=== PATIENT | female | born 1990 | race Caucasian/White ===

== ENCOUNTER 2016-04-12 19:33 | Emergency (ER) | payer MEDICAID ==
[2016-04-12 19:42] VITALS: BP 128/58
--- NOTE | 2016-04-12 20:16 | ER Document Report ---
ED Medical Screen (RME) - General Stated Complaint: VAGINAL BLEEDING Time seen by provider: 20:14 Mode of Arrival: Ambulatory Information source: Patient Notes: 25 yo female with dark vaginal bleeding for intermittently for 2 months. recent pap normal. Low abd pain all the way across tonight. Last dep shot january 2016. TRAVEL OUTSIDE OF THE [place] IN LAST 30 DAYS: No - Related Data Allergies/Adverse Reactions: Penicillins Allergy (Verified 12/17/15 02:13) tramadol Allergy (Verified 12/17/15 02:13) Past Medical History Pulmonary Medical History: Denies: Hx Tuberculosis Neurological Medical History: Denies: Hx Seizures GI Medical History: Denies: Hx Gastroesophageal Reflux Disease Musculoskeltal Medical History: Reports Hx Arthritis - Chronic knee pain, Reports Hx Musculoskeletal Deformity, Reports Hx Musculoskeletal Trauma Psychiatric Medical History: Reports: Hx Attention Deficit Hyperactivity Disorder Past Surgical History: Reports: Hx Cholecystectomy - Had ERCP the next day for stones in the duct. Apparently may have had more. No report of ulcer. Denies : Hx Section, Hx Hysterectomy - Immunizations Immunizations up to date: Yes Hx Diphtheria, Pertussis, Tetanus Vaccination: Yes - 2013 Physical Exam - Vital signs Vitals: Temp Pulse Resp BP Pulse Ox 98.0 F 78 16 128/58 H 94 04/12/16 19:39 04/12/16 19:39 04/12/16 19:39 04/12/16 19:39 04/12/16 19:39 Course - Vital Signs Vital signs: Temp Pulse Resp BP Pulse Ox 98.0 F 78 16 128/58 H 94 04/12/16 19:39 04/12/16 19:39 04/12/16 19:39 04/12/16 19:39 04/12/16 19:39
[2016-04-12 20:50] LABS: ABSOLUTE BASOPHILS # (AUTO) 0.1 10^3/uL (0.0-0.2); ABSOLUTE EOSINOPHILS # (AUTO) 0.1 10^3/uL (0.0-0.6); ABSOLUTE MONOCYTES (AUTO) 0.5 10^3/uL (0.1-1.4); ABSOLUTE NEUT (AUTO) 5.2 10^3/uL (1.7-8.2); BASOPHILS % (AUTO) 0.9 % (0-2); EOSINOPHILS % (AUTO) 1.7 % (0-6); HEMATOCRIT 42.3 % (36.0-47.0); HEMOGLOBIN 14.6 g/dL (12.0-15.5); HGB HCT DIFFERENCE 1.5; LYMPHOCYTES % (AUTO) 25.6 % (13-45); MEAN CORPUSCULAR HEMOGLOBIN 30.7 pg (27.0-33.4); MEAN CORPUSCULAR HGB CONC 34.4 g/dL (32.0-36.0); MEAN CORPUSCULAR VOLUME 89 fl (80-97); MONOCYTES % (AUTO) 6.4 % (3-13); RED BLOOD COUNT 4.75 10^6/uL (3.72-5.28); SEGMENTED NEUTROPHILS % (AUTO) 65.4 % (42-78)
[2016-04-12 21:08] LABS: ALANINE AMINOTRANSFERASE 24 U/L (9-52); ALBUMIN 4.3 g/dL (3.5-5.0); ALKALINE PHOSPHATASE 81 U/L (38-126); ANION GAP 11 (5-19); ASPARTATE AMINO TRANSFERASE 19 U/L (14-36); BILIRUBIN,TOTAL 0.6 mg/dL (0.2-1.3); BLOOD UREA NITROGEN 21 mg/dL (7-20); CALCIUM 9.4 mg/dL (8.4-10.2); CARBON DIOXIDE 27 mmol/L (22-30); CHLORIDE 103 mmol/L (98-107); CREATININE RESULT 1.24 mg/dL (0.52-1.25); GLUCOSE 78 mg/dL (75-110); POTASSIUM 4.3 mmol/L (3.6-5.0); TOTAL PROTEIN 7.2 g/dL (6.3-8.2)
[2016-04-12 21:17] LABS: APPEARANCE,URINE CLEAR; BILIRUBIN,URINE NEGATIVE (NEGATIVE); GLUCOSE, URINE NEGATIVE (NEGATIVE); KETONES,URINE NEGATIVE (NEGATIVE); LEUKOCYTE ESTERASE,URINE NEGATIVE (NEGATIVE); NITRITE,URINE NEGATIVE (NEGATIVE); PROTEIN,URINE NEGATIVE (NEGATIVE); URINE SPECIFIC GRAVITY 1.029
--- NOTE | 2016-04-12 22:53 | ER Document Report ---
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 States that the symptoms started after she discontinued her Depo-Provera shot. No history of similar symptoms in the past. She has not seen her primary care physician regarding today's concerns. Nothing improves or worsens or symptoms. She does describe her abdominal pain is a mild , dull, intermittent abdominal cramping. She states that she is going through 1 -2 pads per day in terms of her bleeding. TRAVEL OUTSIDE OF THE [place] IN LAST 30 DAYS: No - Related Data Allergies/Adverse Reactions: Penicillins Allergy (Verified 04/12/16 20:15) tramadol Allergy (Verified 04/12/16 20:15) Past Medical History - General Information source: Patient - Social History Smoking Status: Never Smoker Frequency of alcohol use: None Drug Abuse: None Lives with: Spouse/Significant other Family History: Malignancy, Other - Sister was diagnosed and treated for spinal meningitis about 3 months ago.. denies: Arthritis, CAD, CVA, DM, Hyperlipidemia , Hypertension, Thyroid Disfunction Patient has suicidal ideation: No Patient has homicidal ideation: No Pulmonary Medical History: Denies: Hx Tuberculosis Neurological Medical History: Denies: Hx Seizures GI Medical History: Denies: Hx Gastroesophageal Reflux Disease Musculoskeltal Medical History: Reports Hx Arthritis - Chronic knee pain, Reports Hx Musculoskeletal Deformity, Reports Hx Musculoskeletal Trauma Psychiatric Medical History: Reports: Hx Attention Deficit Hyperactivity Disorder Past Surgical History: Reports: Hx Cholecystectomy - Had ERCP the next day for stones in the duct. Apparently may have had more. No report of ulcer. Denies : Hx Section, Hx Hysterectomy - Immunizations Immunizations up to date: Yes Hx Diphtheria, Pertussis, Tetanus Vaccination: Yes - 2013 Review of Systems - Review of Systems Notes: Constitutional: Negative for fever. HENT: Negative for sore throat. Eyes: Negative for visual changes. Cardiovascular: Negative for chest pain. Respiratory: Negative for shortness of breath. Gastrointestinal: Positive for abdominal cramping, negative for vomiting or diarrhea. Genitourinary: Negative for dysuria. Positive for vaginal bleeding Musculoskeletal: Negative for back pain. Skin: Negative for rash. Neurological: Negative for headaches, weakness or numbness. 10 point ROS negative except as marked above and in HPI. Physical Exam - Vital signs Vitals: Temp Pulse Resp BP Pulse Ox 98.0 F 78 16 128/58 H 94 04/12/16 19:39 04/12/16 19:39 04/12/16 19:39 04/12/16 19:39 04/12/16 19:39 Interpretation: Normal Notes: PHYSICAL EXAMINATION: GENERAL: Well-appearing, well-nourished and in no acute distress. HEAD: Atraumatic, normocephalic. EYES: Pupils equal round and reactive to light, extraocular movements intact, sclera anicteric, conjunctiva are normal. ENT: nares patent, oropharynx clear without exudates. Moist mucous membranes. NECK: Normal range of motion, supple without lymphadenopathy LUNGS: Breath sounds clear to auscultation bilaterally and equal. No wheezes rales or rhonchi. HEART: Regular rate and rhythm without murmurs ABDOMEN: Soft, nontender, normoactive bowel sounds. No guarding, no rebound. No masses appreciated. EXTREMITIES: Normal range of motion, no pitting or edema. No cyanosis. NEUROLOGICAL: No focal neurological deficits. Moves all extremities spontaneously and on command. PSYCH: Normal mood, normal affect. SKIN: Warm, Dry, normal turgor, no rashes or lesions noted. Course - Re-evaluation Re-evalutation: 04/13/16 04:21 Presentation is most consistent with dysfunctional uterine bleeding and otherwise well-appearing patient. Her hemoglobin was within normal limits. She is not . No tachycardia or hypotension. Examination is otherwise unremarkable. She denies bleeding through more than 2 pads an hour at any point in time. No indication for ultrasound at this time based on benign exam, vitals and laboratories. No active bleeding at this time. Patient will be started on oral control pills to help discontinue the bleeding. She has been encouraged to follow-up with [facility]UR[facility]. Return precautions have been discussed. - Vital Signs Vital signs: Temp Pulse Resp BP Pulse Ox 98.0 F 78 16 128/58 H 94 04/12/16 19:39 04/12/16 19:39 04/12/16 19:39 04/12/16 19:39 04/12/16 19:39 - Laboratory Result Diagrams: 04/12/16 19:00 04/12/16 19:00 Laboratory results interpreted by me: 04/12/16 04/12/16 19:00 20:45 BUN 21 H Est GFR (Non-Af Amer) 54 L Urine Urobilinogen 2.0 H Discharge - Discharge Clinical Impression: Dysfunctional uterine bleeding Condition: Good Disposition: HOME, SELF-CARE Additional Instructions: You were seen today for dysfunctional uterine bleeding. This is when you have vaginal bleeding and abdominal cramping off of your normal menstrual cycle. You have been started on control pills to help regulate your cycle and control your symptoms. You need to follow-up with [facility]OG[facility] NURSE or your primary care physician the next 1-3 days. Return immediately if you worsening pain, you began bleeding through more than 2 pads per hour for more than 3 hours, you pass out, have persistent vomiting, develop a fever greater than 100.4F, or any other symptoms that are concerning to you. Prescriptions: Norgestimate-Ethinyl Estradiol [Sprintec 28 Day Tablet] 1 each PO DAILY #1 packet Forms: Return to Work Referrals: HARMONY ASH S[facility]ER [Primary Care Provider] - Follow up in 3-5 days
[2016-04-12] MEDS ORDERED: KETOROLAC TROMETHAMINE 60 MG/2 ML SDV ONE (23:30)
[2016-04-13] MEDS ORDERED: KETOROLAC TROMETHAMINE 60 MG/2 ML SDV IM ONE (01:51)
== END 2016-04-12 23:35 | disposition home or self-care (01) ==
LOC: ER 19:33
DX: N93.8 Other specified abnormal uterine and vaginal bleeding (principal); R10.30 Lower abdominal pain, unspecified; Z88.0 Allergy status to penicillin; Z88.5 Allergy status to narcotic agent; Z90.49 Acquired absence of other specified parts of digestive tract
CPT/HCPCS: 99284; 96372; 36415; 87086; 84703; 85025; 80053; 81001; J1885

== ENCOUNTER 2016-05-22 21:33 | Emergency (ER) | payer MEDICAID ==
[2016-05-22] MEDS ORDERED: ONDANSETRON 4 MG TAB.RAPDIS PO ONE (22:39)
[2016-05-22] MEDS ORDERED: ACETAMINOPHEN 325 MG TABLET PO ONE (22:39)
--- NOTE | 2016-05-22 22:39 | ER Document Report ---
ED Medical Screen (RME) - General Stated Complaint: HEADACHE,VOMITING Time seen by provider: 22:37 Mode of Arrival: Ambulatory Information source: Patient Notes: 25-year-old female presents to ED for headache nausea and vomiting and lightheadedness since about 5 PM. States she was on the depo then stopped taking the depo in March has not had a period since. Does not remember her last menstrual period. I have greeted and performed a rapid initial assessment of this patient. A comprehensive ED assessment and evaluation of the patient, analysis of test results and completion of medical decision making process will be conducted by an additional ED providers. TRAVEL OUTSIDE OF THE [place] IN LAST 30 DAYS: No - Related Data Allergies/Adverse Reactions: Penicillins Allergy (Verified 04/12/16 20:15) tramadol Allergy (Verified 04/12/16 20:15) Past Medical History Pulmonary Medical History: Denies: Hx Tuberculosis Neurological Medical History: Denies: Hx Seizures GI Medical History: Denies: Hx Gastroesophageal Reflux Disease Musculoskeltal Medical History: Reports Hx Arthritis - Chronic knee pain, Reports Hx Musculoskeletal Deformity, Reports Hx Musculoskeletal Trauma Psychiatric Medical History: Reports: Hx Attention Deficit Hyperactivity Disorder Past Surgical History: Reports: Hx Cholecystectomy - Had ERCP the next day for stones in the duct. Apparently may have had more. No report of ulcer. Denies : Hx Section, Hx Hysterectomy - Immunizations Immunizations up to date: Yes Hx Diphtheria, Pertussis, Tetanus Vaccination: Yes - 2013 Physical Exam - Vital signs Vitals: Temp Pulse Resp BP Pulse Ox 98.0 F 72 12 119/56 L 99 05/22/16 22:36 05/22/16 22:36 05/22/16 22:36 05/22/16 22:36 05/22/16 22:36 Course - Vital Signs Vital signs: Temp Pulse Resp BP Pulse Ox 98.0 F 72 12 119/56 L 99 05/22/16 22:36 05/22/16 22:36 05/22/16 22:36 05/22/16 22:36 05/22/16 22:36
[2016-05-23 02:52] LABS: ABSOLUTE BASOPHILS # (AUTO) 0.1 10^3/uL (0.0-0.2); ABSOLUTE EOSINOPHILS # (AUTO) 0.1 10^3/uL (0.0-0.6); ABSOLUTE LYMPHOCYTES (AUTO) 2.5 10^3/uL (0.5-4.7); ABSOLUTE MONOCYTES (AUTO) 0.6 10^3/uL (0.1-1.4); ABSOLUTE NEUT (AUTO) 5.8 10^3/uL (1.7-8.2); BASOPHILS % (AUTO) 0.6 % (0-2); EOSINOPHILS % (AUTO) 1.4 % (0-6); HEMATOCRIT 39.2 % (36.0-47.0); HEMOGLOBIN 13.8 g/dL (12.0-15.5); HGB HCT DIFFERENCE 2.2; LYMPHOCYTES % (AUTO) 27.6 % (13-45); MEAN CORPUSCULAR HEMOGLOBIN 31.8 pg (27.0-33.4); MEAN CORPUSCULAR HGB CONC 35.2 g/dL (32.0-36.0); MEAN CORPUSCULAR VOLUME 90 fl (80-97); MONOCYTES % (AUTO) 6.2 % (3-13); RED BLOOD COUNT 4.35 10^6/uL (3.72-5.28); RED CELL DISTRIBUTION WIDTH 12.7 % (11.5-14.0); SEGMENTED NEUTROPHILS % (AUTO) 64.2 % (42-78); WHITE BLOOD COUNT 9.1 10^3/uL (4.0-10.5)
[2016-05-23] MEDS ORDERED: DIPHENHYDRAMINE HCL 50 MG/ML VIAL IV ONE (02:54)
[2016-05-23] MEDS ORDERED: NORMAL SALINE 1000 ML 1,000 ML IV PRN (02:54)
[2016-05-23] MEDS ORDERED: METOCLOPRAMIDE HCL INJ/PF 10 MG/2 ML SDV IV ONE (02:54)
[2016-05-23 03:01] LABS: ALANINE AMINOTRANSFERASE 18 U/L (9-52); ALBUMIN 3.6 g/dL (3.5-5.0); ALKALINE PHOSPHATASE 81 U/L (38-126); ANION GAP 10 (5-19); ASPARTATE AMINO TRANSFERASE 18 U/L (14-36); BILIRUBIN,TOTAL 0.4 mg/dL (0.2-1.3); BLOOD UREA NITROGEN 21 mg/dL (7-20); CALCIUM 9.4 mg/dL (8.4-10.2); CARBON DIOXIDE 26 mmol/L (22-30); CHLORIDE 104 mmol/L (98-107); CREATININE RESULT 0.74 mg/dL (0.52-1.25); GLUCOSE 115 mg/dL (75-110); POTASSIUM 3.9 mmol/L (3.6-5.0); SODIUM 139.5 mmol/L (137-145); TOTAL PROTEIN 6.8 g/dL (6.3-8.2)
--- NOTE | 2016-05-23 03:32 | ER Document Report ---
ED Headache - General Chief Complaint: Headache Stated Complaint: HEADACHE,VOMITING Time seen by provider: 03:26 Mode of Arrival: Ambulatory Information source: Patient TRAVEL OUTSIDE OF THE [place] IN LAST 30 DAYS: No - HPI Patient complains to provider of: Headache, "Migraine" Patient reports: Hx chronic headaches Onset: This afternoon Onset was: Gradual Timing: Better Quality of pain: Achy, Pressure Severity: Moderate Pain Level: 3 Associated symptoms: Double/blurred vision, Lightheaded, Nausea/vomiting Similar symptoms previously: Yes Recently seen / treated by doctor: No Notes: Patient is a 25-year-old female who presents to emergency room complaining of headache with lightheadedness, nausea, vomiting 3 episodes, blurred vision, she denies a head injury, no fevers, no next deafness, pain is in the frontal region, inconsistent with headaches that she has had multiple times in the past , she has not taken anything at home for her symptoms - Related Data Allergies/Adverse Reactions: Penicillins Allergy (Verified 05/22/16 22:40) tramadol Allergy (Verified 05/22/16 22:40) Past Medical History - General Information source: Patient - Social History Smoking Status: Current Every Day Smoker Chew tobacco use (# tins/day): No Frequency of alcohol use: None Drug Abuse: None Family History: Malignancy, Other - Sister was diagnosed and treated for spinal meningitis about 3 months ago.. denies: Arthritis, CAD, CVA, DM, Hyperlipidemia , Hypertension, Thyroid Disfunction Patient has suicidal ideation: No Patient has homicidal ideation: No Pulmonary Medical History: Denies: Hx Tuberculosis Neurological Medical History: Denies: Hx Seizures Renal/ Medical History: Denies: Hx Peritoneal Dialysis GI Medical History: Denies: Hx Gastroesophageal Reflux Disease Musculoskeltal Medical History: Reports Hx Arthritis - Chronic knee pain, Reports Hx Musculoskeletal Deformity, Reports Hx Musculoskeletal Trauma Psychiatric Medical History: Reports: Hx Attention Deficit Hyperactivity Disorder Past Surgical History: Reports: Hx Cholecystectomy - Had ERCP the next day for stones in the duct. Apparently may have had more. No report of ulcer. Denies : Hx Section, Hx Hysterectomy - Immunizations Immunizations up to date: Yes Hx Diphtheria, Pertussis, Tetanus Vaccination: Yes - 2013 Review of Systems - Review of Systems Constitutional: No symptoms reported EENT: No symptoms reported Cardiovascular: No symptoms reported Respiratory: No symptoms reported Gastrointestinal: See HPI Genitourinary: No symptoms reported Female Genitourinary: No symptoms reported Musculoskeletal: No symptoms reported Skin: No symptoms reported Hematologic/Lymphatic: No symptoms reported Neurological/Psychological: See HPI -: Yes All other systems reviewed and negative Physical Exam - Vital signs Vitals: Temp Pulse Resp BP Pulse Ox 98.0 F 72 12 119/56 L 99 05/22/16 22:36 05/22/16 22:36 05/22/16 22:36 05/22/16 22:36 05/22/16 22:36 Interpretation: Normal - General General appearance: Appears well, Alert - HEENT Head: Normocephalic, Atraumatic Eyes: Normal Conjunctiva: Normal Extraocular movements intact: Yes Eyelashes: Normal Pupils: PERRL Sinus: Frontal - Mild frontal sinus tenderness Nasal: Normal Mouth/Lips: Normal Mucous membranes: Normal Pharynx: Normal Neck: Normal - Respiratory Respiratory status: No respiratory distress Chest status: Nontender Breath sounds: Normal Chest palpation: Normal - Cardiovascular Rhythm: Regular Heart sounds: Normal auscultation Murmur: No - Abdominal Inspection: Normal Distension: No distension Bowel sounds: Normal Tenderness: Nontender Organomegaly: No organomegaly - Back Back: Normal, Nontender - Extremities General upper extremity: Normal inspection, Nontender, Normal color, Normal ROM , Normal temperature General lower extremity: Normal inspection, Nontender, Normal color, Normal ROM , Normal temperature, Normal weight bearing. No: Lisa's sign - Neurological Neuro grossly intact: Yes Cognition: Normal Orientation: AAOx4 Matteson Coma Scale Eye Opening: Spontaneous [place] Coma Scale Verbal: Oriented Samira Coma Scale Motor: Obeys Commands Samira Coma Scale Total: 15 Speech: Normal Motor strength normal: LUE, RUE, LLE, RLE Sensory: Normal - Psychological Associated symptoms: Normal affect, Normal mood - Skin Skin Temperature: Warm Skin Moisture: Dry Skin Color: Normal Course - Re-evaluation Re-evalutation: 05/23/16 03:26 Patient resting comfortably, reports feeling much better and wants to go home - Vital Signs Vital signs: Temp Pulse Resp BP Pulse Ox 98.1 F 74 18 120/74 100 05/23/16 03:44 05/23/16 03:44 05/23/16 03:44 05/23/16 03:44 05/23/16 03:44 - Laboratory Result Diagrams: 05/23/16 02:41 05/23/16 02:41 Laboratory results interpreted by me: 05/23/16 02:41 BUN 21 H Glucose 115 H Discharge - Discharge Clinical Impression: Headache Qualifiers: Headache type: unspecified Headache chronicity pattern: acute headache Intractability: not intractable Qualified Code(s): R51 - Headache Condition: Stable Disposition: HOME, SELF-CARE Instructions: Headache ([facility]) Additional Instructions: Follow up with your primary care provider in one to 2 days. Return to the emergency room immediately if symptoms worsen or any additional concerns. Forms: Return to Work
[2016-05-23 03:46] VITALS: BP 120/74
== END 2016-05-23 03:35 | disposition home or self-care (01) ==
LOC: ER 21:33
DX: R51 Headache (principal); R42 Dizziness and giddiness; R11.2 Nausea with vomiting, unspecified; H53.8 Other visual disturbances; F17.200 Nicotine dependence, unspecified, uncomplicated; Z88.0 Allergy status to penicillin; Z88.5 Allergy status to narcotic agent
CPT/HCPCS: 99284; 96374; 96375; 36415; 84702; 85025; 80053; J3490; J1200; S0119; J2765

== ENCOUNTER 2016-08-09 16:24 | Emergency (ER) | payer MEDICAID ==
--- NOTE | 2016-08-09 17:01 | ER Document Report ---
ED Medical Screen (RME) - General Chief Complaint: Vaginal Bleeding Stated Complaint: VOMITING,URINARY PAIN Notes: 25 yo female c/o dysuria x 3 days, + n/v. no fever, + low back pain, + lower abdominal pain. no vaginal discharge, pain or odor. + vaginal bleeding x 3 days, passed large clot last night. pt has not had period x 2 months. no chronic illness TRAVEL OUTSIDE OF THE [place] IN LAST 30 DAYS: No - Related Data Allergies/Adverse Reactions: Penicillins Allergy (Verified 08/09/16 16:31) tramadol Allergy (Verified 08/09/16 16:31) Past Medical History Pulmonary Medical History: Denies: Hx Tuberculosis Neurological Medical History: Denies: Hx Seizures Renal/ Medical History: Denies: Hx Peritoneal Dialysis GI Medical History: Denies: Hx Gastroesophageal Reflux Disease Musculoskeltal Medical History: Reports Hx Arthritis - Chronic knee pain, Reports Hx Musculoskeletal Deformity, Reports Hx Musculoskeletal Trauma Psychiatric Medical History: Reports: Hx Attention Deficit Hyperactivity Disorder Past Surgical History: Reports: Hx Cholecystectomy - Had ERCP the next day for stones in the duct. Apparently may have had more. No report of ulcer. Denies : Hx Section, Hx Hysterectomy - Immunizations Immunizations up to date: Yes Hx Diphtheria, Pertussis, Tetanus Vaccination: Yes - 2013 Physical Exam - Vital signs Vitals: Temp Pulse Resp BP Pulse Ox 98.5 F 96 16 125/64 97 08/09/16 16:28 08/09/16 16:28 08/09/16 16:28 08/09/16 16:28 08/09/16 16:28 Course - Vital Signs Vital signs: Temp Pulse Resp BP Pulse Ox 98.5 F 96 16 125/64 97 08/09/16 16:28 08/09/16 16:28 08/09/16 16:28 08/09/16 16:28 08/09/16 16:28
[2016-08-09 17:54] LABS: ABSOLUTE BASOPHILS # (AUTO) 0.1 10^3/uL (0.0-0.2); ABSOLUTE EOSINOPHILS # (AUTO) 0.1 10^3/uL (0.0-0.6); ABSOLUTE LYMPHOCYTES (AUTO) 1.6 10^3/uL (0.5-4.7); ABSOLUTE MONOCYTES (AUTO) 0.5 10^3/uL (0.1-1.4); ABSOLUTE NEUT (AUTO) 6.9 10^3/uL (1.7-8.2); BASOPHILS % (AUTO) 0.6 % (0-2); EOSINOPHILS % (AUTO) 1.2 % (0-6); HEMATOCRIT 42.6 % (36.0-47.0); HEMOGLOBIN 14.7 g/dL (12.0-15.5); HGB HCT DIFFERENCE 1.5; LYMPHOCYTES % (AUTO) 17.8 % (13-45); MEAN CORPUSCULAR HEMOGLOBIN 31.3 pg (27.0-33.4); MEAN CORPUSCULAR HGB CONC 34.5 g/dL (32.0-36.0); MEAN CORPUSCULAR VOLUME 91 fl (80-97); MONOCYTES % (AUTO) 5.7 % (3-13); RED CELL DISTRIBUTION WIDTH 13.1 % (11.5-14.0); SEGMENTED NEUTROPHILS % (AUTO) 74.7 % (42-78); WHITE BLOOD COUNT 9.3 10^3/uL (4.0-10.5)
[2016-08-09 17:55] LABS: APPEARANCE,URINE CLOUDY; BILIRUBIN,URINE NEGATIVE (NEGATIVE); GLUCOSE, URINE NEGATIVE (NEGATIVE); KETONES,URINE NEGATIVE (NEGATIVE); LEUKOCYTE ESTERASE,URINE MODERATE (NEGATIVE); NITRITE,URINE NEGATIVE (NEGATIVE); PROTEIN,URINE 30 mg/dL (NEGATIVE); URINE SPECIFIC GRAVITY 1.027
--- NOTE | 2016-08-09 17:59 | ER Document Report ---
ED GI/ - General Chief Complaint: Vaginal Bleeding Stated Complaint: VOMITING,URINARY PAIN Notes: 25 yo female c/o dysuria, n/v, vaginal bleeding x 3 days. passed large clot last night. no vaginal pain, odor or discharge TRAVEL OUTSIDE OF THE [place] IN LAST 30 DAYS: No - HPI Patient complains to provider of: Abdominal pain, Dysuria, Vaginal bleeding Timing/Duration: Gradual, Persistent Location: Suprapubic Vaginal bleeding (Compared to normal period): Similar Menstrual period history: Irregular - no periord x 2 months. off Depo x 6 months Sexual history: Active Associated symptoms: Nausea. denies: Vomiting Exacerbated by: Denies Relieved by: Denies Similar symptoms previously: No - Related Data Allergies/Adverse Reactions: Penicillins Allergy (Verified 08/09/16 16:31) tramadol Allergy (Verified 08/09/16 16:31) Past Medical History - General Information source: Patient - Social History Smoking Status: Current Every Day Smoker Frequency of alcohol use: None Drug Abuse: None Lives with: Family Family History: Malignancy, Other - Sister was diagnosed and treated for spinal meningitis about 3 months ago.. denies: Arthritis, CAD, CVA, DM, Hyperlipidemia , Hypertension, Thyroid Disfunction Patient has suicidal ideation: No Patient has homicidal ideation: No - Medical History Medical History: Negative Pulmonary Medical History: Denies: Hx Tuberculosis Neurological Medical History: Denies: Hx Seizures Renal/ Medical History: Denies: Hx Peritoneal Dialysis GI Medical History: Denies: Hx Gastroesophageal Reflux Disease Musculoskeltal Medical History: Reports Hx Arthritis - Chronic knee pain, Reports Hx Musculoskeletal Deformity, Reports Hx Musculoskeletal Trauma Psychiatric Medical History: Reports: Hx Attention Deficit Hyperactivity Disorder Past Surgical History: Reports: Hx Cholecystectomy - Had ERCP the next day for stones in the duct. Apparently may have had more. No report of ulcer. Denies : Hx Section, Hx Hysterectomy - Immunizations Immunizations up to date: Yes Hx Diphtheria, Pertussis, Tetanus Vaccination: Yes - 2013 Review of Systems - Review of Systems Constitutional: No symptoms reported EENT: No symptoms reported Cardiovascular: No symptoms reported Respiratory: No symptoms reported Gastrointestinal: No symptoms reported Genitourinary: See HPI Female Genitourinary: No symptoms reported Musculoskeletal: No symptoms reported Skin: No symptoms reported Hematologic/Lymphatic: No symptoms reported Neurological/Psychological: No symptoms reported Physical Exam - Vital signs Vitals: Temp Pulse Resp BP Pulse Ox 98.5 F 96 16 125/64 97 08/09/16 16:28 08/09/16 16:28 08/09/16 16:28 08/09/16 16:28 08/09/16 16:28 Interpretation: Normal - General General appearance: Appears well, Alert - HEENT Head: Normocephalic, Atraumatic Eyes: Normal Pupils: PERRL - Respiratory Respiratory status: No respiratory distress Chest status: Nontender Breath sounds: Normal Chest palpation: Normal - Cardiovascular Rhythm: Regular Heart sounds: Normal auscultation Murmur: No - Abdominal Inspection: Normal Distension: No distension Bowel sounds: Normal Tenderness: Tender. No: McBurney's point, Najera's sign Organomegaly: No organomegaly - Back Back: Normal, Nontender - Extremities General upper extremity: Normal inspection, Nontender, Normal color, Normal ROM , Normal temperature General lower extremity: Normal inspection, Nontender, Normal color, Normal ROM , Normal temperature, Normal weight bearing. No: Lisa's sign - Neurological Neuro grossly intact: Yes Cognition: Normal Orientation: AAOx4 Samira Coma Scale Eye Opening: Spontaneous Samira Coma Scale Verbal: Oriented Samira Coma Scale Motor: Obeys Commands [place] Coma Scale Total: 15 Speech: Normal Motor strength normal: LUE, RUE, LLE, RLE Sensory: Normal - Psychological Associated symptoms: Normal affect, Normal mood - Skin Skin Temperature: Warm Skin Moisture: Dry Skin Color: Normal Course - Re-evaluation Re-evalutation: 08/09/16 19:53 HCG low @ 8.97. UA + moderate leukocytes. reviewed results with patient - Vital Signs Vital signs: Temp Pulse Resp BP Pulse Ox 98.5 F 96 16 125/64 97 08/09/16 16:28 08/09/16 16:28 08/09/16 16:28 08/09/16 16:28 08/09/16 16:28 - Laboratory Result Diagrams: 08/09/16 17:20 08/09/16 17:20 Laboratory results interpreted by me: 08/09/16 08/09/16 08/09/16 17:20 17:20 17:20 Serum HCG, Qual POSITIVE H Beta HCG, Quant 8.91 H Urine Protein 30 H Urine Urobilinogen 2.0 H Ur Leukocyte Esterase MODERATE H Discharge - Discharge Clinical Impression: Bleeding in early UTI (urinary tract infection) Qualifiers: Urinary tract infection type: acute cystitis Hematuria presence: without hematuria Qualified Code(s): N30.00 - Acute cystitis without hematuria Qualifiers: Weeks of gestation: less than 8 weeks Qualified Code(s): Z3A.01 - Less than 8 weeks gestation of Condition: Stable Disposition: HOME, SELF-CARE Instructions: Nitrofurantoin ([facility]), Urinary Tract Infection ([facility]), Threatened Miscarriage ([facility]) Additional Instructions: Your test was postitive, but your hormone count is very low This may be indicating an early or a threatened miscarriage Please repeat pregancy hormone count in 48h, outpatient lab slip given to you You also have a urinary tract infection Please take antibiotics as prescribed A urine culture is pending. If any further treatment is needed, we will contact you Prescriptions: Nitrofurantoin Macrocrystal [Macrodantin] 100 mg PO QID #28 capsule Forms: Follow-Up Laboratory Testing Referrals: HARMONY ASH FNP [Primary Care Provider] - Follow up as needed
[2016-08-09 18:17] LABS: ALANINE AMINOTRANSFERASE 28 U/L (9-52); ALBUMIN 4.2 g/dL (3.5-5.0); ALKALINE PHOSPHATASE 74 U/L (38-126); ANION GAP 10 (5-19); ASPARTATE AMINO TRANSFERASE 20 U/L (14-36); BILIRUBIN,DIRECT 0.3 mg/dL (0.0-0.4); BILIRUBIN,TOTAL 0.6 mg/dL (0.2-1.3); BLOOD UREA NITROGEN 13 mg/dL (7-20); CALCIUM 9.7 mg/dL (8.4-10.2); CARBON DIOXIDE 29 mmol/L (22-30); CHLORIDE 104 mmol/L (98-107); CREATININE RESULT 0.88 mg/dL (0.52-1.25); GLUCOSE 82 mg/dL (75-110); POTASSIUM 4.8 mmol/L (3.6-5.0); SODIUM 143.4 mmol/L (137-145)
[2016-08-09 20:53] VITALS: BP 132/84
[2016-08-09 21:03] LABS: CHLAM PCR NOT DETECTED (NOT DETECT)
== END 2016-08-09 20:35 | disposition home or self-care (01) ==
LOC: ER 16:24
DX: O20.9 Hemorrhage in early pregnancy, unspecified (principal); O23.11 Infections of bladder in pregnancy, first trimester; O26.891 Other specified pregnancy related conditions, first trimester; R11.0 Nausea; O99.331 Smoking (tobacco) complicating pregnancy, first trimester; Z3A.01 Less than 8 weeks gestation of pregnancy; Z88.0 Allergy status to penicillin; Z88.5 Allergy status to narcotic agent; Z90.49 Acquired absence of other specified parts of digestive tract
CPT/HCPCS: 36415; 76817; 80053; 81001; 84702; 84703; 85025; 87210; 87491; 87591; 93976; 99284

== ENCOUNTER → 2016-08-11 | Outpatient (CLI) | payer MEDICAID | LOC: LAB 21:15 | PROVIDERS: ATTEND Student in an Organized Health Care Education/Training Program | DX: O20.9 Hemorrhage in early pregnancy, unspecified (principal) | CPT/HCPCS: 36415; 84702 ==

== ENCOUNTER 2016-09-07 14:16 | Emergency (ER) | payer MEDICAID ==
[2016-09-07 14:31] VITALS: BP 120/52
[2016-09-07] MEDS ORDERED: METOCLOPRAMIDE HCL ORAL SOLN 10 MG/10 ML UDCUP PO ONE (14:45)
--- NOTE | 2016-09-07 14:45 | ER Document Report ---
ED GI/ - General Chief Complaint: Vomiting Stated Complaint: PAINFUL URINATION Time Seen by Provider: 09/07/16 14:39 Mode of Arrival: Ambulatory Information source: Patient TRAVEL OUTSIDE OF THE [place] IN LAST 30 DAYS: No - HPI Patient complains to provider of: Abdominal pain, Dysuria, , Vomiting Onset: Other - 4 days Quality of pain: Achy, Burning Severity at maximum: Mild Severity in ED: Mild Location: Other - diffuse Vaginal bleeding (Compared to normal period): None Menstrual period history: Associated symptoms: Dysuria, Nausea, Urinary frequency, Vomiting Exacerbated by: Denies Relieved by: Denies Similar symptoms previously: Yes Recently seen / treated by doctor: Yes Notes: 09/07/16 14:42 Patient is a 25-year-old female who is a with no prior related complications, who presents to the emergency room today complaining of 4 days history of nausea and vomiting with dysuria, she reports that she spoke with her primary care provider yesterday evening on the phone who told her it was okay to take ibuprofen for her symptoms, patient states she is approximately 10 weeks , [facility], she denies any vaginal bleeding or cramping, she does report diffuse abdominal pain with dysuria, urinary frequency, she took Pyridium or Azo yesterday which has helped with her symptoms slightly - Related Data Allergies/Adverse Reactions: Penicillins Allergy (Verified 09/07/16 14:28) tramadol Allergy (Verified 09/07/16 14:28) Past Medical History - General Information source: Patient - Social History Smoking Status: Unknown if Ever Smoked Family History: Malignancy, Other - Sister was diagnosed and treated for spinal meningitis about 3 months ago.. denies: Arthritis, CAD, CVA, DM, Hyperlipidemia , Hypertension, Thyroid Disfunction Patient has suicidal ideation: No Patient has homicidal ideation: No Pulmonary Medical History: Denies: Hx Tuberculosis Neurological Medical History: Denies: Hx Seizures Renal/ Medical History: Denies: Hx Peritoneal Dialysis GI Medical History: Denies: Hx Gastroesophageal Reflux Disease Musculoskeltal Medical History: Reports Hx Arthritis - Chronic knee pain, Reports Hx Musculoskeletal Deformity, Reports Hx Musculoskeletal Trauma Psychiatric Medical History: Reports: Hx Attention Deficit Hyperactivity Disorder Past Surgical History: Reports: Hx Cholecystectomy - Had ERCP the next day for stones in the duct. Apparently may have had more. No report of ulcer. Denies : Hx Section, Hx Hysterectomy - Immunizations Immunizations up to date: Yes Hx Diphtheria, Pertussis, Tetanus Vaccination: Yes - 2013 Review of Systems - Review of Systems Constitutional: No symptoms reported EENT: No symptoms reported Cardiovascular: No symptoms reported Respiratory: No symptoms reported Gastrointestinal: See HPI Genitourinary: See HPI Female Genitourinary: See HPI Musculoskeletal: No symptoms reported Skin: No symptoms reported Hematologic/Lymphatic: No symptoms reported Neurological/Psychological: No symptoms reported -: Yes All other systems reviewed and negative Physical Exam - Vital signs Vitals: Temp Pulse Resp BP Pulse Ox 97.9 F 51 L 16 120/52 L 98 09/07/16 14:28 09/07/16 14:28 09/07/16 14:28 09/07/16 14:28 09/07/16 14:28 Interpretation: Bradycardic - General General appearance: Appears well, Alert - HEENT Head: Normocephalic, Atraumatic Eyes: Normal Pupils: PERRL - Respiratory Respiratory status: No respiratory distress Chest status: Nontender Breath sounds: Normal Chest palpation: Normal - Cardiovascular Rhythm: Regular Heart sounds: Normal auscultation Murmur: No - Abdominal Inspection: Normal Distension: No distension Bowel sounds: Normal Tenderness: Tender - Mild diffuse tenderness, increased in suprapubic region Organomegaly: No organomegaly - Back Back: Normal, Nontender - Extremities General upper extremity: Normal inspection, Nontender, Normal color, Normal ROM , Normal temperature General lower extremity: Normal inspection, Nontender, Normal color, Normal ROM , Normal temperature, Normal weight bearing. No: Lisa's sign - Neurological Neuro grossly intact: Yes Cognition: Normal Orientation: AAOx4 [place] Coma Scale Eye Opening: Spontaneous [place] Coma Scale Verbal: Oriented [place] Coma Scale Motor: Obeys Commands Samira Coma Scale Total: 15 Speech: Normal Motor strength normal: LUE, RUE, LLE, RLE Sensory: Normal - Psychological Associated symptoms: Normal affect, Normal mood - Skin Skin Temperature: Warm Skin Moisture: Dry Skin Color: Normal Course - Re-evaluation Re-evalutation: 09/07/16 18:48 Lab findings were discussed with patient at bedside, which are unremarkable except for urinary tract infection, she was discharged with instructions for follow-up and advised to return if symptoms worsen, patient acknowledges understanding and agreement with this plan - Vital Signs Vital signs: Temp Pulse Resp BP Pulse Ox 97.9 F 51 L 16 120/52 L 98 09/07/16 14:28 09/07/16 14:28 09/07/16 14:28 09/07/16 14:28 09/07/16 14:28 - Laboratory Result Diagrams: 09/07/16 15:35 09/07/16 15:35 Laboratory results interpreted by me: 09/07/16 09/07/16 09/07/16 15:35 15:35 15:35 WBC 11.2 H Seg Neutrophils % 79.6 H Absolute Neutrophils 9.0 H Beta HCG, Quant 64244.00 H Urine Protein 100 H Urine Glucose (UA) 50 H Urine Blood MODERATE H Urine Nitrite POSITIVE H Urine Urobilinogen 4.0 H Ur Leukocyte Esterase TRACE H Discharge - Discharge Clinical Impression: Urinary tract infection affecting Condition: Stable Disposition: HOME, SELF-CARE Instructions: Urinary Tract Infection ([facility]), Nitrofurantoin ([facility]) Additional Instructions: Follow up with your primary care provider and [facility] in one to 2 days. Return to the emergency room immediately if symptoms worsen or any additional concerns. Prescriptions: Metoclopramide HCl [Reglan 10 mg Tablet] 1 - 2 tab PO ASDIR PRN #25 tablet PRN Reason: Nitrofurantoin/Nitrofuran Mac [Macrobid 100 mg Capsule] 100 mg PO BID #20 capsule Referrals: MAXX NOLAND MD [Primary Care Provider] - Follow up as needed
[2016-09-07 15:47] LABS: ABSOLUTE EOSINOPHILS # (AUTO) 0.1 10^3/uL (0.0-0.6); ABSOLUTE LYMPHOCYTES (AUTO) 1.6 10^3/uL (0.5-4.7); ABSOLUTE MONOCYTES (AUTO) 0.6 10^3/uL (0.1-1.4); BASOPHILS % (AUTO) 0.4 % (0-2); EOSINOPHILS % (AUTO) 0.7 % (0-6); HEMATOCRIT 42.7 % (36.0-47.0); HEMOGLOBIN 14.6 g/dL (12.0-15.5); HGB HCT DIFFERENCE 1.1; LYMPHOCYTES % (AUTO) 14.3 % (13-45); MEAN CORPUSCULAR HEMOGLOBIN 30.5 pg (27.0-33.4); MEAN CORPUSCULAR HGB CONC 34.1 g/dL (32.0-36.0); MEAN CORPUSCULAR VOLUME 89 fl (80-97); RED BLOOD COUNT 4.77 10^6/uL (3.72-5.28); RED CELL DISTRIBUTION WIDTH 12.6 % (11.5-14.0); SEGMENTED NEUTROPHILS % (AUTO) 79.6 % (42-78); WHITE BLOOD COUNT 11.2 10^3/uL (4.0-10.5)
[2016-09-07 15:59] LABS: ALANINE AMINOTRANSFERASE 23 U/L (9-52); ALBUMIN 4.2 g/dL (3.5-5.0); ALKALINE PHOSPHATASE 70 U/L (38-126); ANION GAP 11 (5-19); ASPARTATE AMINO TRANSFERASE 18 U/L (14-36); BILIRUBIN,TOTAL 0.6 mg/dL (0.2-1.3); BLOOD UREA NITROGEN 9 mg/dL (7-20); CALCIUM 9.5 mg/dL (8.4-10.2); CARBON DIOXIDE 24 mmol/L (22-30); CHLORIDE 103 mmol/L (98-107); CREATININE RESULT 0.65 mg/dL (0.52-1.25); GLUCOSE 81 mg/dL (75-110); LIPASE 37.6 U/L (23-300); POTASSIUM 4.2 mmol/L (3.6-5.0); SODIUM 138.4 mmol/L (137-145); TOTAL PROTEIN 7.1 g/dL (6.3-8.2)
[2016-09-07 16:02] LABS: APPEARANCE,URINE SLIGHTLY-CLOUDY; BILIRUBIN,URINE NEGATIVE (NEGATIVE); GLUCOSE, URINE 50 mg/dL (NEGATIVE); KETONES,URINE NEGATIVE (NEGATIVE); LEUKOCYTE ESTERASE,URINE TRACE (NEGATIVE); NITRITE,URINE POSITIVE (NEGATIVE); PROTEIN,URINE 100 mg/dL (NEGATIVE); URINE SPECIFIC GRAVITY 1.015
[2016-09-07] MEDS ORDERED: NITROFURANTOIN MONOHYD/M-CRYST 100 MG CAPSULE PO ONE (16:42)
== END 2016-09-07 17:11 | disposition home or self-care (01) ==
LOC: ER 14:16
DX: O23.40 Unspecified infection of urinary tract in pregnancy, unspecified trimester (principal); O21.9 Vomiting of pregnancy, unspecified; O26.899 Other specified pregnancy related conditions, unspecified trimester; R30.0 Dysuria; R35.0 Frequency of micturition; R10.84 Generalized abdominal pain; Z3A.00 Weeks of gestation of pregnancy not specified; Z88.0 Allergy status to penicillin; Z88.5 Allergy status to narcotic agent
CPT/HCPCS: 99284; 36415; 87086; 84702; 83690; 85025; 87088; 80053; 81001; 87186; J3490 ×2; J8499

== ENCOUNTER 2016-09-26 23:36 | Emergency (ER) | payer MEDICAID ==
[2016-09-27 01:09] LABS: ABSOLUTE EOSINOPHILS # (AUTO) 0.1 10^3/uL (0.0-0.6); ABSOLUTE LYMPHOCYTES (AUTO) 2.1 10^3/uL (0.5-4.7); ABSOLUTE MONOCYTES (AUTO) 0.4 10^3/uL (0.1-1.4); ABSOLUTE NEUT (AUTO) 5.4 10^3/uL (1.7-8.2); BASOPHILS % (AUTO) 0.5 % (0-2); EOSINOPHILS % (AUTO) 1.8 % (0-6); HEMATOCRIT 39.2 % (36.0-47.0); HEMOGLOBIN 13.1 g/dL (12.0-15.5); HGB HCT DIFFERENCE 0.1; LYMPHOCYTES % (AUTO) 26.2 % (13-45); MEAN CORPUSCULAR HEMOGLOBIN 30.5 pg (27.0-33.4); MEAN CORPUSCULAR HGB CONC 33.5 g/dL (32.0-36.0); MEAN CORPUSCULAR VOLUME 91 fl (80-97); MONOCYTES % (AUTO) 5.1 % (3-13); RED CELL DISTRIBUTION WIDTH 12.7 % (11.5-14.0); SEGMENTED NEUTROPHILS % (AUTO) 66.4 % (42-78); WHITE BLOOD COUNT 8.1 10^3/uL (4.0-10.5)
--- NOTE | 2016-09-27 02:16 | ER Document Report ---
ED General - General Chief Complaint: Vaginal Bleeding Stated Complaint: VAGINAL BLEEDING Time Seen by Provider: 09/27/16 00:29 Mode of Arrival: Ambulatory Information source: Patient Notes: 25-year-old female presents with complaints of vaginal bleeding discharge with clots for the past 2 weeks. Patient notes she was seen here originally told that she may be miscarrying, notes her hCG quant has been intermittently going up and down. Patient was unsure if she did miscarry completely or not Denies any fevers or chills admits to thick discharge TRAVEL OUTSIDE OF THE [place] IN LAST 30 DAYS: No - HPI Onset: Other - 2 week duration Onset/Duration: Persistent Quality of pain: Cramping Severity: Mild Pain Level: 1 Associated symptoms: Other Exacerbated by: Denies Relieved by: Denies Similar symptoms previously: Yes Recently seen / treated by doctor: Yes - Related Data Allergies/Adverse Reactions: Penicillins Allergy (Verified 09/26/16 23:41) tramadol Allergy (Verified 09/26/16 23:41) Past Medical History - Social History Smoking Status: Never Smoker Cigarette use (# per day): No Chew tobacco use (# tins/day): No Smoking Education Provided: No Family History: Malignancy, Other - Sister was diagnosed and treated for spinal meningitis about 3 months ago.. denies: Arthritis, CAD, CVA, DM, Hyperlipidemia , Hypertension, Thyroid Disfunction Pulmonary Medical History: Denies: Hx Tuberculosis Neurological Medical History: Denies: Hx Seizures Renal/ Medical History: Denies: Hx Peritoneal Dialysis GI Medical History: Denies: Hx Gastroesophageal Reflux Disease Musculoskeltal Medical History: Reports Hx Arthritis - Chronic knee pain, Reports Hx Musculoskeletal Deformity, Reports Hx Musculoskeletal Trauma Psychiatric Medical History: Reports: Hx Attention Deficit Hyperactivity Disorder Past Surgical History: Reports: Hx Cholecystectomy - Had ERCP the next day for stones in the duct. Apparently may have had more. No report of ulcer. Denies : Hx Section, Hx Hysterectomy - Immunizations Immunizations up to date: Yes Hx Diphtheria, Pertussis, Tetanus Vaccination: Yes - 2013 Review of Systems - Review of Systems Notes: REVIEW OF SYSTEMS: CONSTITUTIONAL : Denies fever, chills, or sweats. Denies recent illness. EENT: Denies eye, ear, throat, or mouth pain or symptoms. Denies nasal or sinus congestion or discharge. Denies throat, tongue, or mouth swelling or difficulty swallowing. CARDIOVASCULAR: Denies chest pain. Denies palpitations or racing or irregular heart beat. Denies ankle edema. RESPIRATORY: Denies cough, cold, or chest congestion. Denies shortness of breath, difficulty breathing, or wheezing. GASTROINTESTINAL: Denies abdominal pain or distention. Denies nausea, vomiting , or diarrhea. Denies blood in vomitus, stools, or per rectum. Denies black, tarry stools. Denies constipation. GENITOURINARY: Denies difficulty urinating, painful urination, burning, frequency, blood in urine, or discharge. FEMALE GENITOURINARY: Admits pelvic pain discharge MUSCULOSKELETAL: Denies back or neck pain or stiffness. Denies joint pain or swelling. SKIN: Denies rash, lesions or sores. HEMATOLOGIC : Denies easy bruising or bleeding. LYMPHATIC: Denies swollen, enlarged glands. NEUROLOGICAL: Denies confusion or altered mental status. Denies passing out or loss of consciousness. Denies dizziness or lightheadedness. Denies headache. Denies weakness or paralysis or loss of use of either side. Denies problems with gait or speech. Denies sensory loss, numbness, or tingling. Denies seizures. PSYCHIATRIC: Denies anxiety or stress. Denies depression, suicidal ideation, or homicidal ideation. ALL OTHER SYSTEMS REVIEWED AND NEGATIVE. PHYSICAL EXAMINATION: GENERAL: Well-appearing, well-nourished and in no acute distress. HEAD: Atraumatic, normocephalic. EYES: Pupils equal round and reactive to light, extraocular movements intact, conjunctiva are normal. ENT: Nares patent, oropharynx clear without exudates. Moist mucous membranes. NECK: Normal range of motion, supple without lymphadenopathy LUNGS: Breath sounds clear to auscultation bilaterally and equal. No wheezes rales or rhonchi. HEART: Regular rate and rhythm without murmurs ABDOMEN: Soft, nontender, nondistended abdomen. No guarding, no rebound. No masses appreciated. Female : deferred Musculoskeletal: Normal range of motion, no pitting or edema. No cyanosis. NEUROLOGICAL: Cranial nerves grossly intact. Normal speech, normal gait. Normal sensory, motor exams PSYCH: Normal mood, normal affect. SKIN: Warm, Dry, normal turgor, no rashes or lesions noted. Dictation was performed using [employer] recognition software Course - Re-evaluation Re-evalutation: 09/27/16 02:15 HCG was 190, this is significantly lower than the 40,000 from a few weeks ago. Given that patient has passed clots I believe the patient has miscarried poor has been given to her After performing a Medical Screening Examination, I estimate there is LOW risk for ACUTE APPENDICITIS, BOWEL OBSTRUCTION, ACUTE CHOLECYSTITIS, PERFORATED DIVERTICULITIS, INCARCERATED HERNIA, PANCREATITIS, PELVIC INFLAMMATORY DISEASE, PERFORATED ULCER, ECTOPIC , or TUBO-OVARIAN ABSCESS, thus I consider the discharge disposition reasonable. Also, there is no evidence or peritonitis , sepsis, or toxicity. I have reevaluated this patient multiple times and no significant life threatening changes are noted. The patient and I have discussed the diagnosis and risks, and we agree with discharging home with close follow-up with the understanding that symptoms and presentations can change. We also discussed returning to the Emergency Department immediately if new or worsening symptoms occur. We have discussed the symptoms which are most concerning (e.g., bloody stool, fever, changing or worsening pain, vomiting) that necessitate immediate return. - Laboratory Result Diagrams: 09/27/16 00:55 Laboratory results interpreted by me: 09/27/16 00:55 Beta HCG, Quant 191.46 H Discharge - Discharge Clinical Impression: Miscarriage Condition: Stable Disposition: HOME, SELF-CARE Instructions: Miscarriage ([facility]) Referrals: HARMONY ASH FNP [Primary Care Provider] - Follow up as needed
[2016-09-27 02:39] VITALS: BP 104/49
== END 2016-09-27 02:30 | disposition home or self-care (01) ==
LOC: ER 23:36
DX: O03.9 Complete or unspecified spontaneous abortion without complication (principal); N93.9 Abnormal uterine and vaginal bleeding, unspecified
CPT/HCPCS: 36415; 84702; 85025; 99284

== ENCOUNTER 2016-10-06 23:51 | Emergency (ER) | payer MEDICAID ==
[2016-10-07 03:13] LABS: ABSOLUTE BASOPHILS # (AUTO) 0.1 10^3/uL (0.0-0.2); ABSOLUTE EOSINOPHILS # (AUTO) 0.2 10^3/uL (0.0-0.6); ABSOLUTE LYMPHOCYTES (AUTO) 2.1 10^3/uL (0.5-4.7); ABSOLUTE MONOCYTES (AUTO) 0.4 10^3/uL (0.1-1.4); ABSOLUTE NEUT (AUTO) 5.2 10^3/uL (1.7-8.2); BASOPHILS % (AUTO) 0.7 % (0-2); EOSINOPHILS % (AUTO) 2.1 % (0-6); HEMATOCRIT 39.3 % (36.0-47.0); HEMOGLOBIN 13.3 g/dL (12.0-15.5); HGB HCT DIFFERENCE 0.6; LYMPHOCYTES % (AUTO) 26.6 % (13-45); MEAN CORPUSCULAR HGB CONC 33.9 g/dL (32.0-36.0); MEAN CORPUSCULAR VOLUME 92 fl (80-97); RED CELL DISTRIBUTION WIDTH 12.9 % (11.5-14.0); SEGMENTED NEUTROPHILS % (AUTO) 65.6 % (42-78)
[2016-10-07 03:24] LABS: ALANINE AMINOTRANSFERASE 22 U/L (9-52); ALBUMIN 4.1 g/dL (3.5-5.0); ALKALINE PHOSPHATASE 70 U/L (38-126); ANION GAP 11 (5-19); ASPARTATE AMINO TRANSFERASE 16 U/L (14-36); BILIRUBIN,DIRECT 0.3 mg/dL (0.0-0.4); BILIRUBIN,TOTAL 0.5 mg/dL (0.2-1.3); BLOOD UREA NITROGEN 13 mg/dL (7-20); CALCIUM 9.1 mg/dL (8.4-10.2); CARBON DIOXIDE 26 mmol/L (22-30); CHLORIDE 107 mmol/L (98-107); CREATINE KINASE 67 U/L (30-135); CREATININE RESULT 0.74 mg/dL (0.52-1.25); GLUCOSE 78 mg/dL (75-110); SODIUM 144.4 mmol/L (137-145); TOTAL PROTEIN 7.1 g/dL (6.3-8.2)
[2016-10-07 03:42] LABS: CREATINE KINASE MB < 0.22 ng/mL (<4.55); TROPONIN I < 0.012 ng/mL
--- NOTE | 2016-10-07 03:42 | ER Document Report ---
ED General - General Chief Complaint: Chest pain, neck pain , arm numbness Stated Complaint: CHEST PAIN/NECK/ARM PAIN Time Seen by Provider: 10/07/16 03:28 Notes: Patient is a 25-year-old female comes emergency department for chief complaint of chest pain. She states it started suddenly tonight, she states it started in the left side of her chest around underneath her armpit, she is starting to notice it also in the right side of her chest. She denies any injury. She reports some coughing. Coughing started today. She denies fever, shortness of breath, nausea, vomiting, abdominal pain, flank pain, back pain. She denies dizziness or lightheadedness. He smokes, she denies any daily medications, denies any recent travel, worsening swelling, surgery, or personal or family history of blood clots. She denies any family history of cardiovascular disease at an early age. She denies cocaine use or any recreational drugs. TRAVEL OUTSIDE OF THE [place] IN LAST 30 DAYS: No - Related Data Allergies/Adverse Reactions: Penicillins Allergy (Verified 09/26/16 23:41) tramadol Allergy (Verified 09/26/16 23:41) Past Medical History - General Information source: Patient - Social History Smoking Status: Current Every Day Smoker Smoking Education Provided: Yes - <3 min Drug Abuse: None Lives with: Spouse/Significant other Family History: Malignancy, Other - Sister was diagnosed and treated for spinal meningitis about 3 months ago.. denies: Arthritis, CAD, CVA, DM, Hyperlipidemia , Hypertension, Thyroid Disfunction Pulmonary Medical History: Denies: Hx Tuberculosis Neurological Medical History: Denies: Hx Seizures Renal/ Medical History: Denies: Hx Peritoneal Dialysis GI Medical History: Denies: Hx Gastroesophageal Reflux Disease Musculoskeltal Medical History: Reports Hx Arthritis - Chronic knee pain, Reports Hx Musculoskeletal Deformity, Reports Hx Musculoskeletal Trauma Psychiatric Medical History: Reports: Hx Attention Deficit Hyperactivity Disorder Past Surgical History: Reports: Hx Cholecystectomy - Had ERCP the next day for stones in the duct. Apparently may have had more. No report of ulcer. Denies : Hx Section, Hx Hysterectomy - Immunizations Immunizations up to date: Yes Hx Diphtheria, Pertussis, Tetanus Vaccination: Yes - 2013 Physical Exam - Vital signs Vitals: Temp Pulse Resp BP Pulse Ox 98 F 63 16 118/73 99 10/07/16 03:39 10/07/16 03:39 10/07/16 03:39 10/07/16 03:39 10/07/16 03:39 Interpretation: Normal - General General appearance: Appears well, Alert In distress: None - HEENT Head: Normocephalic, Atraumatic Eyes: Normal Pupils: PERRL - Respiratory Respiratory status: No respiratory distress Chest status: Tender - Patient with tenderness noted over the mid chest on both sides extending over the left pectoral muscle towards the axilla in addition to this, otherwise unremarkable exam Breath sounds: Normal Chest palpation: Normal - Cardiovascular Rhythm: Regular. No: Tachycardia Heart sounds: Normal auscultation, S1 appreciated, S2 appreciated Murmur: No - Abdominal Inspection: Normal Distension: No distension Bowel sounds: Normal Tenderness: Nontender Organomegaly: No organomegaly - Back Back: Normal, Nontender. No: Tender, Vertebra tenderness - Extremities General upper extremity: Normal inspection, Nontender, Normal color, Normal ROM , Normal temperature General lower extremity: Normal inspection, Nontender, Normal color, Normal ROM , Normal temperature, Normal weight bearing. No: Lisa's sign - Neurological Neuro grossly intact: Yes Cognition: Normal Orientation: AAOx4 [place] Coma Scale Eye Opening: Spontaneous Samira Coma Scale Verbal: Oriented [place] Coma Scale Motor: Obeys Commands [place] Coma Scale Total: 15 Speech: Normal Motor strength normal: LUE, RUE, LLE, RLE Sensory: Normal - Psychological Associated symptoms: Normal affect, Normal mood - Skin Skin Temperature: Warm Skin Moisture: Dry Skin Color: Normal Course - Re-evaluation Re-evalutation: Workup initiated on protocol. Reviewed. EKG normal and unremarkable. Chest x- ray normal and unremarkable. Lab workup normal and unremarkable. Patient is not . On examination patient has reproducible pain over the areas of tenderness over the chest wall, she is actually quite sore. She denies any injury, she does report occasional cough. Unremarkable respiratory exam. Treating for chest wall pain. Discussed follow-up, return precautions. Patient states understanding and agreement. - Vital Signs Vital signs: Temp Pulse Resp BP Pulse Ox 98 F 63 16 118/73 99 10/07/16 03:39 10/07/16 03:39 10/07/16 03:39 10/07/16 03:39 10/07/16 03:39 - Laboratory Result Diagrams: 10/07/16 02:54 10/07/16 02:54 Discharge - Discharge Clinical Impression: Chest wall pain Chest pain Qualifiers: Chest pain type: unspecified Qualified Code(s): R07.9 - Chest pain, unspecified Condition: Stable Disposition: HOME, SELF-CARE Additional Instructions: Your workup shows no concerning abnormalities. Examination and symptoms consistent with chest wall pain. Apply heat to the area, take prescribed medications, hydrate, avoid lifting if possible. Follow-up with primary care. Stop smoking. Return to emergency department for any concerning or worsening symptoms. Prescriptions: Cyclobenzaprine HCl [Flexeril 5 mg Tablet] 1 - 2 tab PO TID PRN #15 tablet PRN Reason: Naproxen 500 mg PO BID #20 tablet Referrals: HARMONY ASH FNP [Primary Care Provider] - Follow up as needed
--- NOTE | 2016-10-07 04:43 | RADIOLOGY REPORT (SQ) ---
EXAM DESCRIPTION: CHEST SINGLE VIEW COMPLETED DATE/TIME: 10/07/2016 4:26 am REASON FOR STUDY: CP COMPARISON: 03/27/2016 EXAM PARAMETERS: NUMBER OF VIEWS: One view. TECHNIQUE: Single frontal radiographic view of the chest acquired. RADIATION DOSE: NA LIMITATIONS: None. FINDINGS: LUNGS AND PLEURA: No opacities, masses or pneumothorax. No pleural effusion. MEDIASTINUM AND HILAR STRUCTURES: No masses. Contour normal. HEART AND VASCULAR STRUCTURES: Heart normal in size. Normal vasculature. BONES: No acute findings. Mild levo convexity. HARDWARE: None in the chest. OTHER: No other significant finding. IMPRESSION: NO ACUTE RADIOGRAPHIC FINDING IN THE CHEST. TECHNICAL DOCUMENTATION: JOB ID: [id number]
[2016-10-07] MEDS ORDERED: CYCLOBENZAPRINE HCL 10 MG TABLET PO ONE (05:00)
[2016-10-07 05:35] VITALS: BP 118/73
--- NOTE | 2016-10-07 08:09 | EKG REPORT ---
SEVERITY:- BORDERLINE ECG - SINUS ARRHYTHMIA, RATE 64-90 BORDERLINE T ABNORMALITIES, ANTERIOR LEADS : Confirmed by: Huang Hill MD 07-Oct-2016 08:08:49
== END 2016-10-07 05:21 | disposition home or self-care (01) ==
LOC: ER 23:51
DX: R07.89 Other chest pain (principal); R05 Cough; F17.200 Nicotine dependence, unspecified, uncomplicated; Z71.6 Tobacco abuse counseling; Z88.0 Allergy status to penicillin; Z88.5 Allergy status to narcotic agent
CPT/HCPCS: 93005; 99285; 36415; 82553; 82550; 85025; 81025; 80053; 84484; 71010; 93010; J3490

== ENCOUNTER 2016-10-28 16:48 | Emergency (ER) | payer MEDICAID ==
--- NOTE | 2016-10-28 17:11 | ER Document Report ---
ED General - General Chief Complaint: Headache Stated Complaint: HEADACHES Time Seen by Provider: 10/28/16 17:09 Information source: Patient Notes: Patient states she has had a left frontal headache for 3 days. She states she had nausea and vomiting as well. She denies any diarrhea. She states she is also concerned that she may be . Patient states that she occasionally gets headaches but does not have a history of migraines. She states she did have a CT scan several years ago that was normal. She states the pain is constant and moderate to severe. It does not radiate. Nothing makes it better or worse. It is a throbbing sensation. TRAVEL OUTSIDE OF THE [place] IN LAST 30 DAYS: No - Related Data Allergies/Adverse Reactions: Penicillins Allergy (Verified 10/28/16 16:54) tramadol Allergy (Verified 10/28/16 16:54) Past Medical History - General Information source: Patient - Social History Smoking Status: Current Every Day Smoker Chew tobacco use (# tins/day): No Frequency of alcohol use: None Drug Abuse: None Family History: Malignancy, Other - Sister was diagnosed and treated for spinal meningitis about 3 months ago.. denies: Arthritis, CAD, CVA, DM, Hyperlipidemia , Hypertension, Thyroid Disfunction Pulmonary Medical History: Denies: Hx Tuberculosis Neurological Medical History: Denies: Hx Seizures Renal/ Medical History: Denies: Hx Peritoneal Dialysis GI Medical History: Denies: Hx Gastroesophageal Reflux Disease Musculoskeltal Medical History: Reports Hx Arthritis - Chronic knee pain, Reports Hx Musculoskeletal Deformity, Reports Hx Musculoskeletal Trauma Psychiatric Medical History: Reports: Hx Attention Deficit Hyperactivity Disorder Past Surgical History: Reports: Hx Cholecystectomy - Had ERCP the next day for stones in the duct. Apparently may have had more. No report of ulcer. Denies : Hx Section, Hx Hysterectomy - Immunizations Immunizations up to date: Yes Hx Diphtheria, Pertussis, Tetanus Vaccination: Yes - 2013 Review of Systems - Review of Systems Constitutional: denies: Chills, Fever Cardiovascular: denies: Chest pain, Palpitations Respiratory: denies: Cough, Short of breath -: Yes All other systems reviewed and negative Physical Exam - Vital signs Vitals: Temp Pulse Resp BP Pulse Ox 98.5 F 85 16 115/60 98 10/28/16 16:54 10/28/16 16:54 10/28/16 16:54 10/28/16 16:54 10/28/16 16:54 Interpretation: Normal - General General appearance: Appears well, Alert - HEENT Head: Normocephalic, Atraumatic Eyes: Normal Pupils: PERRL - Respiratory Respiratory status: No respiratory distress Chest status: Nontender Breath sounds: Normal Chest palpation: Normal - Cardiovascular Rhythm: Regular Heart sounds: Normal auscultation Murmur: No - Abdominal Inspection: Normal Distension: No distension Bowel sounds: Normal Tenderness: Nontender Organomegaly: No organomegaly - Back Back: Normal, Nontender - Extremities General upper extremity: Normal inspection, Nontender, Normal color, Normal ROM , Normal temperature General lower extremity: Normal inspection, Nontender, Normal color, Normal ROM , Normal temperature, Normal weight bearing. 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 Sensory: Normal - Psychological Associated symptoms: Normal affect, Normal mood - Skin Skin Temperature: Warm Skin Moisture: Dry Skin Color: Normal Course - Vital Signs Vital signs: Temp Pulse Resp BP Pulse Ox 98.5 F 85 16 115/60 98 10/28/16 16:54 10/28/16 16:54 10/28/16 16:54 10/28/16 16:54 10/28/16 16:54 - Laboratory Result Diagrams: 10/28/16 17:30 10/28/16 17:30 Laboratory results interpreted by me: 10/28/16 10/28/16 17:30 17:30 Glucose 113 H Ur Leukocyte Esterase TRACE H Discharge - Discharge Clinical Impression: Headache Condition: Stable Disposition: HOME, SELF-CARE Instructions: Headache ([facility]) Additional Instructions: Please call your primary care physician as soon as possible to arrange follow-up Prescriptions: Butalb/Acetaminophen/Caffeine [Fioricet (50-325-40 mg) Tablet] 1 tab PO Q4HP PRN #30 tab PRN Reason: Referrals: AFUA WYNNE MD [ACTIVE STAFF] - Follow up as needed
[2016-10-28 17:53] LABS: ABSOLUTE EOSINOPHILS # (AUTO) 0.1 10^3/uL (0.0-0.6); ABSOLUTE MONOCYTES (AUTO) 0.5 10^3/uL (0.1-1.4); ABSOLUTE NEUT (AUTO) 5.6 10^3/uL (1.7-8.2); BASOPHILS % (AUTO) 0.6 % (0-2); EOSINOPHILS % (AUTO) 1.4 % (0-6); HEMATOCRIT 41.3 % (36.0-47.0); HEMOGLOBIN 14.2 g/dL (12.0-15.5); HGB HCT DIFFERENCE 1.3; LYMPHOCYTES % (AUTO) 24.1 % (13-45); MEAN CORPUSCULAR HEMOGLOBIN 31.7 pg (27.0-33.4); MEAN CORPUSCULAR HGB CONC 34.3 g/dL (32.0-36.0); MEAN CORPUSCULAR VOLUME 92 fl (80-97); MONOCYTES % (AUTO) 5.8 % (3-13); RED BLOOD COUNT 4.48 10^6/uL (3.72-5.28); RED CELL DISTRIBUTION WIDTH 12.9 % (11.5-14.0); SEGMENTED NEUTROPHILS % (AUTO) 68.1 % (42-78); WHITE BLOOD COUNT 8.1 10^3/uL (4.0-10.5)
[2016-10-28 17:59] LABS: APPEARANCE,URINE SLIGHTLY-CLOUDY; BILIRUBIN,URINE NEGATIVE (NEGATIVE); GLUCOSE, URINE NEGATIVE (NEGATIVE); KETONES,URINE NEGATIVE (NEGATIVE); LEUKOCYTE ESTERASE,URINE TRACE (NEGATIVE); NITRITE,URINE NEGATIVE (NEGATIVE); PROTEIN,URINE NEGATIVE (NEGATIVE); URINE SPECIFIC GRAVITY 1.024; UROBILINOGEN,URINE NEGATIVE mg/dL (<2.0)
[2016-10-28 18:17] LABS: ALANINE AMINOTRANSFERASE 26 U/L (9-52); ALBUMIN 4.5 g/dL (3.5-5.0); ALKALINE PHOSPHATASE 75 U/L (38-126); ANION GAP 13 (5-19); ASPARTATE AMINO TRANSFERASE 18 U/L (14-36); BILIRUBIN,DIRECT 0.3 mg/dL (0.0-0.4); BILIRUBIN,TOTAL 0.5 mg/dL (0.2-1.3); BLOOD UREA NITROGEN 15 mg/dL (7-20); CALCIUM 9.3 mg/dL (8.4-10.2); CARBON DIOXIDE 25 mmol/L (22-30); CHLORIDE 103 mmol/L (98-107); CREATININE RESULT 0.86 mg/dL (0.52-1.25); GLUCOSE 113 mg/dL (75-110); POTASSIUM 4.2 mmol/L (3.6-5.0); SODIUM 140.8 mmol/L (137-145); TOTAL PROTEIN 7.5 g/dL (6.3-8.2)
[2016-10-28 18:46] VITALS: BP 109/68
== END 2016-10-28 18:46 | disposition home or self-care (01) ==
LOC: ER 16:48
DX: R51 Headache (principal); R11.2 Nausea with vomiting, unspecified; F17.200 Nicotine dependence, unspecified, uncomplicated; Z88.0 Allergy status to penicillin; Z88.5 Allergy status to narcotic agent; Z90.49 Acquired absence of other specified parts of digestive tract
CPT/HCPCS: 36415; 80053; 81001; 84702; 85025; 99284

== ENCOUNTER 2016-11-04 00:56 | Emergency (ER) | payer MEDICAID ==
[2016-11-04] MEDS ORDERED: SULFAMETHOXAZOLE/TRIMETHOPRIM 800-160 MG TABLET PO ONE (01:52)
[2016-11-04] MEDS ORDERED: OXYCODONE-ACETAMINOPHEN 5-325 MG TABLET PO ONE (01:52)
[2016-11-04] MEDS ORDERED: LIDOCAINE 1% INJ-PF (10 MG/ML) 30 ML SDV ONE (02:04)
[2016-11-04] MEDS ORDERED: HYDROCODONE/ACETAMINOPHEN 5-325 MG 6 TAB/DSPK PO PRN (03:27)
--- NOTE | 2016-11-04 03:27 | ER Document Report ---
ED Skin Rash/Insect Bite/Abscs - General Chief Complaint: Spider bite L thigh Stated Complaint: INSECT BITE Time Seen by Provider: 11/04/16 01:40 TRAVEL OUTSIDE OF THE [place] IN LAST 30 DAYS: No - HPI Patient complains to provider of: Tender/swollen area Onset: Yesterday Onset/Duration: Gradual Quality of pain: Achy Skin Character: Abscess - left inner thigh Skin Temperature: Warm Quality of rash: Painful Identify cause: No - Related Data Allergies/Adverse Reactions: Penicillins Allergy (Verified 10/28/16 16:54) tramadol Allergy (Verified 10/28/16 16:54) Past Medical History - Social History Smoking Status: Current Every Day Smoker Family History: Malignancy, Other - Sister was diagnosed and treated for spinal meningitis about 3 months ago.. denies: Arthritis, CAD, CVA, DM, Hyperlipidemia , Hypertension, Thyroid Disfunction Pulmonary Medical History: Denies: Hx Tuberculosis Neurological Medical History: Denies: Hx Seizures Renal/ Medical History: Denies: Hx Peritoneal Dialysis GI Medical History: Denies: Hx Gastroesophageal Reflux Disease Musculoskeltal Medical History: Reports Hx Arthritis - Chronic knee pain, Reports Hx Musculoskeletal Deformity, Reports Hx Musculoskeletal Trauma Psychiatric Medical History: Reports: Hx Attention Deficit Hyperactivity Disorder Past Surgical History: Reports: Hx Cholecystectomy - Had ERCP the next day for stones in the duct. Apparently may have had more. No report of ulcer. Denies : Hx Section, Hx Hysterectomy - Immunizations Immunizations up to date: Yes Hx Diphtheria, Pertussis, Tetanus Vaccination: Yes - 2013 Review of Systems - Review of Systems Constitutional: No symptoms reported Skin: See HPI -: Yes All other systems reviewed and negative Physical Exam - General General appearance: Appears well, Alert In distress: None - Cardiovascular Pulses: Normal: Femoral Normal capillary refill: Yes - Extremities General lower extremity: Tender - at abscess site, Normal color, Normal ROM, Normal strength, Normal temperature, Normal weight bearing - Skin Skin irregularity: Abscess Location of irregularity: Other - left groin Irregularity with: Swelling, Tenderness, Induration Course - Re-evaluation Re-evalutation: 11/04/16 07:14 Patient is a 25-year-old femal is hemodynamic stable, no acute distress and afebrile. Underwent an I&D at the bedside for 30 cc of purulent material removed from the abscess. Packing was placed. Patient initiated on antibiotics.e patient given strict return precautions otherwise stable for discharge home. Procedures - Incision and Drainage Left Groin Type: Simple Anesthetic type: 1% Lidocaine mL's of anesthetic: 3 I&D procedure: Betadine prep applied Incision Method: Incision made by scalpel Amount/type of drainage: 3cc purulent material Female anatomy: 1 - 3cm Discharge - Discharge Clinical Impression: Abscess Condition: Good Disposition: HOME, SELF-CARE Instructions: Abscess ([facility]), Post Incision and Drainage, Trimethoprim-Sulfa ( [facility]) Prescriptions: Sulfamethoxazole/Trimethoprim [Bactrim Ds Tablet] 1 each PO BID #10 tablet Referrals: DWAYNE PIERRE MD [COMMUNITY BASED STAFF] - Follow up as needed
== END 2016-11-04 03:42 | disposition home or self-care (01) ==
LOC: ER 00:56
PROC: 0H9JXZZ Drainage of Left Upper Leg Skin, External Approach (ICD-10-PCS; principal; 2016-11-04)
DX: L02.416 Cutaneous abscess of left lower limb (principal); F17.200 Nicotine dependence, unspecified, uncomplicated
CPT/HCPCS: 10060; 99281; J3490

== ENCOUNTER 2016-11-17 22:44 | Emergency (ER) | payer MEDICAID ==
[2016-11-17] MEDS ORDERED: ONDANSETRON 4 MG TAB.RAPDIS PO ONE (23:02)
[2016-11-17 23:55] LABS: APPEARANCE,URINE SLIGHTLY-CLOUDY; BILIRUBIN,URINE NEGATIVE (NEGATIVE); GLUCOSE, URINE NEGATIVE (NEGATIVE); KETONES,URINE NEGATIVE (NEGATIVE); LEUKOCYTE ESTERASE,URINE TRACE (NEGATIVE); NITRITE,URINE NEGATIVE (NEGATIVE); PROTEIN,URINE NEGATIVE (NEGATIVE)
[2016-11-18 00:03] LABS: ALANINE AMINOTRANSFERASE 24 U/L (9-52); ALKALINE PHOSPHATASE 79 U/L (38-126); ANION GAP 12 (5-19); ASPARTATE AMINO TRANSFERASE 18 U/L (14-36); BILIRUBIN,DIRECT 0.3 mg/dL (0.0-0.4); BILIRUBIN,TOTAL 0.4 mg/dL (0.2-1.3); BLOOD UREA NITROGEN 13 mg/dL (7-20); CALCIUM 9.4 mg/dL (8.4-10.2); CARBON DIOXIDE 24 mmol/L (22-30); CHLORIDE 107 mmol/L (98-107); CREATININE RESULT 0.73 mg/dL (0.52-1.25); GLUCOSE 83 mg/dL (75-110); LIPASE 85.3 U/L (23-300); POTASSIUM 3.7 mmol/L (3.6-5.0); SODIUM 142.8 mmol/L (137-145); TOTAL PROTEIN 6.9 g/dL (6.3-8.2)
[2016-11-18] MEDS ORDERED: ONDANSETRON ODT 4 MG TAB (6 TAB/DSPK) PO PRN (00:54)
--- NOTE | 2016-11-18 00:55 | ER Document Report ---
ED General - General Chief Complaint: Abdominal Pain Stated Complaint: ABDOMINAL PAIN Time Seen by Provider: 11/17/16 23:01 Notes: Patient is a 25-year-old female without past medical history who presents with 4 days of intermittent nausea and vomiting as well as associated abdominal cramping. Describes her symptoms as an intermittent, cramping, diffuse abdominal pain. Denies any localization of the pain. Nothing improves or worsens her symptoms. States she has had similar symptoms in the past when she was and is concerned that she may be again today. Denies any vaginal bleeding or discharge. She has been able to tolerate oral intake but does note several episodes of nonbilious emesis. She has not seen her primary care doctor regarding today's concerns TRAVEL OUTSIDE OF THE [place] IN LAST 30 DAYS: No - Related Data Allergies/Adverse Reactions: Penicillins Allergy (Verified 10/28/16 16:54) tramadol Allergy (Verified 10/28/16 16:54) Past Medical History - General Information source: Patient - Social History Smoking Status: Never Smoker Frequency of alcohol use: None Drug Abuse: None Lives with: Spouse/Significant other Family History: Malignancy, Other - Sister was diagnosed and treated for spinal meningitis about 3 months ago.. denies: Arthritis, CAD, CVA, DM, Hyperlipidemia , Hypertension, Thyroid Disfunction Patient has suicidal ideation: No Patient has homicidal ideation: No Pulmonary Medical History: Denies: Hx Tuberculosis Neurological Medical History: Denies: Hx Seizures Renal/ Medical History: Denies: Hx Peritoneal Dialysis GI Medical History: Denies: Hx Gastroesophageal Reflux Disease Musculoskeltal Medical History: Reports Hx Arthritis - Chronic knee pain, Reports Hx Musculoskeletal Deformity, Reports Hx Musculoskeletal Trauma Psychiatric Medical History: Reports: Hx Attention Deficit Hyperactivity Disorder Past Surgical History: Reports: Hx Cholecystectomy - Had ERCP the next day for stones in the duct. Apparently may have had more. No report of ulcer. Denies : Hx Section, Hx Hysterectomy - Immunizations Immunizations up to date: Yes Hx Diphtheria, Pertussis, Tetanus Vaccination: Yes - 2013 Review of Systems - Review of Systems Notes: Constitutional: Negative for fever. HENT: Negative for sore throat. Eyes: Negative for visual changes. Cardiovascular: Negative for chest pain. Respiratory: Negative for shortness of breath. Gastrointestinal: Positive for abdominal pain and vomiting Genitourinary: Negative for dysuria. Musculoskeletal: Negative for back pain. Skin: Negative for rash. Neurological: Negative for headaches, weakness or numbness. 10 point ROS negative except as marked above and in HPI. Physical Exam - Vital signs Vitals: Temp Pulse Resp BP Pulse Ox 98.1 F 77 16 119/59 L 95 11/17/16 22:53 11/17/16 22:53 11/17/16 22:53 11/17/16 22:53 11/17/16 22:53 Interpretation: Normal Notes: PHYSICAL EXAMINATION: GENERAL: Well-appearing, well-nourished and in no acute distress. HEAD: Atraumatic, normocephalic. EYES: Pupils equal round and reactive to light, extraocular movements intact, sclera anicteric, conjunctiva are normal. ENT: nares patent, oropharynx clear without exudates. Moist mucous membranes. NECK: Normal range of motion, supple without lymphadenopathy LUNGS: Breath sounds clear to auscultation bilaterally and equal. No wheezes rales or rhonchi. HEART: Regular rate and rhythm without murmurs ABDOMEN: Soft, nontender, normoactive bowel sounds. No guarding, no rebound. No masses appreciated. EXTREMITIES: Normal range of motion, no pitting or edema. No cyanosis. NEUROLOGICAL: No focal neurological deficits. Moves all extremities spontaneously and on command. PSYCH: Normal mood, normal affect. SKIN: Warm, Dry, normal turgor, no rashes or lesions noted. Course - Re-evaluation Re-evalutation: 11/18/16 01:51 Patient presents with a primary concern that she may be . She reports intermittent episodes of nausea and vomiting for the last several days but has been able to tolerate oral intake without difficulty. On exam she is well in appearance, laughing and joking with her significant other at the bedside. She has no focal abdominal tenderness whatsoever on examination. No rebound or guarding. She has tolerated oral intake and is actually drinking a Pepsi when I walk into the room. Vitals are within normal limits. Labs are unremarkable. Based on exam and history do not suspect an acute biliary pathology, pancreatitis, bowel obstruction, mesenteric ischemia, volvulus, ovarian torsion , tubo-ovarian abscess, or acute appendicitis. At this time will discharge with return precautions and follow-up recommendations. Verbal discharge instructions given a the bedside and opportunity for questions given. Medication warnings reviewed. Patient is in agreement with this plan and has verbalized understanding of return precautions and the need for primary care follow-up in the next 24-72 hours. - Vital Signs Vital signs: Temp Pulse Resp BP Pulse Ox 97.4 F 66 16 119/54 L 100 11/18/16 01:24 11/18/16 01:24 11/17/16 22:53 11/18/16 01:24 11/18/16 01:24 - Laboratory Result Diagrams: 11/17/16 23:20 Laboratory results interpreted by me: 11/17/16 23:35 Urine Urobilinogen 2.0 H Ur Leukocyte Esterase TRACE H Discharge - Discharge Clinical Impression: Abdominal cramping Vomiting Qualifiers: Vomiting type: unspecified Vomiting Intractability: non-intractable Nausea presence: with nausea Qualified Code(s): R11.2 - Nausea with vomiting, unspecified Condition: Good Disposition: HOME, SELF-CARE Additional Instructions: You have been seen in the Emergency Department (ED) for abdominal pain. Your evaluation did not identify a clear cause of your symptoms but was generally reassuring. Please follow up with your doctor as soon as possible regarding today's emergent visit and the symptoms that are bothering you. Return to the ED if your abdominal pain worsens or fails to improve, you develop bloody vomiting, bloody diarrhea, you are unable to tolerate fluids due to vomiting, fever greater than 101, or other symptoms that concern you.
[2016-11-18 01:26] VITALS: BP 119/54
== END 2016-11-18 01:26 | disposition home or self-care (01) ==
LOC: ER 22:44
DX: R10.9 Unspecified abdominal pain (principal); R11.2 Nausea with vomiting, unspecified; Z90.49 Acquired absence of other specified parts of digestive tract; Z88.0 Allergy status to penicillin
CPT/HCPCS: 99284; 36415; 83690; 84703; 80053; 81001; S0119

== ENCOUNTER 2016-11-23 18:11 | Emergency (ER) | payer MEDICAID ==
[2016-11-23] MEDS ORDERED: ACETAMINOPHEN 325 MG TABLET PO ONE (18:36)
--- NOTE | 2016-11-23 18:37 | ER Document Report ---
HPI - HPI Patient complains to provider of: Right hand injury Onset: This afternoon Onset/Duration: Sudden Quality of pain: Sharp Pain Level: 5 Context: Patient states that she was holding up a board for her father who was using a hammer. Patient states that he slipped and hit her right hand with a hammer. Patient complains of right hand pain and swelling. Patient is left-hand dominant. Associated Symptoms: Other - Right hand injury Exacerbated by: Movement Relieved by: Denies Similar symptoms previously: No Recently seen / treated by doctor: No - ROS ROS below otherwise negative: Yes Systems Reviewed and Negative: Yes All other systems reviewed and negative - CONSTITUTIONAL Constitutional: DENIES: Fever - NEURO Neurology: DENIES: Weakness - REPRODUCTIVE Reproductive: DENIES: : - MUSCULOSKELETAL Musculoskeletal: REPORTS: Extremity pain, Swelling - DERM Skin Color: Normal Skin Problems: None Past Medical History - General Information source: Patient - Social History Smoking Status: Current Every Day Smoker Drug Abuse: None 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 denies: Arthritis, CAD, CVA, DM, Hyperlipidemia , Hypertension, Thyroid Disfunction Pulmonary Medical History: Denies: Hx Tuberculosis Neurological Medical History: Denies: Hx Seizures Renal/ Medical History: Denies: Hx Peritoneal Dialysis GI Medical History: Denies: Hx Gastroesophageal Reflux Disease Musculoskeltal Medical History: Reports Hx Arthritis - Chronic knee pain, Reports Hx Musculoskeletal Deformity, Reports Hx Musculoskeletal Trauma Psychiatric Medical History: Reports: Hx Attention Deficit Hyperactivity Disorder Past Surgical History: Reports: Hx Cholecystectomy - Had ERCP the next day for stones in the duct. Apparently may have had more. No report of ulcer - Immunizations Immunizations up to date: Yes Hx Diphtheria, Pertussis, Tetanus Vaccination: Yes - 2013 Vertical Provider Document - CONSTITUTIONAL Agree With Documented VS: Yes Exam Limitations: No Limitations General Appearance: WD/WN, No Apparent Distress - INFECTION CONTROL TRAVEL OUTSIDE OF THE [place] IN LAST 30 DAYS: No - HEENT HEENT: Atraumatic, Normocephalic - NECK Neck: Normal Inspection - RESPIRATORY Respiratory: No Respiratory Distress - CARDIOVASCULAR Pulses: Normal: Radial - MUSCULOSKELETAL/EXTREMETIES Musculoskeletal/Extremeties: MAEW, Tender - Right hand tenderness over fifth metacarpal with mild swelling - NEURO Level of Consciousness: Awake, Alert, Appropriate Motor/Sensory: No Motor Deficit - DERM Integumentary: Warm, Dry, No Rash Course - Re-evaluation Re-evalutation: 11/23/16 19:45 Patient additionally denied taking any prescription medications at home. Review of patient's medication list that have been created after using her insurance list that patient has been taking oxymorphone 15 mg ER. Patient had this prescription filled on 11/06/2016 for 30 day supply. Patient advised that she should take her usual pain medications at home to manage her pain from her hand fracture. Patient states that she ran out of pain medication but that she sees her primary doctor tomorrow who refills her pain medicines. - Diagnostic Test Radiology reviewed: Image reviewed, Reports reviewed Procedures - Immobilization Right Hand Pre-Proc Neuro Vasc Exam: Normal Immobilizer type: Ulnar Performed by: PCT Post-Proc Neuro Vasc Exam: Normal Alignment checked and good: Yes Discharge - Discharge Clinical Impression: Closed fracture of 5th metacarpal Qualifiers: Encounter type: initial encounter Metacarpal location: unspecified portion of metacarpal Fracture alignment: displaced Laterality: right Qualified Code(s): S62.306A - Unspecified fracture of fifth metacarpal bone, right hand, initial encounter for closed fracture Condition: Stable Disposition: HOME, SELF-CARE Instructions: Fractured Fifth Metacarpal ([facility]), Ice & Elevation ([facility]), Splint Precautions ([facility]) Additional Instructions: Return immediately for any new or worsening symptoms Followup with your primary care provider, call tomorrow to make a followup appointment Follow-up with orthopedic doctor, call tomorrow for an appointment Take your pain medication that you have at home as prescribed Forms: Return to Work Referrals: [facility] ([facility] [Provider Group] - Follow up tomorrow
[2016-11-23] MEDS ORDERED: ACETAMINOPHEN 325 MG TABLET ONE (18:53)
--- NOTE | 2016-11-23 19:18 | RADIOLOGY REPORT (SQ) ---
EXAM DESCRIPTION: HAND RIGHT 3 VIEWS COMPLETED DATE/TIME: 11/23/2016 7:09 pm REASON FOR STUDY: hammer struck r 5th [facility] COMPARISON: None. EXAM PARAMETERS: NUMBER OF VIEWS: Three views. TECHNIQUE: AP, lateral and oblique radiographic images acquired of the right hand. LIMITATIONS: None. FINDINGS: MINERALIZATION: Normal. BONES: Boxer's fracture 5th metacarpal. JOINTS: No effusions. SOFT TISSUES: No soft tissue swelling. No foreign body. OTHER: No other significant finding. IMPRESSION: Boxer's fracture 5th metacarpal. TECHNICAL DOCUMENTATION: JOB ID: [id number]- All Rights Reserved
[2016-11-23 20:29] VITALS: BP 132/70
== END 2016-11-23 20:07 | disposition home or self-care (01) ==
LOC: ER 18:11
PROC: 2W3CX1Z Immobilization of Right Lower Arm using Splint (ICD-10-PCS; principal; 2016-11-23)
DX: S62.306A Unspecified fracture of fifth metacarpal bone, right hand, initial encounter for closed fracture (principal); W22.8XXA Striking against or struck by other objects, initial encounter; Y93.H3 Activity, building and construction; F17.200 Nicotine dependence, unspecified, uncomplicated; Z90.49 Acquired absence of other specified parts of digestive tract
CPT/HCPCS: 99283; 73130; 29125; J3490

== ENCOUNTER 2016-11-30 01:05 | Emergency (ER) | payer MEDICAID ==
--- NOTE | 2016-11-30 01:59 | ER Document Report ---
ED Medical Screen (RME) - General Chief Complaint: Vaginal Bleeding Stated Complaint: VAGINAL BLEEDING AND CRAMPING Time Seen by Provider: 11/30/16 01:57 Notes: 25-year-old female, chief complaint of heavy vaginal bleeding and pelvic pain on both sides of her lower abdomen since earlier today. Reports mild nausea. Denies vomiting, fever, vaginal discharge, concerned about exposure to any STDs. Only past medical history is cholecystectomy. She already had a menstrual cycle earlier this month. She is not on any contraceptive. TRAVEL OUTSIDE OF THE [place] IN LAST 30 DAYS: No - Related Data Allergies/Adverse Reactions: Penicillins Allergy (Verified 10/28/16 16:54) tramadol Allergy (Verified 10/28/16 16:54) Past Medical History Pulmonary Medical History: Denies: Hx Tuberculosis Neurological Medical History: Denies: Hx Seizures Renal/ Medical History: Denies: Hx Peritoneal Dialysis GI Medical History: Denies: Hx Gastroesophageal Reflux Disease Musculoskeltal Medical History: Reports Hx Arthritis - Chronic knee pain, Reports Hx Musculoskeletal Deformity, Reports Hx Musculoskeletal Trauma Psychiatric Medical History: Reports: Hx Attention Deficit Hyperactivity Disorder Past Surgical History: Reports: Hx Cholecystectomy - Had ERCP the next day for stones in the duct. Apparently may have had more. No report of ulcer. Denies : Hx Section, Hx Hysterectomy - Immunizations Immunizations up to date: Yes Hx Diphtheria, Pertussis, Tetanus Vaccination: Yes - 2013 Physical Exam - Vital signs Vitals: Temp Pulse Resp BP Pulse Ox 97.9 F 77 12 116/63 100 11/30/16 01:36 11/30/16 01:36 11/30/16 01:36 11/30/16 01:36 11/30/16 01:36 - General General appearance: Appears well In distress: None - Abdominal Inspection: Normal Tenderness: Nontender Course - Vital Signs Vital signs: Temp Pulse Resp BP Pulse Ox 97.9 F 77 12 116/63 100 11/30/16 01:36 11/30/16 01:36 11/30/16 01:36 11/30/16 01:36 11/30/16 01:36
[2016-11-30 03:05] LABS: ALANINE AMINOTRANSFERASE 25 U/L (9-52); ALBUMIN 3.9 g/dL (3.5-5.0); ALKALINE PHOSPHATASE 88 U/L (38-126); ANION GAP 12 (5-19); ASPARTATE AMINO TRANSFERASE 20 U/L (14-36); BILIRUBIN,DIRECT 0.3 mg/dL (0.0-0.4); BILIRUBIN,TOTAL 0.4 mg/dL (0.2-1.3); BLOOD UREA NITROGEN 15 mg/dL (7-20); CALCIUM 9.5 mg/dL (8.4-10.2); CARBON DIOXIDE 25 mmol/L (22-30); CHLORIDE 106 mmol/L (98-107); CREATININE RESULT 0.79 mg/dL (0.52-1.25); GLUCOSE 100 mg/dL (75-110); SODIUM 143.2 mmol/L (137-145); TOTAL PROTEIN 6.6 g/dL (6.3-8.2)
[2016-11-30 03:08] LABS: ABSOLUTE BASOPHILS # (AUTO) 0.1 10^3/uL (0.0-0.2); ABSOLUTE EOSINOPHILS # (AUTO) 0.2 10^3/uL (0.0-0.6); ABSOLUTE LYMPHOCYTES (AUTO) 2.7 10^3/uL (0.5-4.7); ABSOLUTE MONOCYTES (AUTO) 0.6 10^3/uL (0.1-1.4); ABSOLUTE NEUT (AUTO) 6.5 10^3/uL (1.7-8.2); BASOPHILS % (AUTO) 0.5 % (0-2); EOSINOPHILS % (AUTO) 1.9 % (0-6); HEMATOCRIT 38.7 % (36.0-47.0); HEMOGLOBIN 13.4 g/dL (12.0-15.5); HGB HCT DIFFERENCE 1.5; LYMPHOCYTES % (AUTO) 26.9 % (13-45); MEAN CORPUSCULAR HGB CONC 34.7 g/dL (32.0-36.0); MEAN CORPUSCULAR VOLUME 92 fl (80-97); MONOCYTES % (AUTO) 5.9 % (3-13); RED CELL DISTRIBUTION WIDTH 12.9 % (11.5-14.0); SEGMENTED NEUTROPHILS % (AUTO) 64.8 % (42-78); WHITE BLOOD COUNT 10.1 10^3/uL (4.0-10.5)
[2016-11-30 03:14] LABS: AMORPHOUS SEDIMENT,URINE TRACE /HPF; APPEARANCE,URINE SLIGHTLY-CLOUDY; BILIRUBIN,URINE NEGATIVE (NEGATIVE); GLUCOSE, URINE NEGATIVE (NEGATIVE); KETONES,URINE NEGATIVE (NEGATIVE); LEUKOCYTE ESTERASE,URINE NEGATIVE (NEGATIVE); NITRITE,URINE NEGATIVE (NEGATIVE); PROTEIN,URINE NEGATIVE (NEGATIVE); URINE SPECIFIC GRAVITY 1.017; UROBILINOGEN,URINE NEGATIVE mg/dL (<2.0)
--- NOTE | 2016-11-30 04:18 | ER Document Report ---
ED GI/ - General Chief Complaint: Vaginal Bleeding Stated Complaint: VAGINAL BLEEDING AND CRAMPING Time Seen by Provider: 11/30/16 01:57 Notes: Patient is a 25-year-old female with a chief complaint of heavy vaginal bleeding and pelvic pain on both sides of her lower abdomen since earlier today. Reports mild nausea. Denies vomiting, fever, vaginal discharge, concerned about exposure to any STDs. Only past medical history is cholecystectomy. She already had a menstrual cycle earlier this month. She is not on any contraceptive, was previously on Depo. Had a miscarriage a few months ago. TRAVEL OUTSIDE OF THE [place] IN LAST 30 DAYS: No - Related Data Allergies/Adverse Reactions: Penicillins Allergy (Verified 10/28/16 16:54) tramadol Allergy (Verified 10/28/16 16:54) Past Medical History - General Information source: Patient - Social History Smoking Status: Never Smoker Frequency of alcohol use: None Drug Abuse: None Lives with: Family Family History: Malignancy, Other - Sister was diagnosed and treated for spinal meningitis about 3 months ago.. denies: Arthritis, CAD, CVA, DM, Hyperlipidemia , Hypertension, Thyroid Disfunction Patient has suicidal ideation: No Patient has homicidal ideation: No Pulmonary Medical History: Denies: Hx Tuberculosis Neurological Medical History: Denies: Hx Seizures Renal/ Medical History: Denies: Hx Peritoneal Dialysis GI Medical History: Denies: Hx Gastroesophageal Reflux Disease Musculoskeltal Medical History: Reports Hx Arthritis - Chronic knee pain, Reports Hx Musculoskeletal Deformity, Reports Hx Musculoskeletal Trauma Psychiatric Medical History: Reports: Hx Attention Deficit Hyperactivity Disorder Past Surgical History: Reports: Hx Cholecystectomy - Had ERCP the next day for stones in the duct. Apparently may have had more. No report of ulcer. Denies : Hx Section, Hx Hysterectomy - Immunizations Immunizations up to date: Yes Hx Diphtheria, Pertussis, Tetanus Vaccination: Yes - 2013 Review of Systems - Review of Systems Constitutional: No symptoms reported EENT: No symptoms reported Cardiovascular: No symptoms reported Respiratory: No symptoms reported Gastrointestinal: See HPI Genitourinary: See HPI Female Genitourinary: See HPI Musculoskeletal: No symptoms reported Skin: No symptoms reported Hematologic/Lymphatic: No symptoms reported Neurological/Psychological: No symptoms reported Physical Exam - Vital signs Vitals: Temp Pulse Resp BP Pulse Ox 97.9 F 77 12 116/63 100 11/30/16 01:36 11/30/16 01:36 11/30/16 01:36 11/30/16 01:36 11/30/16 01:36 Interpretation: Normal - General General appearance: Appears well, Alert In distress: None - HEENT Head: Normocephalic, Atraumatic Eyes: Normal Pupils: PERRL - Respiratory Respiratory status: No respiratory distress Chest status: Nontender Breath sounds: Normal. No: Decreased air movement, Wheezing Chest palpation: Normal - Cardiovascular Rhythm: Regular. No: Tachycardia Heart sounds: Normal auscultation, S1 appreciated, S2 appreciated Murmur: No - Abdominal Inspection: Normal Distension: No distension Bowel sounds: Normal Tenderness: Nontender. No: Tender, Guarding Organomegaly: No organomegaly - Back Back: Normal, Nontender. No: Tender, CVA tenderness - Extremities General upper extremity: Normal inspection, Nontender, Normal color, Normal ROM , Normal temperature General lower extremity: Normal inspection, Nontender, Normal color, Normal ROM , Normal temperature, Normal weight bearing. No: Lisa's sign - Neurological Neuro grossly intact: Yes Cognition: Normal Orientation: AAOx4 Samira Coma Scale Eye Opening: Spontaneous [place] Coma Scale Verbal: Oriented [place] Coma Scale Motor: Obeys Commands [place] Coma Scale Total: 15 Speech: Normal Motor strength normal: LUE, RUE, LLE, RLE Sensory: Normal - Psychological Associated symptoms: Normal affect, Normal mood - Skin Skin Temperature: Warm Skin Moisture: Dry Skin Color: Normal Course - Re-evaluation Re-evalutation: Patient is very well-appearing, alert. Abdomen is soft, I do not appreciate any tenderness. CBC, chemistry, urinalysis are unremarkable. HCG is negative. Ultrasound shows no acute abnormalities or chronic abnormalities. I recommended a pelvic examination with patient, she declined. I discussed potentially using hormones to decrease bleeding, she states she is Ed[place] started to decrease bleeding. Most likely hormonal because of dysfunctional uterine bleeding, especially with her recent miscarriage. No hypotension, tachycardia, fever, or concerning findings. Patient states she is ready to leave, asks for symptom management. Patient was given Toradol here, given a prescription of some Toradol to use at home if needed, she states she will follow-up with primary care and return for any concerning symptoms. - Vital Signs Vital signs: Temp Pulse Resp BP Pulse Ox 98.3 F 72 16 108/65 93 11/30/16 04:54 11/30/16 04:54 11/30/16 04:54 11/30/16 04:54 11/30/16 04:54 - Laboratory Result Diagrams: 11/30/16 02:35 11/30/16 02:35 Laboratory results interpreted by me: 11/30/16 02:35 Urine Blood LARGE H Discharge - Discharge Clinical Impression: Menorrhagia Qualifiers: Menorrahagia type: with irregular cycle Qualified Code(s): N92.1 - Excessive and frequent menstruation with irregular cycle Condition: Stable Disposition: HOME, SELF-CARE Additional Instructions: Your ultrasound and workup did not show any concerning abnormalities. The exact cause of your bleeding is uncertain. This is called dysfunctional uterine bleeding. See additional instructions below. I recommend using the Toradol as prescribed if needed for cramping and pain. Follow-up with HISTOLOGIST TECHNOLOGIST referral. Return to the emergency department for any concerning or worsening symptoms including severe/heavy bleeding, dizziness, passing out, severe pain, or any other concerning symptoms. Dysfunctional Uterine Bleeding You're having an abnormal pattern of bleeding from the uterus. We call this dysfunctional uterine bleeding. It is most often caused by a hormone imbalance. Most often this is temporary and no cause is found. There's no evidence of , tumors, or infection as a cause. Dysfunctional uterine bleeding is especially common at times when the normal menstrual cycle is disturbed -- whether by recent , use of control pills or hormones, or impending menopause. Some medical problems lead to dysfunctional bleeding, such as obesity or being very underweight, stress, or thyroid problems. In many cases, the menstrual cycle will return to normal without any treatment. Where the bleeding is significant, high-dose estrogen will usually stop the bleeding within a day of two. A cycle or two of hormones ( control pills) can help restore the uterus to normal. In some patients where bleeding is severe or resistant to treatment, a D&C is required. A endometrial biopsy (a sample of the inside of the uterus) may be recommended for some older women. This would be done by a gynecology specialist. Treatment for anemia may be required if bleeding is severe. You should rest and avoid intercourse until the bleeding is controlled. Call the doctor or return for re-examination if you feel faint, have increasing pain, or have a major increase in the amount of bleeding. Prescriptions: Ketorolac Tromethamine [Toradol 10 mg Tablet] 10 mg PO Q6HP PRN #15 tablet PRN Reason: Referrals: HARMONY ASH FNP [Primary Care Provider] - Follow up as needed
--- NOTE | 2016-11-30 04:21 | RADIOLOGY REPORT (SQ) ---
EXAM DESCRIPTION: U/S NON OB PEL TV W/DOPPLER COMPLETED DATE/TIME: 11/30/2016 3:19 am REASON FOR STUDY: heavy bleeding, pelvic pain COMPARISON: None. TECHNIQUE: Dynamic and static grayscale images acquired of the pelvis via transvaginal approach and recorded on PACS. Additional selected color Doppler and spectral images recorded. LIMITATIONS: None. FINDINGS: UTERUS: Contour normal. No mass. Nonspecific prominent vascularity of the uterus. ENDOMETRIAL STRIPE: No focal or generalized thickening. No masses. CERVIX: No nabothian cysts. RIGHT OVARY: No abnormal masses. RIGHT OVARY DOPPLER: Normal arterial vascular flow without evidence for torsion. LEFT OVARY: No abnormal masses. LEFT OVARY DOPPLER: Normal arterial vascular flow without evidence for torsion. FREE FLUID: None noted. OTHER: No other significant finding. MEASUREMENTS: UTERUS: 10 cm ENDOMETRIAL STRIPE: 0.5 cm RIGHT OVARY: 2.2 cm LEFT OVARY: 3.6 cm IMPRESSION: NORMAL TRANSVAGINAL PELVIC ULTRASOUND. TECHNICAL DOCUMENTATION: JOB ID: [id number] [employer] [place]- All Rights Reserved
[2016-11-30] MEDS ORDERED: KETOROLAC TROMETHAMINE 60 MG/2 ML SDV IM ONE (04:31)
[2016-11-30 05:51] VITALS: BP 108/65
== END 2016-11-30 04:54 | disposition home or self-care (01) ==
LOC: ER 01:05
DX: N92.1 Excessive and frequent menstruation with irregular cycle (principal); N92.0 Excessive and frequent menstruation with regular cycle; R10.2 Pelvic and perineal pain; R11.0 Nausea; Z87.59 Personal history of other complications of pregnancy, childbirth and the puerperium
CPT/HCPCS: 99284; 96372; 36415; 85025; 81025; 80053; 81001; 76830; 93976; J1885

== ENCOUNTER 2016-12-21 21:21 | Emergency (ER) | payer MEDICAID ==
--- NOTE | 2016-12-22 00:04 | RADIOLOGY REPORT (SQ) ---
EXAM DESCRIPTION: FINGER LEFT COMPLETED DATE/TIME: 12/21/2016 11:55 pm REASON FOR STUDY: crush injury COMPARISON: None. NUMBER OF VIEWS: Three views. TECHNIQUE: AP, lateral, and oblique images acquired of the left fifth finger. LIMITATIONS: None. FINDINGS: MINERALIZATION: Normal. BONES: Fracture is identified involving the distal phalanx of the 5th digit. No other evidence for f racture is seen. SOFT TISSUES: No soft tissue swelling. No foreign body. OTHER: No other significant finding. IMPRESSION: Fracture involving the distal phalanx of the 5th digit. COMMENT: SITE OF TRAUMA/COMPLAINT MARKED/STAMP COMPLETED: Yes TECHNICAL DOCUMENTATION: JOB ID: [id number] [employer]- All Rights Reserved
[2016-12-22] MEDS ORDERED: IBUPROFEN 800 MG TABLET PO ONE (01:19)
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
[2016-12-22 02:17] VITALS: BP 118/74
== END 2016-12-22 02:17 | disposition home or self-care (01) ==
LOC: ER 21:21
DX: S62.667A Nondisplaced fracture of distal phalanx of left little finger, initial encounter for closed fracture (principal); W20.8XXA Other cause of strike by thrown, projected or falling object, initial encounter; Z32.02 Encounter for pregnancy test, result negative; Z88.0 Allergy status to penicillin; Z88.5 Allergy status to narcotic agent
CPT/HCPCS: 99283; 81025; 73140; J3490

== ENCOUNTER 2017-01-31 22:33 | Emergency (ER) | payer MEDICAID ==
--- NOTE | 2017-01-31 23:27 | ER Document Report ---
ED General - General Chief Complaint: Fall Stated Complaint: FALL,BACK INJURY Time Seen by Provider: 01/31/17 23:18 Notes: Patient is a 26-year-old female who presents with complaint of falling on her back. She says that she was at her mom's house and the dog appeared on the floor. She slipped landing on her upper back. She points pain mainly in the thoracic spine. No weakness or numbness into extremities. No loss of bowel control. No urinary retention. She also mentions that she is about 10 days late on her menstrual period and therefore wants a test. She took Motrin at home. No other complaints at this time. TRAVEL OUTSIDE OF THE [place] IN LAST 30 DAYS: No - Related Data Allergies/Adverse Reactions: Penicillins Allergy (Verified 12/22/16 02:15) tramadol Allergy (Verified 12/22/16 02:15) Past Medical History - Social History Smoking Status: Current Some Day Smoker Frequency of alcohol use: None Drug Abuse: None Family History: Malignancy, Other - Sister was diagnosed and treated for spinal meningitis about 3 months ago.. denies: Arthritis, CAD, CVA, DM, Hyperlipidemia , Hypertension, Thyroid Disfunction Patient has suicidal ideation: No Patient has homicidal ideation: No Pulmonary Medical History: Denies: Hx Tuberculosis Neurological Medical History: Denies: Hx Seizures Renal/ Medical History: Denies: Hx Peritoneal Dialysis GI Medical History: Denies: Hx Gastroesophageal Reflux Disease Musculoskeltal Medical History: Reports Hx Arthritis - Chronic knee pain, Reports Hx Musculoskeletal Deformity, Reports Hx Musculoskeletal Trauma Psychiatric Medical History: Reports: Hx Attention Deficit Hyperactivity Disorder Past Surgical History: Reports: Hx Cholecystectomy - Had ERCP the next day for stones in the duct. Apparently may have had more. No report of ulcer. Denies : Hx Section, Hx Hysterectomy - Immunizations Immunizations up to date: Yes Hx Diphtheria, Pertussis, Tetanus Vaccination: Yes - 2013 Review of Systems - Review of Systems Notes: My Normal Review Basic REVIEW OF SYSTEMS: CONSTITUTIONAL : Denies fever, chills, or sweats. Denies recent illness. RESPIRATORY: Denies cough, cold, or chest congestion. Denies shortness of breath, difficulty breathing, or wheezing. GASTROINTESTINAL: Denies abdominal pain. Denies nausea, vomiting, or diarrhea. Denies constipation. Last BM: GENITOURINARY: Denies difficulty urinating, painful urination, burning, frequency, or blood in urine. FEMALE GENITOURINARY: Denies vaginal bleeding, abnormal or irregular periods. LMP: Days late on menstrual period. MUSCULOSKELETAL: Back pain. SKIN: Denies rash or skin lesions. NEUROLOGICAL: Denies sensory or motor loss. ALL OTHER SYSTEMS REVIEWED AND NEGATIVE. Physical Exam - Vital signs Vitals: Temp Pulse Resp BP Pulse Ox 98.1 F 97 18 124/63 99 01/31/17 22:38 01/31/17 22:38 01/31/17 22:38 01/31/17 22:38 01/31/17 22:38 - Notes Notes: General Appearance: Well nourished, alert, cooperative, no acute distress, no obvious discomfort. Well-appearing. Vitals: reviewed, See vital signs table. Head: no swelling or tenderness to the head Eyes: PERRL, EOMI, Conjuctiva clear Neck: Supple, no neck tenderness Lungs: No wheezing, No rales, No rhonci, No accessory muscle use, good air exchange bilaterally. Heart: Normal rate, Regular rythm, No murmur, no rub Abdomen: Normal BS, soft, No rigidity, No abdominal tenderness, No guarding, no rebound, no abdominal masses, no organomegaly Back: Midline tenderness palpation over thoracic spine. No step-offs or deformities. Minimal paraspinal muscular tenderness of the lumbar spine. No significant midline tenderness. Extremities: strength 5/5 in all extremities, good pulses in all extremities, no swelling or tenderness in the extremities, no edema. Skin: warm, dry, appropriate color, no rash Neuro: speech clear, oriented x 3, normal affect, responds appropriately to questions. There is good strength with plantar dorsiflexion of both feet. Distal sensation intact. Course - Re-evaluation Re-evalutation: 02/01/17 00:13 Patient's test is positive. She has no abdominal pain and no vaginal bleeding therefore ultrasound was not indicated. She does have some back pain from the fall. Thoracic x-ray was obtained was negative. I informed her to take Tylenol for pain this is safe in . I told her to longer take Motrin or ibuprofen. I encouraged her to call the OB doctor or health department for his initial establish visit for . Patient agrees with plan will be discharged home. Dictation of this chart was performed using voice recognition software; therefore, there may be some unintended grammatical errors. - Vital Signs Vital signs: Temp Pulse Resp BP Pulse Ox 98.1 F 97 18 124/63 99 01/31/17 22:38 01/31/17 22:38 01/31/17 22:38 01/31/17 22:38 01/31/17 22:38 - Laboratory Laboratory results interpreted by me: 01/31/17 23:22 Urine HCG, Qual POSITIVE H Discharge - Discharge Clinical Impression: Thoracic myofascial strain Qualifiers: Encounter type: initial encounter Qualified Code(s): S29.019A - Strain of muscle and tendon of unspecified wall of thorax, initial encounter Qualifiers: Weeks of gestation: unspecified Qualified Code(s): Z34.90 - Encounter for supervision of normal , unspecified, unspecified trimester Condition: Good Disposition: HOME, SELF-CARE Additional Instructions: Please take over the counter Tylenol for pain. Do not take Motrin since you are . Please return to the ER if you have abdominal pain, vaginal bleeding, or feel unwell. Your xray of your back is normal. There are no signs of fractures. You most likely have a strain. Heat packs to your back will be helpful. Please start taking vitamins and follow up with an IMPLEMENTATION ENGINEER physician for your initial assessment. Prescriptions: Pnv No.95/Ferrous Fum/Folic AC [ Vitamin Tablet] 1 each PO DAILY #30 tablet Referrals: KANE HERNANDEZ MD [ACTIVE STAFF] - Follow up in 3-5 days
--- NOTE | 2017-02-01 00:16 | RADIOLOGY REPORT (SQ) ---
EXAM DESCRIPTION: T SPINE AP/LAT COMPLETED DATE/TIME: 01/31/2017 11:58 pm REASON FOR STUDY: trauma COMPARISON: None. NUMBER OF VIEWS: Two views. TECHNIQUE: AP and lateral radiographic images acquired of the thoracic spine. LIMITATIONS: None. FINDINGS: MINERALIZATION: Normal. ALIGNMENT: Normal. Mild levoconvexity of the cervicothoracic spine. VERTEBRAE: No fracture or bone lesion. Maintained height, normal segmentation. DISCS: No significant loss of height or significant narrowing. No large osteophytes. HARDWARE: Right upper abdominal clips. MEDIASTINUM AND SOFT TISSUES: Normal heart size and aortic contour. No soft tissue abnormality. VISUALIZED LUNG CHOI: Clear. OTHER: No other significant finding. IMPRESSION: No acute findings. TECHNICAL DOCUMENTATION: JOB ID: [id number] [employer]- All Rights Reserved
[2017-02-01 00:45] VITALS: BP 118/59
== END 2017-02-01 00:19 | disposition home or self-care (01) ==
LOC: ER 22:33
DX: O9A.219 Injury, poisoning and certain other consequences of external causes complicating pregnancy, unspecified trimester (principal); S29.012A Strain of muscle and tendon of back wall of thorax, initial encounter; W01.0XXA Fall on same level from slipping, tripping and stumbling without subsequent striking against object, initial encounter; Y92.009 Unspecified place in unspecified non-institutional (private) residence as the place of occurrence of the external cause; O99.330 Smoking (tobacco) complicating pregnancy, unspecified trimester; Z3A.00 Weeks of gestation of pregnancy not specified; Z88.0 Allergy status to penicillin; Z88.5 Allergy status to narcotic agent
CPT/HCPCS: 72070; 81025; 99283

== ENCOUNTER 2017-07-10 21:49 | Outpatient (CLI) | payer MEDICAID ==
[2017-07-10 22:32] LABS: APPEARANCE,URINE SLIGHTLY-CLOUDY; BILIRUBIN,URINE NEGATIVE (NEGATIVE); GLUCOSE, URINE NEGATIVE (NEGATIVE); KETONES,URINE NEGATIVE (NEGATIVE); LEUKOCYTE ESTERASE,URINE NEGATIVE (NEGATIVE); NITRITE,URINE NEGATIVE (NEGATIVE); PROTEIN,URINE NEGATIVE (NEGATIVE); URINE SPECIFIC GRAVITY 1.025
[2017-07-10 22:34] LABS: COLOR,URINE DARK YELLOW
[2017-07-10] MEDS ORDERED: RINGERS SOLUTION,LACTATED 1,000 ML IV ONE (22:41)
[2017-07-10] MEDS ORDERED: PROMETHAZINE HCL INJ 25 MG/1 ML VIAL IV ONE (22:41)
[2017-07-10] MEDS ORDERED: PROMETHAZINE HCL INJ 25 MG/1 ML VIAL ONE (22:44)
[2017-07-10 23:01] LABS: URINE AMPHETAMINES SCREEN NEGATIVE; URINE BARBITURATES SCREEN NEGATIVE; URINE BENZODIAZEPINES SCREEN NEGATIVE; URINE COCAINE SCREEN NEGATIVE; URINE MARIJUANA (THC) SCREEN NEGATIVE; URINE METHADONE SCREEN NEGATIVE; URINE PHENCYCLIDINE SCREEN NEGATIVE
[2017-07-10] MEDS ORDERED: MAG HYDROX/AL HYDROX/SIMETH SUSP 30 ML UDCUP ONE (23:42)
[2017-07-11] MEDS ORDERED: ACETAMINOPHEN 325 MG TABLET ONE (01:48)
== END 2017-07-11 02:01 | disposition home or self-care (01) ==
LOC: LC 21:49
PROVIDERS: ATTEND Obstetrics & Gynecology
PROC: 4A1HXCZ Monitoring of Products of Conception, Cardiac Rate, External Approach (ICD-10-PCS; principal; 2017-07-10)
DX: O21.2 Late vomiting of pregnancy (principal); Z3A.29 29 weeks gestation of pregnancy
CPT/HCPCS: 59899; 81001; 80307; J3490 ×2; J2550

== ENCOUNTER 2017-09-03 21:38 | Outpatient (CLI) | payer MEDICAID ==
[2017-09-03 22:12] LABS: APPEARANCE,URINE SLIGHTLY-CLOUDY; BILIRUBIN,URINE NEGATIVE (NEGATIVE); GLUCOSE, URINE NEGATIVE (NEGATIVE); KETONES,URINE NEGATIVE (NEGATIVE); LEUKOCYTE ESTERASE,URINE TRACE (NEGATIVE); NITRITE,URINE NEGATIVE (NEGATIVE); PROTEIN,URINE NEGATIVE (NEGATIVE); URINE SPECIFIC GRAVITY 1.024
[2017-09-03 22:15] LABS: COLOR,URINE DARK YELLOW
[2017-09-03 22:31] LABS: URINE AMPHETAMINES SCREEN NEGATIVE; URINE BARBITURATES SCREEN NEGATIVE; URINE BENZODIAZEPINES SCREEN NEGATIVE; URINE COCAINE SCREEN NEGATIVE; URINE MARIJUANA (THC) SCREEN NEGATIVE; URINE METHADONE SCREEN NEGATIVE; URINE PHENCYCLIDINE SCREEN NEGATIVE
--- NOTE | 2017-09-03 22:57 | Non Stress Test Report ---
Non Stress Test Datetime Report Generated by CPN: 09/03/2017 22:57 DEMOGRAPHIC EGA NST: 36.2 INDICATION Indication for Study: Ordered by Provider URINE RESULTS Urine Protein, NST: Negative Urine Ketones - NST: Negative Urine Blood - NST: Negative MONITORING Monitor Explained: Monitor Explained; Test Explained; Patient Verbalized Understanding Time on Monitor: 09/03/2017 22:00 Time off Monitor: 09/03/2017 22:44 NST Duration: 44 NST INTERVENTIONS NST Interventions: PO Hydration Physician Notified NST: Dr. Goddard BABY A: [id number] BABY A Movement : Present Contraction Frequency : 0 FHR Baseline : 140 Accelerations : 15X15 Decelerations : None Variability : Moderate 6-25bpm NST Review: Meets Criteria for Reactive NST NST Review and Verified By : Nancy Sutton RN NST Results: Reactive NST REPORT Report Trigger: Send Report
== END 2017-09-03 22:48 | disposition home or self-care (01) ==
LOC: LC 21:38
PROVIDERS: ATTEND Obstetrics & Gynecology
PROC: 4A1HXCZ Monitoring of Products of Conception, Cardiac Rate, External Approach (ICD-10-PCS; principal; 2017-09-03)
DX: O47.03 False labor before 37 completed weeks of gestation, third trimester (principal); Z3A.36 36 weeks gestation of pregnancy
CPT/HCPCS: 59025; 80307; 81005

== ENCOUNTER 2017-09-04 19:49 | Emergency (ER) | payer OTHER, MEDICAID ==
[2017-09-04 20:09] VITALS: BP 112/66
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
== END 2017-09-04 20:44 | disposition admitted as inpatient to this hospital (09) ==
LOC: ER 19:49
DX: O99.89 Other specified diseases and conditions complicating pregnancy, childbirth and the puerperium (principal); M54.5 Low back pain; V49.50XA Passenger injured in collision with unspecified motor vehicles in traffic accident, initial encounter; O99.333 Smoking (tobacco) complicating pregnancy, third trimester; Z3A.36 36 weeks gestation of pregnancy; Z88.0 Allergy status to penicillin; Z88.5 Allergy status to narcotic agent
CPT/HCPCS: 99283

== ENCOUNTER 2017-09-04 20:52 | Outpatient (CLI) | payer OTHER, MEDICAID ==
[2017-09-04 21:23] LABS: APPEARANCE,URINE CLOUDY; BILIRUBIN,URINE NEGATIVE (NEGATIVE); GLUCOSE, URINE NEGATIVE (NEGATIVE); KETONES,URINE NEGATIVE (NEGATIVE); LEUKOCYTE ESTERASE,URINE SMALL (NEGATIVE); NITRITE,URINE NEGATIVE (NEGATIVE); PROTEIN,URINE 30 mg/dL (NEGATIVE); URINE SPECIFIC GRAVITY 1.026
[2017-09-04 21:36] LABS: COLOR,URINE YELLOW
[2017-09-04 21:40] LABS: URINE AMPHETAMINES SCREEN NEGATIVE; URINE BARBITURATES SCREEN NEGATIVE; URINE BENZODIAZEPINES SCREEN NEGATIVE; URINE COCAINE SCREEN NEGATIVE; URINE MARIJUANA (THC) SCREEN NEGATIVE; URINE METHADONE SCREEN NEGATIVE; URINE PHENCYCLIDINE SCREEN NEGATIVE
[2017-09-04 22:58] LABS: CHLAM PCR NOT DETECTED (NOT DETECT); GON PCR NOT DETECTED (NOT DETECT)
--- NOTE | 2017-09-04 23:45 | Non Stress Test Report ---
Non Stress Test Datetime Report Generated by CPN: 09/04/2017 23:45 DEMOGRAPHIC Test Number: 2 EGA NST: 36.3 INDICATION Indication for Study: Ordered by Provider MONITORING Monitor Explained: Monitor Explained; Test Explained; Patient Verbalized Understanding Time on Monitor: 09/04/2017 21:03 Time off Monitor: 09/04/2017 23:25 NST Duration: 142 NST INTERVENTIONS NST Interventions: PO Hydration Physician Notified NST: Dr Thaddeus BABY A: [id number] BABY A Movement : Present Contraction Frequency : none FHR Baseline : 145 Accelerations : 15X15 Decelerations : None Variability : Moderate 6-25bpm NST Review: Meets Criteria for Reactive NST NST Review and Verified By : Nancy Sutton RN NST Results: Reactive NST REPORT Report Trigger: Send Report
== END 2017-09-04 23:28 | disposition home or self-care (01) ==
LOC: LC 20:52
PROVIDERS: ATTEND Obstetrics & Gynecology
PROC: 4A1HXCZ Monitoring of Products of Conception, Cardiac Rate, External Approach (ICD-10-PCS; principal; 2017-09-04)
DX: O47.03 False labor before 37 completed weeks of gestation, third trimester (principal); Z3A.36 36 weeks gestation of pregnancy
CPT/HCPCS: 59025; 80307; 81005; 87491; 87591

== ENCOUNTER 2017-09-28 10:50 | Inpatient (IN) | payer MEDICAID ==
[2017-09-28] MEDS ORDERED: MISOPROSTOL 0.2 MG TABLET ONE (10:59)
[2017-09-28] MEDS ORDERED: LIDOCAINE 1% INJ-PF (10 MG/ML) 30 ML SDV ONE (10:59)
[2017-09-28] MEDS ORDERED: RINGERS SOLUTION,LACTATED 300 ML IV ONE (11:00)
[2017-09-28] MEDS ORDERED: DINOPROSTONE 10 MG VAGINAL INSERT.SR PV PRN (11:00)
[2017-09-28] MEDS ORDERED: OXYTOCIN/NORMAL SALINE 20 UNIT/1,000 ML RTUINJ IV PRN (11:00)
[2017-09-28] MEDS ORDERED: OXYTOCIN/NORMAL SALINE 20 UNIT/1,000 ML RTUINJ ONE (11:00)
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
[2017-09-28 11:34] LABS: HEMATOCRIT 35.3 % (36.0-47.0); HEMOGLOBIN 12.6 g/dL (12.0-15.5); MEAN CORPUSCULAR HGB CONC 35.7 g/dL (32.0-36.0); MEAN CORPUSCULAR VOLUME 90 fl (80-97); PLATELET COUNT 181 10^3/uL (150-450); RED BLOOD COUNT 3.94 10^6/uL (3.72-5.28); RED CELL DISTRIBUTION WIDTH 13.1 % (11.5-14.0); WHITE BLOOD COUNT 9.7 10^3/uL (4.0-10.5)
--- NOTE | 2017-09-28 12:17 | L&D Progress Notes ---
PROGRESS NOTES Datetime Report Generated by CPN: 09/28/2017 12:17 PROGRESS NOTE Comment: POS SLOS on screening 05-04-17, no MFM consult or targeted sono, non compliant with visits. Discussed with Dr. Norman and he suggested we have her transferred due to possibility of baby having this syndrome and may have cardiac defects, Called Dr. Mao and she said it is so rare and a sono at this point would not show anything. Dr. Mao thought it would be ok to deliver here at [facility], Discussed with Dr. Norman again and he suggested a sono to target the heart before IOL. Sono ordered VAGINAL EXAM Dilatation: 2 Effacement: 50 FETUS A : 39.5 Presentation: Vertex SIGNATURE SIGNATURE: ,[id number];,[id number];,[id number] SIGNATURE: ,[id number];,[id number] SIGNATURE: ,[id number] SIGNATURE: [id number] Assignment: Yaneth Travis MD Signature: with User ID: [email or web address] : with User ID: [email or web address]
[2017-09-28] MEDS ORDERED: MAG HYDROX/AL HYDROX/SIMETH SUSP 30 ML UDCUP PO PRN ×2 (12:20→18:31)
[2017-09-28] MEDS ORDERED: MAG HYDROX/AL HYDROX/SIMETH SUSP 30 ML UDCUP ONE ×2 (12:22→18:26)
[2017-09-28 13:45] LABS: APPEARANCE,URINE SLIGHTLY-CLOUDY; BILIRUBIN,URINE NEGATIVE (NEGATIVE); COLOR,URINE YELLOW; GLUCOSE, URINE NEGATIVE (NEGATIVE); KETONES,URINE NEGATIVE (NEGATIVE); LEUKOCYTE ESTERASE,URINE NEGATIVE (NEGATIVE); NITRITE,URINE NEGATIVE (NEGATIVE); PROTEIN,URINE NEGATIVE (NEGATIVE); URINE SPECIFIC GRAVITY 1.021
[2017-09-28 14:00] LABS: URINE AMPHETAMINES SCREEN NEGATIVE; URINE BARBITURATES SCREEN NEGATIVE; URINE BENZODIAZEPINES SCREEN NEGATIVE; URINE COCAINE SCREEN NEGATIVE; URINE MARIJUANA (THC) SCREEN NEGATIVE; URINE METHADONE SCREEN NEGATIVE; URINE PHENCYCLIDINE SCREEN NEGATIVE
--- NOTE | 2017-09-28 15:12 | RADIOLOGY REPORT (SQ) ---
EXAM DESCRIPTION: U/S OB 14+ TA/1 GEST W/DOPPLER COMPLETED DATE/TIME: 09/28/2017 1:50 pm REASON FOR STUDY: IUGR, INTERMITTENT CARE COMPARISON: OB ultrasound 02/05/2017 (at that time EGA 5 weeks 6 days, EDC 10/02/2017). TECHNIQUE: Static and Dynamic grayscale imaging performed of gravid uterus using transabdominal appr oach. Additional selected color Doppler and spectral images recorded. All stored on PACS. LIMITATIONS: None. FINDINGS: EGA: By ultrasound today, multiple measurements generate an estimated age of 35 weeks 5 da ys OLE: By ultrasound measurements 10/28/2017 EFW: 2715 g grams PERCENTILE: Not calculated ALEX: 5.7 cm. Largest pocket is 1.7 cm in the left upper quadrant. Visually, there is decreased flui d around the fetus PLACENTA: Fundal GRADE: III PRESENTATION: Cephalic. ANATOMY: HEART RATE: 149 beats per minute. FOUR CHAMBER HEART: Visualized. THREE VESSEL CORD: Yes. CORD INSERTION: Visualized. KIDNEYS AND BLADDER: Visualized. Appear normal. STOMACH: Visualized. Appears normal. SPINE: Normal as visualized. BRAIN AND LATERAL VENTRICLES: Limited visualization due to cephalic orientation OTHER: No other significant finding. MATERNAL ADNEXA: Maternal ovaries not visualized. CERVICAL LENGTH: 4.5 cm. Closed. OTHER: No other significant finding. IMPRESSION: LIVING INTRAUTERINE . ESTIMATED GESTATIONAL AGE by ultrasound measurements today, 35 weeks 5 days, estimated weight 2 715 g Grade 3 placenta, fundal. Oligohydramnios Trimester of : Third trimester - 28 weeks to delivery. TECHNICAL DOCUMENTATION: JOB ID: [id number] [employer]- All Rights Reserved Reading location - IP/workstation name: [facility]
--- NOTE | 2017-09-28 15:51 | L&D Progress Notes ---
PROGRESS NOTES Datetime Report Generated by CPN: 09/28/2017 15:51 PROGRESS NOTE Vital Signs : Reviewed; Within Normal Limits Comment: Ultrasound report back, ALEX = 4, grade 3 placenta, calcified. 35+5, 2715 GM, 4 chamber heart CL = 4.5 cm/closed per sono Will start Pitocin and monitor closely FETUS A FHR - Baseline: 130 Monitoring: External US Variability: Moderate 6-25bpm Accelerations: 15X15 FETUS C SIGNATURE: 13,[id number];14,[id number];10,[id number] Assignment: Yaneth Travis MD Signature: with User ID: Kevin : with User ID: Kevin
[2017-09-28] MEDS: RINGERS SOLUTION,LACTATED 1,000 ML IV PRN (16:20)
[2017-09-28] MEDS ORDERED: MISOPROSTOL 0.1 MG TABLET PO ONE (19:07)
[2017-09-28] MEDS ORDERED: MISOPROSTOL 0.1 MG TABLET ONE (19:50)
[2017-09-28] MEDS ORDERED: NALBUPHINE HCL INJ 10 MG/1 ML AMPULE INJ ONE (20:49)
[2017-09-28] MEDS ORDERED: PROMETHAZINE HCL INJ 25 MG/1 ML VIAL IV ONE (20:49)
[2017-09-28] MEDS ORDERED: PROMETHAZINE HCL INJ 25 MG/1 ML VIAL ONE (20:55)
[2017-09-28] MEDS ORDERED: NALBUPHINE HCL INJ 10 MG/1 ML AMPULE ONE (20:56)
[2017-09-29] MEDS ORDERED: MISOPROSTOL 0.1 MG TABLET PO ONE (01:50)
[2017-09-29] MEDS ORDERED: MISOPROSTOL 0.1 MG TABLET ONE (01:52)
[2017-09-29] MEDS ORDERED: NALBUPHINE HCL INJ 10 MG/1 ML AMPULE ONE ×2 (01:59→09:00)
[2017-09-29] MEDS ORDERED: PROMETHAZINE HCL INJ 25 MG/1 ML VIAL ONE (01:59)
[2017-09-29] MEDS ORDERED: MAG HYDROX/AL HYDROX/SIMETH SUSP 30 ML UDCUP ONE (02:00)
[2017-09-29] MEDS ORDERED: EPHEDRINE SULFATE INJ 50 MG/1 ML AMPULE ONE (08:35)
[2017-09-29] MEDS ORDERED: FENTANYL CITRATE INJ/PF 100 MCG/2 ML AMPUL ONE (08:35)
[2017-09-29] MEDS ORDERED: FENTANYL/BUPIVACAINE/NS/PF 300 MCG/150 ML RTUINJ EPI ONE (08:36)
[2017-09-29] MEDS ORDERED: BUPIVACAINE HCL 0.25 % INJ/PF (2.5 MG/1 ML) 30 ML VIAL ONE (08:36)
[2017-09-29] MEDS ORDERED: PHENYLEPHRINE HCL INJ/PF 10 MG/1 ML SDV ONE (08:36)
[2017-09-29] MEDS ORDERED: LIDOCAINE 1% INJ-PF (10 MG/ML) 30 ML SDV ONE (09:01)
--- NOTE | 2017-09-29 09:05 | L&D Progress Notes ---
PROGRESS NOTES Datetime Report Generated by CPN: 09/29/2017 09:05 PROGRESS NOTE Impression: Normal Progression of Labor Procedures: Artificial ROM Plan: Continue Present Management Comment: pt wants epidural MEMBRANES Membranes: Ruptured Amniotic Fluid Color: Clear FETUS A FHR - Baseline: 130 Decelerations: None FHR Category: Category I : 40.0 Estimated Weight (gm): 2700 FETUS C SIGNATURE: 10,[id number];14,[id number];13,[id number] Assignment: Jozef Goddard MD Signature: with User ID: [email or web address] : with User ID: [email or web address]
[2017-09-29 09:14] LABS: ABSOLUTE EOSINOPHILS # (AUTO) 0.1 10^3/uL (0.0-0.6); ABSOLUTE LYMPHOCYTES (AUTO) 1.7 10^3/uL (0.5-4.7); ABSOLUTE MONOCYTES (AUTO) 0.8 10^3/uL (0.1-1.4); ABSOLUTE NEUT (AUTO) 8.7 10^3/uL (1.7-8.2); BASOPHILS % (AUTO) 0.3 % (0-2); EOSINOPHILS % (AUTO) 0.8 % (0-6); HEMATOCRIT 34.6 % (36.0-47.0); HEMOGLOBIN 12.2 g/dL (12.0-15.5); LYMPHOCYTES % (AUTO) 15.4 % (13-45); MEAN CORPUSCULAR HEMOGLOBIN 32.1 pg (27.0-33.4); MEAN CORPUSCULAR HGB CONC 35.3 g/dL (32.0-36.0); MEAN CORPUSCULAR VOLUME 91 fl (80-97); MONOCYTES % (AUTO) 6.8 % (3-13); PLATELET COUNT 139 10^3/uL (150-450); RED BLOOD COUNT 3.79 10^6/uL (3.72-5.28); RED CELL DISTRIBUTION WIDTH 13.2 % (11.5-14.0); SEGMENTED NEUTROPHILS % (AUTO) 76.7 % (42-78); TOTAL CELLS COUNTED % (AUTO) 100 %; WHITE BLOOD COUNT 11.3 10^3/uL (4.0-10.5)
[2017-09-29] MEDS: RINGERS SOLUTION,LACTATED 1,000 ML IV PRN ×2 (09:14→10:32)
[2017-09-29] MEDS ORDERED: LIDOCAINE 1.5%/EPINEPHRINE INJ-PF 30 ML SDV ONE (09:39)
[2017-09-29] MEDS ORDERED: NALBUPHINE HCL INJ 10 MG/1 ML AMPULE INJ ONE (09:45)
[2017-09-29] MEDS ORDERED: GLYCERIN/WITCH HAZEL LEAF 1 EACH MED..PAD TP PRN (11:54)
[2017-09-29] MEDS ORDERED: MAGNESIUM HYDROXIDE SUSP 30 ML UDCUP PO PRN (11:54)
[2017-09-29] MEDS ORDERED: ACETAMINOPHEN WITH CODEINE #3 TABLET PO PRN ×2 (11:54)
[2017-09-29] MEDS ORDERED: BENZOCAINE/MENTHOL AEROSOL SPRAY 56 ML TOP PRN (11:54)
[2017-09-29] MEDS ORDERED: DIPHENHYDRAMINE HCL 25 MG CAPSULE PO PRN (11:54)
[2017-09-29] MEDS ORDERED: PSEUDOEPHEDRINE HCL 30 MG TABLET PO PRN (11:54)
[2017-09-29] MEDS ORDERED: PROMETHAZINE HCL 25 MG SUPP.RECT PR PRN (11:54)
[2017-09-29] MEDS ORDERED: PROMETHAZINE HCL INJ 25 MG/1 ML VIAL IV PRN (11:54)
[2017-09-29] MEDS ORDERED: DIPH/PERTUSS(ACELL)/TETANUS VAC/PF 0.5 ML SYR (>=10YO) IM PRN (11:54)
[2017-09-29] MEDS ORDERED: NA PHOS,M-B/NA PHOS,DI-BA (ADULT) 133 ML ENEMA PR PRN (11:54)
[2017-09-29] MEDS ORDERED: MEASLES,MUMPS&RUBELLA VACC/PF 0.5 ML VIAL SUBCUT PRN (11:54)
[2017-09-29] MEDS ORDERED: ACETAMINOPHEN 650 MG SUPP.RECT PR PRN (11:54)
[2017-09-29] MEDS ORDERED: DIBUCAINE 1% OINTMENT 28 GM TP PRN (11:54)
[2017-09-29] MEDS ORDERED: ZOLPIDEM TARTRATE 5 MG TABLET PO PRN (11:54)
[2017-09-29] MEDS ORDERED: OXYTOCIN/NORMAL SALINE 20 UNIT/1,000 ML RTUINJ IV PRN (11:54)
[2017-09-29] MEDS ORDERED: PROMETHAZINE HCL 25 MG TABLET PO PRN (11:54)
--- NOTE | 2017-09-29 14:48 | Delivery Summary ---
Del Sum A-C Datetime Report Generated by CPN: 09/29/2017 14:48 DELIVERY PERSONNEL DELIVERY PERSONNEL: [id number] Delivery Doctor:: Katey Sharma CNM Labor and Delivery Nurse:: Humaira Park RN Nursery Nurse:: Juany alberts RN Culinary Manager/GREETING CARD WRITER: Lachelle Montano, ST Culinary Manager/GREETING CARD WRITER: Colette Mitchel, PILLOWCASE TURNER MATERNAL INFORMATION Delivery Anesthesia: Epidural Medications After Delivery: Pitocin Bolus-Please Comment; Pitocin Drip 20 Units/1000ml NSS Maternal Complications: None Provider Comments: SVDVF over intact perineum with nuchal cord and compound rt hand, somersaulted through. Infant vigorous, placed on mothers abd, cord clamped x 2 cut per family member. Cord blood collected, placenta del spontaneously via patrick, intact. Thin cord noted. apgars 8,9. mother and infant stable. LABOR SUMMARY EDC: 09/29/2017 00:00 No. Babies in Womb: 1 Attempted: No Labor Anesthesia: Epidural LABOR INFORMATION Reason for Induction: Intrauterine Growth Retardation Onset of Labor: 09/29/2017 08:25 Complete Dilatation: 09/29/2017 11:11 Cervical Ripening Agents: Cytotec @ Oxytocin: Induction Group B Beta Strep: Negative Antibiotics # of Doses: 0 Steroids Given: None Reason Steroids Not Administered: Not Applicable MEMBRANES Membranes Rupture Method: Artificial Rupture of Membranes: 09/29/2017 08:25 Length of Rupture (hr): 3.43 Amniotic Fluid Color: Clear Amniotic Fluid Amount: Small STAGES OF LABOR Stage 1 hr: 2 Stage 1 min: 46 Stage 2 hr: 0 Stage 2 min: 40 Stage 3 hr: 0 Stage 3 min: 8 Total Time in Labor hr: 3 Total Time in Labor min: 34 VAGINAL DELIVERY Episiotomy: None Laceration #1: None Laceration Extension #1: N/A Other Laceration: RT _ LT LABIAL ABRASIONS Laceration Repair: No Laceration Repair Note: none needed Sponge Count Correct: N/A Sharps Count Correct: N/A BABY A INFORMATION Infant Delivery Date/Time: 09/29/2017 11:51 Method of Delivery: Vaginal Born in Route : No : N/A Forceps: N/A Vacuum Extraction: N/A Shoulder Dystocia : No PRESENTATION/POSITION BABY A Presentation: Cephalic Cephalic Presentation: Vertex Vertex Position: Right Occipital Anterior WITH COMPOUND RT HAND Breech Presentation: N/A PLACENTA INFORMATION BABY A Placenta Delivery Time : 09/29/2017 11:59 Placenta Method of Delivery: Spontaneous Placenta Status: Delivered SCORES BABY A Heart Rate 1 min: >100 bpm Resp Effort 1 min: Good Cry Reflex Irritability 1 min: Cough or Sneeze or Pulls Away Muscle Tone 1 min: Active Motion Color 1 min: Blue/Pale Resuscitation Effort 1 min: Tactile Stimulation SCORE 1 MIN: 8 Heart Rate 5 min: >100 bpm Resp Effort 5 min: Good Cry Reflex Irritability 5 min: Cough or Sneeze or Pulls Away Muscle Tone 5 min: Active Motion Color 5 min: Body Ethete, Extremities Blue Resuscitation Effort 5 min: Tactile Stimulation SCORE 5 MIN: 9 INFANT INFORMATION BABY A Gestational Age at Delivery: 40.0 Gestational Status: Full Term- 39- 40.6 Weeks Outcome : Stillborn Infant Condition : Stable Sex: Female IDENTIFICATION BABY A Infant Verification Date/Time: 09/29/2017 12:28 ID Band Number: [id number] Mother's Name Verified: Yes Infant RN Verifying : Kary Moses, RN BL Alexilund, RN WEIGHT/LENGTH BABY A Birthweight (gm): 2680 Weight (lb): 5 Infant Weight (oz): 15 Infant Length (in): 19.75 Length (cm): 50.17 CORD INFORMATION BABY A No. Cord Vessels: 3 Nuchal Cord : Around Neck x1, Loose Cord Blood Taken: Yes-For Eval (Mom's Blood Type - or O+) Infant Suction: None ASSESSMENT BABY A Infant Complications: Multiple Late Decels; Multiple Variable Decels; Oligohydramnios Physical Findings at Delivery: Within Normal Limits Infant Respirations: Appears Normal Skin to Skin: Yes Skin to Skin Time (min): 55 Golf Club Manager/ALS Called : No Care By: Clare CUNNINGHAM RN Transferred To: Remains with Mother BABY B INFORMATION : N/A SIGNATURES : I was personally available for consultation and serving as supervising physician for the MLP.
[2017-09-29] MEDS: IBUPROFEN 800 MG TABLET PO SCH ×2 (15:01→21:29)
[2017-09-29] MEDS ORDERED: OXYCODONE-ACETAMINOPHEN 5-325 MG TABLET PO PRN (15:19)
[2017-09-29] MEDS: OXYCODONE-ACETAMINOPHEN 5-325 MG TABLET PO PRN ×2 (15:58→21:29)
[2017-09-29] MEDS: DOCUSATE SODIUM 100 MG CAPSULE PO SCH (18:05)
[2017-09-29] MEDS: FERROUS SULFATE 325 MG TABLET PO SCH (18:05)
[2017-09-29] MEDS: FAMOTIDINE 20 MG TABLET PO SCH (21:30)
[2017-09-30] MEDS: OXYCODONE-ACETAMINOPHEN 5-325 MG TABLET PO PRN ×4 (01:38→17:28)
[2017-09-30] MEDS: IBUPROFEN 800 MG TABLET PO SCH ×3 (06:22→21:34)
[2017-09-30 07:21] LABS: HEMATOCRIT 28.3 % (36.0-47.0); HEMOGLOBIN 10.2 g/dL (12.0-15.5); MEAN CORPUSCULAR HEMOGLOBIN 32.8 pg (27.0-33.4); MEAN CORPUSCULAR HGB CONC 35.8 g/dL (32.0-36.0); MEAN CORPUSCULAR VOLUME 92 fl (80-97); PLATELET COUNT 128 10^3/uL (150-450); RED BLOOD COUNT 3.09 10^6/uL (3.72-5.28); RED CELL DISTRIBUTION WIDTH 13.3 % (11.5-14.0); WHITE BLOOD COUNT 10.6 10^3/uL (4.0-10.5)
--- NOTE | 2017-09-30 08:49 | PDOC PROGRESS REPORT ---
Subjective-OB Progress Note for:: 09/30/17 Physical Exam (OB) Vital Signs: Temp Pulse Resp BP Pulse Ox 97.8 F 68 18 107/52 L 97 09/30/17 08:05 09/30/17 08:05 09/30/17 08:05 09/30/17 08:05 09/30/17 08:05 Intake & Output 09/29/17 09/30/17 10/01/17 06:59 06:59 06:59 Intake Total 450 Balance 450 Weight 81.8 kg - Lochia Lochia Amount: Small 10-25 ml Lochia Color: Rubra/Red - Abdomen Description: Soft Hernia Present: No Bowel Sounds: Normoactive Flatus Presence: Present Stool: No Fundal Description: Firm Fundal Height: u/u - u/2 Objective-Diagnostic Laboratory: 09/30/17 06:53 09/29/17 09/30/17 08:57 06:53 WBC 11.3 H 10.6 H RBC 3.79 3.09 L Hgb 12.2 10.2 L Hct 34.6 L 28.3 L MCV 91 92 MCH 32.1 32.8 MCHC 35.3 35.8 RDW 13.2 13.3 Plt Count 139 L 128 L Seg Neutrophils % 76.7 Lymphocytes % 15.4 Monocytes % 6.8 Eosinophils % 0.8 Basophils % 0.3 Absolute Neutrophils 8.7 H Absolute Lymphocytes 1.7 Absolute Monocytes 0.8 Absolute Eosinophils 0.1 Absolute Basophils 0.0
[2017-09-30] MEDS: DOCUSATE SODIUM 100 MG CAPSULE PO SCH ×2 (10:05→17:27)
[2017-09-30] MEDS: SENNOSIDES/DOCUSATE 8.6-50 MG 1 EACH TABLET PO SCH (10:06)
[2017-09-30] MEDS: FERROUS SULFATE 325 MG TABLET PO SCH ×2 (10:07→17:28)
[2017-09-30] MEDS: PRENATAL VITAMIN W DHA CAPSULE PO SCH (10:07)
[2017-09-30] MEDS: FAMOTIDINE 20 MG TABLET PO SCH ×2 (10:15→21:36)
[2017-10-01] MEDS: OXYCODONE-ACETAMINOPHEN 5-325 MG TABLET PO PRN ×2 (04:15→09:54)
[2017-10-01] MEDS: IBUPROFEN 800 MG TABLET PO SCH (05:52)
[2017-10-01] MEDS: PRENATAL VITAMIN W DHA CAPSULE PO SCH (09:53)
[2017-10-01] MEDS: FERROUS SULFATE 325 MG TABLET PO SCH (09:54)
[2017-10-01] MEDS: DOCUSATE SODIUM 100 MG CAPSULE PO SCH (09:57)
[2017-10-01] MEDS: FAMOTIDINE 20 MG TABLET PO SCH (09:57)
[2017-10-01] MEDS: SENNOSIDES/DOCUSATE 8.6-50 MG 1 EACH TABLET PO SCH (09:57)
[2017-10-01 10:18] VITALS: BP 107/52
--- NOTE | 2017-10-01 10:45 | PDOC DISCHARGE SUMMARY ---
Final Diagnosis Discharge Date: 10/01/17 - Final Diagnosis (1) Chronic pain Is this a current diagnosis for this admission?: Yes (2) Delivery normal Is this a current diagnosis for this admission?: Yes Discharge Data - Discharge Medication Prescriptions: Ibuprofen [Motrin 800 mg Tablet] 800 mg PO Q8 #90 tablet Oxycodone HCl/Acetaminophen [Percocet 5-325 mg Tablet] 1 tab PO Q4HP PRN #8 tablet PRN Reason: Home Medications: Pnv No.103/Folic/Om3s/Fish Oil [ Gummies] 1 each PO DAILY 02/05/17 Ibuprofen [Motrin 800 mg Tablet] 800 mg PO Q8 #90 tablet 10/01/17 Oxycodone HCl/Acetaminophen [Percocet 5-325 mg Tablet] 1 tab PO Q4HP PRN #8 tablet 10/01/17 Vit/Dha [ Multi + Dha Capsule] 1 cap PO DAILY capsule Procedures: NST Intrapartum Procedure(s): Spontaneous Vaginal Delivery - Diagnosis Test Laboratory: Temp Pulse Resp BP Pulse Ox 97.8 F 71 18 107/52 L 100 10/01/17 10:17 10/01/17 10:17 10/01/17 10:17 10/01/17 10:17 10/01/17 10:17 09/28/17 09/28/17 09/29/17 10:55 11:20 08:57 RBC 3.94 3.79 Hgb 12.6 12.2 Hct 35.3 L 34.6 L Urine Opiates Screen NEGATIVE 09/30/17 06:53 RBC 3.09 L Hgb 10.2 L Hct 28.3 L Urine Opiates Screen - Discharge information/Instructions Discharge Activity: Balance Activity w/Rest, Pelvic Rest Discharge Diet: Regular Disposition: HOME, SELF-CARE Follow up with: [facility] in: 4, Weeks - f/u with pain mgt ENOC, percocet (8) and ibuprofen until she sees pain mgt
== END 2017-10-01 11:36 | disposition home or self-care (01) | DRG 775 ==
LOC: LR 10:50 → 2S 09-29 14:29
PROVIDERS: ADMIT Obstetrics & Gynecology; ATTEND Obstetrics & Gynecology
PROC: 10E0XZZ Delivery of Products of Conception, External Approach (ICD-10-PCS; principal; 2017-09-29)
PROC: 3E033VJ Introduction of Other Hormone into Peripheral Vein, Percutaneous Approach (ICD-10-PCS; 2017-09-29)
PROC: 10907ZC Drainage of Amniotic Fluid, Therapeutic from Products of Conception, Via Natural or Artificial Opening (ICD-10-PCS; 2017-09-29)
PROC: 4A1HXCZ Monitoring of Products of Conception, Cardiac Rate, External Approach (ICD-10-PCS; 2017-09-29)
PROC: 3E0234Z Introduction of Serum, Toxoid and Vaccine into Muscle, Percutaneous Approach (ICD-10-PCS; 2017-10-01)
DX: O36.5930 Maternal care for other known or suspected poor fetal growth, third trimester, not applicable or unspecified (principal); O41.03X0 Oligohydramnios, third trimester, not applicable or unspecified; O99.334 Smoking (tobacco) complicating childbirth; F17.210 Nicotine dependence, cigarettes, uncomplicated; O99.513 Diseases of the respiratory system complicating pregnancy, third trimester; J45.909 Unspecified asthma, uncomplicated; O69.81X0 Labor and delivery complicated by cord around neck, without compression, not applicable or unspecified; O32.6XX0 Maternal care for compound presentation, not applicable or unspecified; O76 Abnormality in fetal heart rate and rhythm complicating labor and delivery; Z88.6 Allergy status to analgesic agent; Z88.0 Allergy status to penicillin; Z90.49 Acquired absence of other specified parts of digestive tract; Z91.19 Patient's noncompliance with other medical treatment and regimen; Z23 Encounter for immunization; Z3A.40 40 weeks gestation of pregnancy; Z37.0 Single live birth
CPT/HCPCS: 36415; 76805; 80307; 81005; 85025; 85027; 86592; 86850; 86900; 86901; 88307; 90715; 93976; J2300; J2370; J2550; J2590; J3010; J3490

== ENCOUNTER 2017-10-14 19:05 | Emergency (ER) | payer MEDICAID ==
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
[2017-10-14] MEDS ORDERED: KETOROLAC TROMETHAMINE 60 MG/2 ML SDV IM ONE (22:15)
[2017-10-14] MEDS ORDERED: HYDROCODONE/ACETAMINOPHEN 5-325 MG (6 TAB/ER DISP) PO PRN (22:15)
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
[2017-10-14 22:43] VITALS: BP 110/65
== END 2017-10-14 22:43 | disposition home or self-care (01) ==
LOC: ER 19:05
DX: M79.602 Pain in left arm (principal); V86.39XA Unspecified occupant of other special all-terrain or other off-road motor vehicle injured in traffic accident, initial encounter; Z88.0 Allergy status to penicillin; Z88.6 Allergy status to analgesic agent; F17.200 Nicotine dependence, unspecified, uncomplicated
CPT/HCPCS: 99283; 96372; 73080; 73090; 73130; 72110; 73030; 73110; J1885

== ENCOUNTER 2017-12-19 21:06 | Emergency (ER) | payer MEDICAID | END 2017-12-19 22:59 | disposition left against medical advice (07) | LOC: ER 21:06 | DX: Z53.21 Procedure and treatment not carried out due to patient leaving prior to being seen by health care provider (principal) ==

== ENCOUNTER 2018-01-26 19:13 | Emergency (ER) | payer MEDICAID ==
--- NOTE | 2018-01-26 21:30 | ER Document Report ---
ED Skin Rash/Insect Bite/Abscs - General Chief Complaint: Abscess Stated Complaint: POSSIBLE ABSCESS Time Seen by Provider: 01/26/18 21:12 Mode of Arrival: Ambulatory Information source: Patient Notes: -year-old female presented to ED for complaint of swelling and painful areas to the left axilla for 4 months. She states she has been seen multiple times for these swollen areas and placed on 3 different antibiotics and none of that helped. She states they have been swelling since the of her child about 4 months ago. Is alert and oriented respirations regular and unlabored speaking in full sentences walks with an even steady gait. TRAVEL OUTSIDE OF THE [place] IN LAST 30 DAYS: No - HPI Patient complains to provider of: Tender/swollen area Onset: Other - Months Onset/Duration: Gradual, Persistent Quality of pain: Pressure, Sharp Severity: Severe Pain Level: 5 Skin Character: Swelling, Tenderness Quality of rash: Painful Identify cause: No Exacerbated by: Movement Relieved by: Denies Similar symptoms previously: Yes Recently seen / treated by doctor: Yes - Related Data Allergies/Adverse Reactions: Penicillins Allergy (Verified 01/26/18 19:14) tramadol Allergy (Verified 01/26/18 19:14) Past Medical History - General Information source: Patient - Social History Smoking Status: Current Every Day Smoker Cigarette use (# per day): Yes - 1 or 2 cigarettes a day Chew tobacco use (# tins/day): No Smoking Education Provided: Yes - 4 Minutes Frequency of alcohol use: None Drug Abuse: None Occupation: [employer] Lives with: Spouse/Significant other Family History: Malignancy, Other - Sister was diagnosed and treated for spinal meningitis about 3 months ago.. denies: Arthritis, CAD, CVA, DM, Hyperlipidemia , Hypertension, Thyroid Disfunction Patient has suicidal ideation: No Patient has homicidal ideation: No - Past Medical History Cardiac Medical History: Reports: None Pulmonary Medical History: Reports: None EENT Medical History: Reports: None Neurological Medical History: Reports: None Endocrine Medical History: Reports: None Renal/ Medical History: Reports: None Malignancy Medical History: Reports: None GI Medical History: Reports: None Musculoskeletal Medical History: Reports Hx Arthritis - Chronic knee pain, Reports Hx Musculoskeletal Deformity, Reports Hx Musculoskeletal Trauma Skin Medical History: Reports None Psychiatric Medical History: Reports: Hx Attention Deficit Hyperactivity Disorder Traumatic Medical History: Reports: None Infectious Medical History: Reports: None Past Surgical History: Reports: Hx Cholecystectomy - Had ERCP the next day for stones in the duct. Apparently may have had more. No report of ulcer - Immunizations Immunizations up to date: Yes Hx Diphtheria, Pertussis, Tetanus Vaccination: Yes - 2013 Review of Systems - Review of Systems Constitutional: No symptoms reported EENT: No symptoms reported Cardiovascular: No symptoms reported Respiratory: No symptoms reported Gastrointestinal: No symptoms reported Genitourinary: No symptoms reported Female Genitourinary: No symptoms reported Musculoskeletal: No symptoms reported Skin: No symptoms reported Hematologic/Lymphatic: Enlarged lymph nodes - Left axilla Neurological/Psychological: No symptoms reported -: Yes All other systems reviewed and negative Physical Exam - Vital signs Vitals: Temp Pulse Resp BP Pulse Ox 98.8 F 69 16 125/52 L 98 01/26/18 19:25 01/26/18 19:25 01/26/18 19:25 01/26/18 19:25 01/26/18 19:25 Interpretation: Normal - General General appearance: Appears well, Alert - HEENT Head: Normocephalic, Atraumatic Eyes: Normal Pupils: PERRL - Respiratory Respiratory status: No respiratory distress Chest status: Nontender Breath sounds: Normal Chest palpation: Normal - Cardiovascular Rhythm: Regular Heart sounds: Normal auscultation Murmur: No - Abdominal Inspection: Normal Distension: No distension Bowel sounds: Normal Tenderness: Nontender Organomegaly: No organomegaly - Back Back: Normal, Nontender - Extremities General upper extremity: Normal inspection, Normal color, Normal ROM, Normal temperature, Other - Lymph nodes left axilla General lower extremity: Normal inspection, Nontender, Normal color, Normal ROM , Normal temperature, Normal weight bearing. No: Lisa's sign Shoulder: Normal, Nontender, Limited ROM - Due to painful lymph nodes in the left axilla Arm: Normal, Nontender Elbow: Normal, Nontender Forearm: Normal, Nontender Wrist: Normal, Nontender Hand: Normal, Nontender - Neurological Neuro grossly intact: Yes Cognition: Normal Orientation: AAOx4 Samira Coma Scale Eye Opening: Spontaneous Randolph Coma Scale Verbal: Oriented Randolph Coma Scale Motor: Obeys Commands Randolph Coma Scale Total: 15 Speech: Normal Motor strength normal: LUE, RUE, LLE, RLE Sensory: Normal - Psychological Associated symptoms: Normal affect, Normal mood - Skin Skin Temperature: Warm Skin Moisture: Dry Skin Color: Normal Location of irregularity: Other - Lymphadenopathy left axilla Course - Re-evaluation Re-evalutation: 01/27/18 00:[address] Hawk for the enlarged lymph nodes in the left axilla he agreed that there was no abscesses it was all lymphadenopathy. Patient was instructed to follow-up with surgeon for possible biopsy possible removal of the lymph nodes. Name and number of [facility] was given to patient and patient was instructed to call in the morning for follow-up. Patient states she will call us and she got up in the morning. Patient was discharged home. - Vital Signs Vital signs: Temp Pulse Resp BP Pulse Ox 97.3 F 70 16 122/68 99 01/26/18 23:59 01/26/18 23:59 01/26/18 23:59 01/26/18 23:59 01/26/18 23:59 - Diagnostic Test Radiology reviewed: Image reviewed, Reports reviewed Discharge - Discharge Clinical Impression: lymphadenopathy left axilla Condition: Stable Disposition: HOME, SELF-CARE Instructions: Family Physicians / Practices Additional Instructions: Lymphadenopathy You have enlargement of lymph glands, called lymphadenopathy. Lymph glands filter tissue fluids. They help to fight infection. Most of the time, enlarged lymph glands are not serious. Lymph glands may react to a viral or bacterial infection by becoming swollen and painful. When the infection goes away, the glands shrink. Sometimes a lymph gland will remain enlarged for a long time after an infection. Occasionally, a lymph gland may be overwhelmed by infection and form an abscess. If an enlarged lymph gland has signs that are suspicious for tumor, the doctor will recommend a biopsy. A suspicious gland usually is NOT painful, grows very slowly, and is rock-hard to touch. See the doctor or return if there is increasing swelling and redness, high fever, difficulty breathing, or any other change for the worse. Ibuprofen Ibuprofen is an excellent, safe drug for pain control. In addition, it has potent antiinflammatory effects which are beneficial, especially in the treatment of injuries, arthritis, or tendonitis. It's best to take ibuprofen with food. Persons with ulcer disease or allergy to aspirin should notify their physician of this before taking ibuprofen. Take the medication exactly as prescribed. Don't take additional doses unless instructed to do so by your doctor. If you develop wheezing, shortness of breath, hives, faintness, stomach pain, vomiting, or dark black stools, return for re-evaluation at once. Oral Narcotic Medication You have been given a prescription for pain control. This medication is a narcotic. It's best taken with food, as nausea can result if taken on an empty stomach. Don't operate machinery or drive within six hours of taking this medication. Do not combine this medicine with alcohol, or with any medication which can cause sedation (such as cold tablets or sleeping pills) unless you get permission from the physician. Narcotics tend to cause constipation. If possible, drink plenty of fluids and eat a diet high in fiber and fruits. FOLLOW-UP CARE: If you have been referred to a physician for follow-up care, call the physician s office for an appointment as you were instructed or within the next two days. If you experience worsening or a significant change in your symptoms, notify the physician immediately or return to the Emergency Department at any time for re-evaluation. Forms: Smoking Cessation Education, Return to Work Referrals: [facility] [Provider Group] - Follow up as needed
--- NOTE | 2018-01-26 23:21 | RADIOLOGY REPORT (SQ) ---
US EXTREMITY MUSCULOSKELETAL HISTORY: Left axillary swelling. Pain. COMPARISON: None. TECHNIQUE: Mao-scale and color Doppler images of the left axilla were obtained. FINDINGS/IMPRESSION: Focal heterogeneous hypoechoic region with internal debris measuring approximately 3.6 x 2.4 x 0.9 cm. There is mild surrounding and possibly internal color Doppler blood flow. Findings a represent abscess, purulent lymph node, or underlying mass. Consider further imaging if clinically indicated.
[2018-01-26] MEDS ORDERED: HYDROCODONE/ACETAMINOPHEN 5-325 MG (6 TAB/ER DISP) PO PRN (23:51)
[2018-01-27] VITALS: BP 122/68
== END 2018-01-26 23:59 | disposition home or self-care (01) ==
LOC: ER 19:13
DX: R59.0 Localized enlarged lymph nodes (principal); F17.210 Nicotine dependence, cigarettes, uncomplicated
CPT/HCPCS: 76881; 99284

== ENCOUNTER 2018-06-09 20:13 | Emergency (ER) | payer MEDICAID | END 2018-06-09 20:45 | disposition left against medical advice (07) | LOC: ER 20:13 | DX: Z53.21 Procedure and treatment not carried out due to patient leaving prior to being seen by health care provider (principal) ==

== ENCOUNTER 2018-06-12 18:54 | Emergency (ER) | payer MEDICAID ==
[2018-06-12 23:59] VITALS: BP 119/60
[2018-06-13] MEDS ORDERED: SULFAMETHOXAZOLE/TRIMETHOPRIM 800-160 MG TABLET PO ONE (00:04)
[2018-06-13] MEDS ORDERED: CEPHALEXIN 500 MG CAPSULE PO ONE (00:13)
--- NOTE | 2018-06-13 00:17 | ER Document Report ---
ED General - General Chief Complaint: Possible abscess Stated Complaint: POSSIBLE ABSCESS Time Seen by Provider: 06/12/18 23:38 Primary Care Provider: MAXX GARCIA MD [ACTIVE STAFF] - Follow up as needed Notes: Patient is a 27-year old female without chronic medical problems presents with complaints of 5-6 months of swelling and pain to her left axilla as well as an area on her left inner proximal upper extremity that was diagnosed as being an abscess. She states that it has never gone away completely, continues intimately open and draining purulent material. She notes a dull, throbbing, constant pain to her left axilla. Touching the area worsens the pain. Nothing improves pain. She has not yet followed up with her primary care physician regarding today's concerns. She denies fever or constitutional symptoms. TRAVEL OUTSIDE OF THE [place] IN LAST 30 DAYS: No - Related Data Allergies/Adverse Reactions: Penicillins Allergy (Verified 01/26/18 19:14) tramadol Allergy (Verified 01/26/18 19:14) Past Medical History - General Information source: Patient - Social History Smoking Status: Current Every Day Smoker Frequency of alcohol use: None Drug Abuse: None Lives with: Family Family History: Malignancy, Other - Sister was diagnosed and treated for spinal meningitis about 3 months ago.. denies: Arthritis, CAD, CVA, DM, Hyperlipidemia, Hypertension, Thyroid Disfunction Patient has suicidal ideation: No Patient has homicidal ideation: No Pulmonary Medical History: Denies: Hx Tuberculosis Neurological Medical History: Denies: Hx Seizures Renal/ Medical History: Denies: Hx Peritoneal Dialysis GI Medical History: Denies: Hx Gastroesophageal Reflux Disease Musculoskeletal Medical History: Reports Hx Arthritis - Chronic knee pain, Repor ts Hx Musculoskeletal Deformity, Reports Hx Musculoskeletal Trauma Psychiatric Medical History: Reports: Hx Attention Deficit Hyperactivity Disorder Past Surgical History: Reports: Hx Cholecystectomy - Had ERCP the next day for stones in the duct. Apparently may have had more. No report of ulcer. Denies: Hx Section, Hx Hysterectomy - Immunizations Immunizations up to date: Yes Hx Diphtheria, Pertussis, Tetanus Vaccination: Yes - 2013 Review of Systems - Review of Systems Notes: Constitutional: Negative for fever. HENT: Negative for sore throat. Eyes: Negative for visual changes. Cardiovascular: Negative for chest pain. Respiratory: Negative for shortness of breath. Gastrointestinal: Negative for abdominal pain, vomiting or diarrhea. Genitourinary: Negative for dysuria. Musculoskeletal: Negative for back pain. Skin: Positive for recurrent abscess to the left upper extremity Neurological: Negative for headaches, weakness or numbness. 10 point ROS negative except as marked above and in HPI. Physical Exam - Vital signs Vitals: Temp Pulse Resp BP Pulse Ox 97.8 F 71 16 114/48 L 98 06/12/18 19:33 06/12/18 19:33 06/12/18 19:33 06/12/18 19:33 06/12/18 19:33 Interpretation: Normal Notes: PHYSICAL EXAMINATION: GENERAL: Well-appearing, well-nourished and in no acute distress. HEAD: Atraumatic, normocephalic. EYES: Pupils equal round and reactive to light, extraocular movements intact, sclera anicteric, conjunctiva are normal. ENT: nares patent, oropharynx clear without exudates. Moist mucous membranes. NECK: Normal range of motion, supple without lymphadenopathy LUNGS: Breath sounds clear to auscultation bilaterally and equal. No wheezes rales or rhonchi. HEART: Regular rate and rhythm without murmurs ABDOMEN: Soft, nontender, normoactive bowel sounds. No guarding, no rebound. No masses appreciated. EXTREMITIES: Normal range of motion, no pitting or edema. No cyanosis. NEUROLOGICAL: No focal neurological deficits. Moves all extremities spontaneously and on command. PSYCH: Normal mood, normal affect. SKIN: Warm, Dry, normal turgor, there is a 1 x 0.5 cm area of erythema with an opening in the middle with serous fluid expressing from it proximal left upper extremity approximate 5-6 cm distal to the axilla Course - Re-evaluation Re-evalutation: 06/13/18 00:13 Patient presents with what appears to be an abscess that has already drained on the left inner biceps region with associated extensive lymphadenopathy of the left axilla. Lymphadenopathy is firm but tender to palpation, minimally mobile. There is no further area to be incised and drained. Patient has been placed on cephalexin and trimethoprim sulfamethoxazole for treatment of residual infection particular given the extensive lymphadenopathy. Patient reports that this lymphadenopathy has been present for almost 5 months. This is certainly also concerning for differential of malignancy. I have advised the patient that should the lymphadenopathy not resolve after 2 weeks with antibiotic treatment she needs to follow-up with surgery for biopsy of this lymph node region. At this time will discharge with return precautions and follow-up recommendations. Verbal discharge instructions given a the bedside and opportunity for questions given. Medication warnings reviewed. Patient is in agreement with this plan and has verbalized understanding of return precautions and the need for primary care follow-up in the next 24-72 hours. - Vital Signs Vital signs: Temp Pulse Resp BP Pulse Ox 97.7 F 73 20 119/60 97 06/12/18 23:58 06/12/18 23:58 06/12/18 23:58 06/12/18 23:58 06/12/18 23:58 Discharge - Discharge Clinical Impression: Axillary lymphadenopathy, Abscess of left upper extremity, Cellulitis of left upper extremity Condition: Good Disposition: HOME, SELF-CARE Additional Instructions: The rash is likely due to infection of your skin. You need to take the antibiotics as prescribed. You should also return if you develop fevers with temperature greater than 101, persistent vomiting, worsening pain, or have any other symptoms that are concerning to you. As we discussed, if the area of swelling underneath your armpit does not go away after completion of antibiotics you need to follow-up with the surgeon listed in the paperwork for consideration of biopsy of the lymph node region given how long this area has been swollen. Prescriptions: Cephalexin Monohydrate [Keflex 500 mg Capsule] 500 mg PO Q6H 7 Days capsule Sulfamethoxazole/Trimethoprim [Bactrim Ds Tablet] 2 tab PO BID #28 tablet Forms: Return to Work Referrals: MAXX GARCIA MD [ACTIVE STAFF] - Follow up as needed
== END 2018-06-13 00:39 | disposition home or self-care (01) ==
LOC: ER 18:54
DX: L02.412 Cutaneous abscess of left axilla (principal); L03.114 Cellulitis of left upper limb; R59.0 Localized enlarged lymph nodes; F17.200 Nicotine dependence, unspecified, uncomplicated; Z90.49 Acquired absence of other specified parts of digestive tract; Z88.0 Allergy status to penicillin; Z88.6 Allergy status to analgesic agent
CPT/HCPCS: 99282; J3490

== ENCOUNTER 2018-10-12 00:08 | Emergency (ER) | payer MEDICAID ==
--- NOTE | 2018-10-12 02:46 | ER Document Report ---
ED General - General Chief Complaint: Chest Pain Stated Complaint: CHEST PAIN Time Seen by Provider: 10/12/18 02:37 Notes: Patient is a 27 year old female that comes to the Emergency Department for chief complaint of right upper chest pain that has been going on for the past 2.5 days. She states it feels like a sharp pain that lasts a few seconds, it feels better if she holds her left shoulder up when it happens. She denies nausea or vomiting, difficulty eating, shortness of breath, back pain, fever, dizziness, passing out. She denies injury to the area. Past medical history of orthopedic injuries and she is on Depo. Denies . She denies any recreational drugs but she does smoke. She denies any current medications. TRAVEL OUTSIDE OF THE [place] IN LAST 30 DAYS: No - Related Data Allergies/Adverse Reactions: Penicillins Allergy (Verified 10/12/18 02:20) tramadol Allergy (Verified 10/12/18 02:20) Past Medical History - General Information source: Patient - Social History Smoking Status: Current Every Day Smoker Smoking Education Provided: Yes - <3 min Frequency of alcohol use: None Drug Abuse: None Lives with: Family Family History: Malignancy, Other - Sister was diagnosed and treated for spinal meningitis about 3 months ago.. denies: Arthritis, CAD, CVA, DM, Hyperlipidemia, Hypertension, Thyroid Disfunction Patient has suicidal ideation: No Patient has homicidal ideation: No Pulmonary Medical History: Denies: Hx Tuberculosis Neurological Medical History: Denies: Hx Seizures Renal/ Medical History: Denies: Hx Peritoneal Dialysis GI Medical History: Denies: Hx Gastroesophageal Reflux Disease Musculoskeletal Medical History: Reports Hx Arthritis - Chronic knee pain, Reports Hx Musculoskeletal Deformity, Reports Hx Musculoskeletal Trauma Psychiatric Medical History: Reports: Hx Attention Deficit Hyperactivity Disorder Past Surgical History: Reports: Hx Cholecystectomy - Had ERCP the next day for stones in the duct. Apparently may have had more. No report of ulcer. Denies: Hx Section, Hx Hysterectomy - Immunizations Immunizations up to date: Yes Hx Diphtheria, Pertussis, Tetanus Vaccination: Yes - 2013 Review of Systems - Review of Systems Constitutional: No symptoms reported EENT: No symptoms reported Cardiovascular: See HPI Respiratory: See HPI Gastrointestinal: No symptoms reported Genitourinary: No symptoms reported Female Genitourinary: No symptoms reported Musculoskeletal: See HPI Skin: No symptoms reported Hematologic/Lymphatic: No symptoms reported Neurological/Psychological: No symptoms reported Physical Exam - Vital signs Vitals: Temp Pulse Resp BP Pulse Ox 98.4 F 71 20 122/63 97 10/12/18 00:32 10/12/18 00:32 10/12/18 00:32 10/12/18 00:32 10/12/18 00:32 - Notes Notes: GENERAL: Alert, interacts well. No acute distress. HEAD: Normocephalic, atraumatic. EYES: Pupils equal, round, and reactive to light. Extraocular movements intact. ENT: Oral mucosa moist, tongue midline. Oropharynx unremarkable. Airway patent. NECK: Full range of motion. Supple. Trachea midline. LUNGS: Clear to auscultation bilaterally, no wheezes, rales, or rhonchi. No respiratory distress. Very specific reproducible tenderness over the right intercostal muscles over the anterior chest. HEART: Regular rate and rhythm. No murmur ABDOMEN: Soft, non-tender. Non-distended. GENITOURINARY: Deferred EXTREMITIES: Moves all 4 extremities spontaneously. No edema, normal radial and dorsalis pedis pulses bilaterally. No cyanosis. BACK: no cervical, thoracic, lumbar midline tenderness. No saddle anesthesia, normal distal neurovascular exam. Moves all extremities in full range of motion. NEUROLOGICAL: Alert and oriented x3. Normal speech. Cranial nerves II through XII grossly intact. PSYCH: Normal affect, normal mood. SKIN: Warm, dry, normal turgor. No rashes or lesions noted. Course - Re-evaluation Re-evalutation: EKG is nonischemic. Chest x-ray is unremarkable. Patient has very specific reproducible chest tenderness over the right chest wall. Appears to be costochondritis. Unremarkable vital signs. Very well-appearing patient. Patient sleeping and easily aroused on reevaluation. Patient denies drug abuse, she does not have a fever, I have a very low suspicion of ACS, pulmonary embolism, or any acute intrathoracic etiology based on her physical exam and reported symptoms. Discussed different options including [id number] anti-inflammatories, muscle relaxers. After discussion of options patient requested dexamethasone, Flexeril, requested doses now. Discussed follow-up and return precautions. Patient states understanding and agreement. She is going home with her significant other. - Vital Signs Vital signs: Temp Pulse Resp BP Pulse Ox 97.8 F 81 19 111/62 97 10/12/18 05:05 10/12/18 05:05 10/12/18 05:05 10/12/18 05:05 10/12/18 05:05 - EKG Interpretation by Me Additional EKG results interpreted by me: EKG shows sinus rhythm at a rate of 61. QTC of 4 3, NC interval of 148. Normal axis. Inverted T wave in V2. No ST segment changes. Discharge - Discharge Clinical Impression: Right-sided chest pain, Chest wall pain Condition: Stable Disposition: HOME, SELF-CARE Additional Instructions: Your evaluation tonight does not show any concerning findings. This appears to be inflammation of the cartilage between your ribs on the right side of your chest. You have been treated for this but symptoms usually take some time to resolve. Take [id number] anti-inflammatories, take muscle relaxer at night especially. You can apply heat to your chest wall. Follow-up with primary care. Come back if you worsen including passing out, difficulty breathing, severe worsening pain, fever/chills, vomiting, or any other concerning symptoms. Prescriptions: Cyclobenzaprine HCl [Flexeril 5 mg Tablet] 1 - 2 tab PO TID PRN #15 tablet PRN Reason: Forms: Return to Work
--- NOTE | 2018-10-12 03:29 | RADIOLOGY REPORT (SQ) ---
EXAM DESCRIPTION: XR CHEST 2 VIEWS COMPLETED DATE/TME: 10/12/2018 02:43 CLINICAL HISTORY: 27 years, Female, right sided chest pain Comparison: None FINDINGS: No focal lung consolidation. No pleural effusion. No pneumothorax. Cardiac and mediastinal silhouette is unremarkable. No acute osseous abnormality. Soft tissues are unremarkable. IMPRESSION: No acute findings. No focal lung consolidation.
[2018-10-12] MEDS ORDERED: DEXAMETHASONE SOD PHOS INJ 10 MG/1 ML VIAL IM ONE (04:26)
[2018-10-12] MEDS ORDERED: CYCLOBENZAPRINE HCL 10 MG TABLET PO ONE (04:26)
[2018-10-12 06:06] VITALS: BP 111/62
--- NOTE | 2018-10-12 10:31 | EKG REPORT ---
SEVERITY:- BORDERLINE ECG - SINUS RHYTHM BORDERLINE T ABNORMALITIES, ANTERIOR LEADS : Confirmed by: Lynn Hale MD 12-Oct-2018 10:30:25
== END 2018-10-12 05:05 | disposition home or self-care (01) ==
LOC: ER 00:08
DX: R07.9 Chest pain, unspecified (principal); R07.89 Other chest pain; Z88.0 Allergy status to penicillin; Z88.6 Allergy status to analgesic agent; Z90.49 Acquired absence of other specified parts of digestive tract; Z87.442 Personal history of urinary calculi
CPT/HCPCS: 93005; 99285; 96372; 71046; 93010; J3490; J1100

== ENCOUNTER 2019-02-09 21:03 | Emergency (ER) | payer MEDICAID ==
--- NOTE | 2019-02-09 22:14 | ER Document Report ---
ED Medical Screen (RME) - General Chief Complaint: Swollen Glands Stated Complaint: LEFT SIDED LYMPHNODE SWELLING/ARMPIT Time Seen by Provider: 02/09/19 22:14 TRAVEL OUTSIDE OF THE [place] IN LAST 30 DAYS: No - HPI Notes: 02/09/19 22:15 28-year-old female to the emergency department with painful swollen lump that is been draining drainage for the past several days. States that she has had this lump for some time and is supposed to have some outpatient surgery but it has been getting more more painful. She states that the pain radiates down her arm and into her axilla. She states that she has some swelling within the axilla. She denies any fevers or chills. She has not had this drained before. She is on antibiotics. Is up-to-date on her tetanus. Performed a medical screening exam on the patient. To her left axilla there is a fluctuant area suggestive of abscess. There is surrounding induration into the axilla. There is no streaking erythema or lymphangitis. We will have the patient seen and further evaluated and managed by main side colleague - Related Data Allergies/Adverse Reactions: Penicillins Allergy (Verified 10/12/18 02:20) tramadol Allergy (Verified 10/12/18 02:20) Past Medical History Pulmonary Medical History: Denies: Hx Tuberculosis Neurological Medical History: Denies: Hx Seizures Renal/ Medical History: Denies: Hx Peritoneal Dialysis GI Medical History: Denies: Hx Gastroesophageal Reflux Disease Musculoskeltal Medical History: Reports Hx Arthritis - Chronic knee pain, Reports Hx Musculoskeletal Deformity, Reports Hx Musculoskeletal Trauma Psychiatric Medical History: Reports: Hx Attention Deficit Hyperactivity Disorder Past Surgical History: Reports: Hx Cholecystectomy - Had ERCP the next day for stones in the duct. Apparently may have had more. No report of ulcer. Denies: Hx Section, Hx Hysterectomy - Immunizations Immunizations up to date: Yes Hx Diphtheria, Pertussis, Tetanus Vaccination: Yes - 2013 Physical Exam - Vital signs Vitals: Temp Pulse Resp BP Pulse Ox 98.0 F 73 18 121/55 L 99 02/09/19 21:42 02/09/19 21:42 02/09/19 21:42 02/09/19 21:42 02/09/19 21:42 Course - Vital Signs Vital signs: Temp Pulse Resp BP Pulse Ox 98.0 F 73 18 121/55 L 99 02/09/19 21:42 02/09/19 21:42 02/09/19 21:42 02/09/19 21:42 02/09/19 21:42
[2019-02-10] MEDS ORDERED: LIDOCAINE 1% INJ-PF (10 MG/ML) 30 ML SDV INJ ONE (01:13)
[2019-02-10] MEDS ORDERED: LIDOCAINE 4%/TETRACAINE 0.5%/EPI 0.18% 5 ML TOPICAL SOLN TOP ONE (01:13)
--- NOTE | 2019-02-10 02:12 | ER Document Report ---
HPI - HPI Patient complains to provider of: abscess Time Seen by Provider: 02/09/19 22:14 Pain Level: 4 Context: Patient is a 28-year-old female that comes to the emergency department for chief complaint of an abscess in the left axilla. She states she had a swollen lymph node in the area but now it became worse and an area just next to this has become red, tender, swollen, and drained earlier today. She denies fever/chills, nausea/vomiting, or any other complaints. She states she has had one abscess in another location but no other reported skin history. Tetanus up-to-date. Denied IV drug abuse. Denies . - REPRODUCTIVE Reproductive: DENIES: : Past Medical History - General Information source: Patient - Social History Smoking Status: Never Smoker Drug Abuse: None Lives with: Family Family History: Malignancy, Other - Sister was diagnosed and treated for spinal meningitis about 3 months ago.. denies: Arthritis, CAD, CVA, DM, Hyperlipidemia, Hypertension, Thyroid Disfunction Patient has suicidal ideation: No Patient has homicidal ideation: No Pulmonary Medical History: Denies: Hx Tuberculosis Neurological Medical History: Denies: Hx Seizures Renal/ Medical History: Denies: Hx Peritoneal Dialysis GI Medical History: Denies: Hx Gastroesophageal Reflux Disease Musculoskeletal Medical History: Reports Hx Arthritis - Chronic knee pain, Reports Hx Musculoskeletal Deformity, Reports Hx Musculoskeletal Trauma Psychiatric Medical History: Reports: Hx Attention Deficit Hyperactivity Disorder - childhood Past Surgical History: Reports: Hx Cholecystectomy - Had ERCP the next day for stones in the duct. Apparently may have had more. No report of ulcer. Denies: Hx Section, Hx Hysterectomy - Immunizations Immunizations up to date: Yes Hx Diphtheria, Pertussis, Tetanus Vaccination: Yes - 2013 [facility] Provider Document - CONSTITUTIONAL General Appearance: WD/WN, No Apparent Distress - INFECTION CONTROL TRAVEL OUTSIDE OF THE [place] IN LAST 30 DAYS: No - HEENT HEENT: Atraumatic - NECK Neck: Normal Inspection - RESPIRATORY Respiratory: Breath Sounds Normal, No Respiratory Distress - CARDIOVASCULAR Cardiovascular: Regular Rate, Regular Rhythm - GI/ABDOMEN Gastrointestinal: Abdomen Soft, Abdomen Non-Tender. negative: Abdomen Tender - BACK Back: Normal Inspection - MUSCULOSKELETAL/EXTREMETIES Musculoskeletal/Extremeties: MAEW, FROM, Non-Tender - NEURO Level of Consciousness: Awake, Alert, Appropriate Motor/Sensory: No Motor Deficit, No Sensory Deficit - DERM Integumentary: Warm, Dry, Abscess - Indurated, fluctuant area with a head in the left axillary area, there is nearby an area that appears to be a small lymph node without tenderness, induration, fluctuance, or erythema. Otherwise unremarkable. Course - Re-evaluation Re-evalutation: Abscess was incised and drained, small amount of purulent drainage, explored, cleansed, discussed options. Patient really wants to be on an antibiotic, she states she was on Bactrim for previous one and this did not result in any improvement, placed on doxycycline instead. Discussed follow-up and return precautions. Patient states appreciation and agreement. - Vital Signs Vital signs: Temp Pulse Resp BP Pulse Ox 98.0 F 73 18 121/55 L 99 02/09/19 21:42 02/09/19 21:42 02/09/19 21:42 02/09/19 21:42 02/09/19 21:42 Procedures - Incision and Drainage Left axilla Type: Single Anesthetic type: 1% Lidocaine mL's of anesthetic: 5 Blade size: 11 I&D procedure: Shurclens applied, Sterile dressing applied Incision Method: Incision made by scalpel Amount/type of drainage: Minimal purulent drainage, small amount of bloody drainage Discharge - Discharge Clinical Impression: Abscess Condition: Stable Disposition: HOME, SELF-CARE Additional Instructions: The abscess has been drained. Keep clean absorbent dressing over the area, clean with soap and water, avoid soaking the area. You can shower. Take the antibiotics as prescribed to completion. Follow-up with primary care for additional management. The nearby lymph node swelling should resolve with time. Follow-up with primary care. Return if you worsen including developing or spr eading redness, fever, vomiting, or any other concerning symptoms. Prescriptions: Doxycycline Hyclate 100 mg PO BID #14 capsule
[2019-02-10 02:52] VITALS: BP 110/62
[2019-02-10] MEDS ORDERED: OXYCODONE-ACETAMINOPHEN 5-325 MG TABLET PO ONE (03:11)
[2019-02-10] MEDS ORDERED: ONDANSETRON 4 MG TAB.RAPDIS PO ONE (03:11)
[2019-02-10] MEDS ORDERED: HYDROCODONE/ACETAMINOPHEN 5-325 MG (6 TAB/ER DISP) PO PRN (03:11)
== END 2019-02-10 03:45 | disposition home or self-care (01) ==
LOC: ER 21:03
DX: L02.412 Cutaneous abscess of left axilla (principal)
CPT/HCPCS: 10060; S0119; J3490 ×2; 99283

== ENCOUNTER 2019-03-19 15:31 | Emergency (ER) | payer MEDICAID ==
[2019-03-19] MEDS ORDERED: ONDANSETRON 4 MG TAB.RAPDIS PO ONE (16:04)
--- NOTE | 2019-03-19 16:05 | ER Document Report ---
ED Medical Screen (RME) - General Chief Complaint: Nausea/Vomiting/Diarrhea Stated Complaint: VOMITING,NAUSEA,ABDOMINAL PAIN Time Seen by Provider: 03/19/19 16:02 Mode of Arrival: Ambulatory Information source: Patient Notes: 28-year-old female with no past medical history presents emergency department with complaints of nausea vomiting diarrhea for the past 48 hours. Reports lower abdominal pain and back pain. Denies fever. Denies pain with void. I have greeted and performed a rapid initial assessment of this patient. A comprehensive ED assessment and evaluation of the patient, analysis of test results and completion of the medical decision making process will be conducted by additional ED providers. Dictation of this chart was performed using voice recognition software; therefore, there may be some unintended grammatical errors. TRAVEL OUTSIDE OF THE [place] IN LAST 30 DAYS: No - Related Data Allergies/Adverse Reactions: Penicillins Allergy (Verified 03/19/19 15:54) tramadol Allergy (Verified 03/19/19 15:54) Past Medical History - Social History Chew tobacco use (# tins/day): No Frequency of alcohol use: None Drug Abuse: None Pulmonary Medical History: Denies: Hx Tuberculosis Neurological Medical History: Denies: Hx Seizures Renal/ Medical History: Denies: Hx Peritoneal Dialysis GI Medical History: Denies: Hx Gastroesophageal Reflux Disease Musculoskeltal Medical History: Reports Hx Arthritis - Chronic knee pain, Reports Hx Musculoskeletal Deformity, Reports Hx Musculoskeletal Trauma Psychiatric Medical History: Reports: Hx Attention Deficit Hyperactivity Disorder - childhood Past Surgical History: Reports: Hx Cholecystectomy - Had ERCP the next day for stones in the duct. Apparently may have had more. No report of ulcer. Denies: Hx Section, Hx Hysterectomy - Immunizations Immunizations up to date: Yes Hx Diphtheria, Pertussis, Tetanus Vaccination: Yes - 2013 Physical Exam - Vital signs Vitals: Temp Pulse Resp BP Pulse Ox 98.2 F 93 18 118/54 L 96 03/19/19 15:40 03/19/19 15:40 03/19/19 15:40 03/19/19 15:40 03/19/19 15:40 Course - Vital Signs Vital signs: Temp Pulse Resp BP Pulse Ox 98.2 F 93 18 118/54 L 96 03/19/19 15:54 03/19/19 15:54 03/19/19 15:54 03/19/19 15:54 03/19/19 15:54
[2019-03-19 16:44] LABS: HEMATOCRIT 44.8 % (36.0-47.0); HEMOGLOBIN 15.5 g/dL (12.0-15.5); MEAN CORPUSCULAR HEMOGLOBIN 31.2 pg (27.0-33.4); MEAN CORPUSCULAR HGB CONC 34.7 g/dL (32.0-36.0); MEAN CORPUSCULAR VOLUME 90 fl (80-97); PLATELET COUNT 189 10^3/uL (150-450); RED BLOOD COUNT 4.98 10^6/uL (3.72-5.28); RED CELL DISTRIBUTION WIDTH 12.1 % (11.5-14.0); WHITE BLOOD COUNT 11.8 10^3/uL (4.0-10.5)
[2019-03-19 16:56] LABS: APPEARANCE,URINE SLIGHTLY-CLOUDY; BILIRUBIN,URINE NEGATIVE (NEGATIVE); COLOR,URINE AMBER; GLUCOSE, URINE NEGATIVE (NEGATIVE); KETONES,URINE 20 mg/dL (NEGATIVE); LEUKOCYTE ESTERASE,URINE NEGATIVE (NEGATIVE); NITRITE,URINE NEGATIVE (NEGATIVE); PROTEIN,URINE 30 mg/dL (NEGATIVE); URINE SPECIFIC GRAVITY 1.031
[2019-03-19 17:10] LABS: ALBUMIN 4.4 g/dL (3.5-5.0); ALKALINE PHOSPHATASE 68 U/L (38-126); ANION GAP 9 (5-19); ASPARTATE AMINO TRANSFERASE 23 U/L (14-36); BILIRUBIN,DIRECT 0.2 mg/dL (0.0-0.4); BILIRUBIN,TOTAL 0.9 mg/dL (0.2-1.3); BLOOD UREA NITROGEN 14 mg/dL (7-20); CALCIUM 9.5 mg/dL (8.4-10.2); CARBON DIOXIDE 25 mmol/L (22-30); CHLORIDE 103 mmol/L (98-107); GLUCOSE 113 mg/dL (75-110); POTASSIUM 4.2 mmol/L (3.6-5.0); TOTAL PROTEIN 7.5 g/dL (6.3-8.2)
[2019-03-19 17:25] LABS: ABSOLUTE LYMPHOCYTES# (MANUAL) 0.4 10^3/uL (0.5-4.7); ABSOLUTE MONOCYTES # (MANUAL) 0.5 10^3/uL (0.1-1.4); BASOPHILS % (MANUAL) 0 % (0-2); EOSINOPHILS % (MANUAL) 0 % (0-6); LYMPHOCYTES % (MANUAL) 3 % (13-45); MONOCYTES % (MANUAL) 4 % (3-13); PLATELET COMMENT ADEQUATE; SEGMENTED NEUTROPHILS % (MAN) 93 % (42-78); TOTAL CELLS COUNTED 100
--- NOTE | 2019-03-19 20:59 | ER Document Report ---
ED General - General Chief Complaint: Nausea/Vomiting/Diarrhea Stated Complaint: VOMITING,NAUSEA,ABDOMINAL PAIN Time Seen by Provider: 03/19/19 16:02 Primary Care Provider: AFUA WYNNE MD [Primary Care Provider] - Follow up as needed Mode of Arrival: Ambulatory TRAVEL OUTSIDE OF THE [place] IN LAST 30 DAYS: No - Related Data Allergies/Adverse Reactions: Penicillins Allergy (Verified 03/19/19 15:54) tramadol Allergy (Verified 03/19/19 15:54) Past Medical History - General Information source: Patient - Social History Smoking Status: Current Every Day Smoker Chew tobacco use (# tins/day): No Frequency of alcohol use: None Drug Abuse: None Family History: Malignancy, Other - Sister was diagnosed and treated for spinal meningitis about 3 months ago.. denies: Arthritis, CAD, CVA, DM, Hyperlipidemia, Hypertension, Thyroid Disfunction Patient has suicidal ideation: No Patient has homicidal ideation: No Pulmonary Medical History: Denies: Hx Tuberculosis Neurological Medical History: Denies: Hx Seizures Renal/ Medical History: Denies: Hx Peritoneal Dialysis GI Medical History: Denies: Hx Gastroesophageal Reflux Disease Musculoskeletal Medical History: Reports Hx Arthritis - Chronic knee pain, Reports Hx Musculoskeletal Deformity, Reports Hx Musculoskeletal Trauma Psychiatric Medical History: Reports: Hx Attention Deficit Hyperactivity Disorder - childhood Past Surgical History: Reports: Hx Cholecystectomy - Had ERCP the next day for stones in the duct. Apparently may have had more. No report of ulcer. Denies: Hx Section, Hx Hysterectomy - Immunizations Immunizations up to date: Yes Hx Diphtheria, Pertussis, Tetanus Vaccination: Yes - 2013 Physical Exam - Vital signs Vitals: Temp Pulse Resp BP Pulse Ox 98.2 F 93 18 118/54 L 96 03/19/19 15:40 03/19/19 15:40 03/19/19 15:40 03/19/19 15:40 03/19/19 15:40 - Notes Notes: Patient presents emerged department complaining of nausea vomiting and diarrhea is been going on for the past 3 days. The diarrhea is loose there is been no blood or recent antibiotics. She is unable to tolerate p.o.'s. Has any vaginal bleeding or discharge no urinary symptoms or fever. No chest pain or shortness of breath Past medical history is unremarkable. Surgical history includes a cholecystectomy. Social history she does not smoke or drink at all. Last menstrual period is unknown she had been on control pills till about a month ago Family history is noncontributory Review of systems pertinent positives and negatives in HPI otherwise all the systems were reviewed and acutely negative PHYSICIAN EXAM -vital signs are noted triage note and note from triage reviewed GENERAL: Well-appearing, well-nourished and in __mild distress____ HEAD: Atraumatic, normocephalic. EYES: Pupils equal round and reactive to light, extraocular movements intact, sclera anicteric, conjunctiva are normal. ENT: nares patent, oropharynx clear without exudates. Dry mucous membranes. NECK: supple without lymphadenopathy LUNGS: Breath sounds clear to auscultation bilaterally and equal. No wheezes rales or rhonchi. HEART: Regular rate and rhythm without murmurs ABDOMEN: Soft, nontender, normoactive bowel sounds. Nontender to deep palpation is no localizing tenderness EXTREMITIES: No deformity, no edema. NEUROLOGICAL: No focal neurological deficits. Moves all extremities spontaneously and on command. PSYCH: Normal mood, normal affect. SKIN: Warm, Dry, normal turgor, no rashes or lesions noted. BACK-nontender in the midline no pain with sitting there is some mild CVA tenderness bilaterally Differential diagnosis viral syndrome dehydration UTI dysfunction uterine bleeding Course - Vital Signs Vital signs: Temp Pulse Resp BP Pulse Ox 98.2 F 93 18 118/54 L 96 03/19/19 15:54 03/19/19 15:54 03/19/19 15:54 03/19/19 15:54 03/19/19 15:54 - Laboratory Result Diagrams: 03/19/19 16:20 03/19/19 16:20 Laboratory results interpreted by me: 03/19/19 03/19/19 03/19/19 16:15 16:20 16:20 WBC 11.8 H Seg Neuts % (Manual) 93 H Lymphocytes % (Manual) 3 L Abs Neuts (Manual) 11.0 H Abs Lymphs (Manual) 0.4 L Glucose 113 H Lipase 20.3 L Beta HCG, Quant Urine Protein 30 H Urine Ketones 20 H Urine Urobilinogen 4.0 H Urine HCG, Qual POSITIVE H 03/19/19 16:20 WBC Seg Neuts % (Manual) Lymphocytes % (Manual) Abs Neuts (Manual) Abs Lymphs (Manual) Glucose Lipase Beta HCG, Quant 85902.00 H Urine Protein Urine Ketones Urine Urobilinogen Urine HCG, Qual Discharge - Discharge Clinical Impression: Hyperemesis, Intrauterine UTI (urinary tract infection) Qualifiers: Urinary tract infection type: acute cystitis Disposition: HOME, SELF-CARE Instructions: Nitrofurantoin ([facility]), Urinary Tract Infection ([facility]), Vomiting ([facility]) Additional Instructions: Please review the discharge instructions, they will tell you about your disease/injury and what you need to return to the ED for Return to the ED if you feel worse or can follow-up with your family doctor Stay on clear liquids for 8 hours and then a bland diet for the next 2 to 3 days. Follow-up with the [facility] doctor in 2 to 3 days if not better otherwise in 1 to 2 weeks If you continue to have the vomiting despite taking the pyridoxine you can also start taking doxylamine aslo called unisom- 3-4x/day Prescriptions: Nitrofurantoin/Nitrofuran Mac [Macrobid 100 mg Capsule] 1 tab PO BID #14 capsule Pnv No.95/Ferrous Fum/Folic AC [ Vitamins Tablet] 1 each PO ASDIR PRN #30 tablet PRN Reason: Pyridoxine HCl (Vitamin B6) [Vitamin B-6] 25 mg PO ASDIR PRN #30 tablet PRN Reason: Referrals: AFUA WYNNE MD [Primary Care Provider] - Follow up as needed
[2019-03-19] MEDS ORDERED: NORMAL SALINE 1000 ML 1,000 ML IV ONE (21:01)
--- NOTE | 2019-03-19 22:46 | RADIOLOGY REPORT (SQ) ---
EXAM DESCRIPTION: US TRANSVAGINAL COMPLETED DATE/TME: 03/19/2019 21:01 CLINICAL HISTORY: 28 years, Female, Abdominal pain COMPARISON: None. TECHNIQUE: Emergent ultrasound LIMITATIONS: None. FINDINGS: The uterus measures 9.4 x 5.1 x 6.7 cm. There is an intrauterine gestational sac with yolk sac and pole. Heart tones obtained at 118 bpm. Right ovary measures 2.3 x 1.5 x 1.7 cm, left ovary measures 3.0 x 1.9 x 2.0 cm. Normal flow to each ovary. No adnexal cyst or mass. No free fluid. 2.5 x 1.1 cm hypoechoic area adjacent to the gestational sac could reflect small subchorionic hemorrhage/implantation bleed. Current ultrasound age 6 weeks 4 days. No free fluid IMPRESSION: Single, live IUP as above. Nonemergent follow-up recommended. Probable small subchorionic hemorrhage/implantation bleed copyright 2010 [employer]- All Rights Reserved
[2019-03-19] MEDS ORDERED: ONDANSETRON HCL INJ/PF 4 MG/2 ML SDV IV ONE (23:16)
[2019-03-19] MEDS ORDERED: DICYCLOMINE HCL 20 MG TABLET PO ONE (23:18)
[2019-03-20] MEDS ORDERED: NITROFURANTOIN MONOHYD/M-CRYST 100 MG CAPSULE PO ONE (01:44)
[2019-03-20 02:26] VITALS: BP 113/54
== END 2019-03-20 02:25 | disposition home or self-care (01) ==
LOC: ER 15:31
DX: O23.11 Infections of bladder in pregnancy, first trimester (principal); O21.9 Vomiting of pregnancy, unspecified; O26.891 Other specified pregnancy related conditions, first trimester; R19.7 Diarrhea, unspecified; R10.9 Unspecified abdominal pain; O99.331 Smoking (tobacco) complicating pregnancy, first trimester; Z3A.01 Less than 8 weeks gestation of pregnancy
CPT/HCPCS: 86900; 86901; 36415; 84702; 83690; 85025; 81025; 80053; 81001; 76817; J3490 ×2; S0119; J2405; J7030; 96361; 96374; 99284; J8499

== ENCOUNTER 2019-10-11 17:48 | Emergency (ER) | payer MEDICAID ==
--- NOTE | 2019-10-11 18:08 | ER Document Report ---
ED General - General Chief Complaint: Cough Stated Complaint: COUGH Primary Care Provider: AFUA WYNNE MD [ACTIVE STAFF] - Follow up as needed Notes: Patient is a 28-year-old white female who is G4, P3 reports due date next month presents emergency department chief complaint of cough x3 weeks. States is been a dry cough. Waxing and waning. Associated with nasal congestion and intermittent "stuffiness" in the right ear. Denies any sore throat. Denies chest pain or abdominal pain. No known fevers. No vomiting or diarrhea. No vaginal bleeding or discharge. No urinary complaints. She admits that she is having some bilateral lower extremity edema, worse at night that resolves upon waking in the morning. States she is unsure if this is related to the or not. Reports no complications with previous pregnancies. No history of preeclampsia or eclampsia. States her blood pressure is normal at baseline. She denies any recent travel or known sick contacts. [facility] let [facility] know about the ongoing cough and was referred here for further evaluation and she could not get into see them. She admits she quit smoking about 3 weeks ago. She was previously on Depo-Provera. No history of blood clots. No history of DVT or PE. No recent surgery, recent travel or recent immobilization. No hemoptysis, chest pain or shortness of breath. TRAVEL OUTSIDE OF THE [place] IN LAST 30 DAYS: No - Related Data Allergies/Adverse Reactions: Penicillins Allergy (Verified 03/19/19 15:54) tramadol Allergy (Verified 03/19/19 15:54) Past Medical History - Social History Smoking Status: Former Smoker Family History: Malignancy, Other - Sister was diagnosed and treated for spinal meningitis about 3 months ago.. denies: Arthritis, CAD, CVA, DM, Hyperlipidemia, Hypertension, Thyroid Disfunction Pulmonary Medical History: Denies: Hx Tuberculosis Neurological Medical History: Denies: Hx Seizures Renal/ Medical History: Denies: Hx Peritoneal Dialysis GI Medical History: Denies: Hx Gastroesophageal Reflux Disease Musculoskeletal Medical History: Reports Hx Arthritis - Chronic knee pain, Reports Hx Musculoskeletal Deformity, Reports Hx Musculoskeletal Trauma Psychiatric Medical History: Reports: Hx Attention Deficit Hyperactivity Disorder - childhood Past Surgical History: Reports: Hx Cholecystectomy - Had ERCP the next day for stones in the duct. Apparently may have had more. No report of ulcer. Denies: Hx Section, Hx Hysterectomy - Immunizations Immunizations up to date: Yes Hx Diphtheria, Pertussis, Tetanus Vaccination: Yes - 2013 Review of Systems - Review of Systems Notes: As per HPI otherwise negative Physical Exam - Vital signs Vitals: Temp Pulse Resp BP Pulse Ox 98.5 F 76 18 125/66 96 10/11/19 17:54 10/11/19 17:54 10/11/19 17:54 10/11/19 17:54 10/11/19 17:54 - General General appearance: Appears well, Alert In distress: None - HEENT Head: Normocephalic, Atraumatic Eyes: Normal Conjunctiva: Normal Extraocular movements intact: Yes Eyelashes: Normal Pupils: PERRL Ears: Normal External canal: Normal Tympanic membrane: Normal Sinus: Normal Nasal: Normal Mouth/Lips: Normal Pharynx: Normal Neck: Normal, Supple - Respiratory Respiratory status: No respiratory distress Chest status: Nontender Breath sounds: Normal Chest palpation: Normal - Cardiovascular Rhythm: Regular Heart sounds: Normal auscultation - Abdominal Inspection: Gravid female Bowel sounds: Normal Tenderness: Nontender - Extremities General upper extremity: Normal inspection, Nontender, Normal color, Normal ROM, Normal temperature General lower extremity: Normal inspection, Nontender, Normal color, Normal ROM, Normal temperature, Normal weight bearing. No: Lisa's sign - Neurological Neuro grossly intact: Yes Cognition: Normal Orientation: AAOx4 Samira Coma Scale Eye Opening: Spontaneous [place] Coma Scale Verbal: Oriented Samira Coma Scale Motor: Obeys Commands Colrain Coma Scale Total: 15 Speech: Normal Motor strength normal: LUE, RUE, LLE, RLE Sensory: Normal - Psychological Associated symptoms: Normal affect, Normal mood - Skin Skin Temperature: Warm Skin Moisture: Dry Skin Color: Normal Course - Re-evaluation Re-evalutation: 10/11/19 18:08 Patient is normotensive. Will check urinalysis to rule out proteinuria. Suspect dependent edema as physiologic with trimester of . Patient's history and physical consistent with a respiratory illness. Patient felt to be low risk for DVT however it was considered given her history of Depo provera , history of smoking, current status. Vitals at this time within normal limits, normotensive and not tachycardic. Feel DVT/PE low risk. Patient without chest pain or shortness of breath. No hemoptysis. No syncope. No tenderness in the lower extremities. No current edema. Suspect viral versus b acterial etiology of patient's complaints otherwise. Will obtain chest x-ray to rule out pneumonia or any segmental changes. Abdomen shielded. 10/11/19 19:19 No protein in the urine. Not tachycardic or hypertensive. No abdominal pain, vaginal bleeding or discharge. No UTI on urinalysis. Chest x-ray negative for any segmental changes or pneumonia. Suspect URI however given the patient is th ird trimester will treat with amoxicillin for possible superimposed bacterial infection. Counseled her regarding the importance of follow-up with the OB by calling their office tomorrow for further guidance and outpatient follow-up. She will self isolate at home until a negative COVID-19 swab is reported or until she receives further guidance from a positive result. I advised that she return here or any ER immediately with any new, persistent or worsening symptoms. She verbalized understood and agreed. - Vital Signs Vital signs: Temp Pulse Resp BP Pulse Ox 98.5 F 76 18 125/66 96 10/11/19 18:13 10/11/19 17:54 10/11/19 17:54 10/11/19 17:54 10/11/19 17:54 - Laboratory Laboratory results interpreted by me: 10/11/19 18:00 Urine Urobilinogen 4.0 H Ur Leukocyte Esterase TRACE H Discharge - Discharge Clinical Impression: Person under investigation for COVID-19 URI (upper respiratory infection) Qualifiers: URI type: unspecified URI Qualified Code(s): J06.9 - Acute upper respiratory infection, unspecified Condition: Stable Disposition: HOME, SELF-CARE Instructions: COVID-19 Guidance for Persons Under Investigation Additional Instructions: Please call your OB office tomorrow for further outpatient follow-up and guidance. Self isolated home until a negative COVID-19 swab is called to you or until you receive further instructions for a positive swab. Please return here or any ER immediately with any new, persistent or worsening symptoms. Prescriptions: Azithromycin [Zithromax 250 mg Tablet] 250 mg PO ASDIR PRN #4 tablet PRN Reason: Referrals: AFUA WYNNE MD [ACTIVE STAFF] - Follow up as needed
[2019-10-11 18:29] LABS: APPEARANCE,URINE SLIGHTLY-CLOUDY; BILIRUBIN,URINE NEGATIVE (NEGATIVE); COLOR,URINE YELLOW; GLUCOSE, URINE NEGATIVE (NEGATIVE); KETONES,URINE NEGATIVE (NEGATIVE); LEUKOCYTE ESTERASE,URINE TRACE (NEGATIVE); NITRITE,URINE NEGATIVE (NEGATIVE); PROTEIN,URINE NEGATIVE (NEGATIVE); URINE SPECIFIC GRAVITY 1.014
--- NOTE | 2019-10-11 19:15 | RADIOLOGY REPORT (SQ) ---
EXAM DESCRIPTION: CHEST SINGLE VIEW IMAGES COMPLETED DATE/TIME: 10/11/2019 6:40 pm REASON FOR STUDY: cough/shield abdomen COMPARISON: 10/12/2018 EXAM PARAMETERS: NUMBER OF VIEWS: One view. TECHNIQUE: Single frontal radiographic view of the chest acquired. RADIATION DOSE: NA LIMITATIONS: None. FINDINGS: LUNGS AND PLEURA: No opacities, masses or pneumothorax. No pleural effusion. MEDIASTINUM AND HILAR STRUCTURES: No masses. Contour normal. HEART AND VASCULAR STRUCTURES: Heart normal in size. Normal vasculature. BONES: No acute findings. HARDWARE: None in the chest. OTHER: No other significant finding. IMPRESSION: NO ACUTE RADIOGRAPHIC FINDING IN THE CHEST. TECHNICAL DOCUMENTATION: JOB ID: [id number] 2010 [employer]- All Rights Reserved Reading location - IP/workstation name: [email or web address]
[2019-10-11] MEDS ORDERED: AZITHROMYCIN 250 MG TABLET PO ONE (19:21)
[2019-10-11 19:37] VITALS: BP 118/70
== END 2019-10-11 19:41 | disposition home or self-care (01) ==
LOC: ER 17:48
DX: O26.93 Pregnancy related conditions, unspecified, third trimester (principal); J06.9 Acute upper respiratory infection, unspecified; Z20.828 Contact with and (suspected) exposure to other viral communicable diseases
CPT/HCPCS: 99283; 87635; 81001; 71045; Q0144; C9803

== ENCOUNTER 2019-11-09 19:35 | Outpatient (CLI) | payer MEDICAID ==
[2019-11-09 19:58] LABS: APPEARANCE,URINE SLIGHTLY-CLOUDY; BILIRUBIN,URINE NEGATIVE (NEGATIVE); COLOR,URINE YELLOW; GLUCOSE, URINE NEGATIVE (NEGATIVE); KETONES,URINE NEGATIVE (NEGATIVE); LEUKOCYTE ESTERASE,URINE MODERATE (NEGATIVE); NITRITE,URINE NEGATIVE (NEGATIVE); PROTEIN,URINE NEGATIVE (NEGATIVE); URINE SPECIFIC GRAVITY 1.017
[2019-11-09 20:20] LABS: URINE AMPHETAMINES SCREEN NEGATIVE; URINE BARBITURATES SCREEN NEGATIVE; URINE BENZODIAZEPINES SCREEN NEGATIVE; URINE COCAINE SCREEN NEGATIVE; URINE MARIJUANA (THC) SCREEN NEGATIVE; URINE METHADONE SCREEN NEGATIVE; URINE PHENCYCLIDINE SCREEN NEGATIVE
--- NOTE | 2019-11-09 20:58 | Non Stress Test Report ---
Non Stress Test Datetime Report Generated by CPN: 11/09/2019 20:58 DEMOGRAPHIC EGA NST: 40.1 INDICATION Indication for Study (NST) Other: lc MONITORING Monitor Explained: Monitor Explained; Test Explained Time on Monitor: 11/09/2019 19:53 Time off Monitor: 11/09/2019 20:51 NST Duration: 58 NST INTERVENTIONS NST Interventions: PO Hydration; Reposition Patient Physician Notified NST: Dr Beach BABY A: [id number] BABY A Movement : Present FHR Baseline : 135 Accelerations : 15X15 Decelerations : None Variability : Moderate 6-25bpm NST Review: Meets Criteria for Reactive NST NST Review and Verified By : Nury Servin RN NST Results: Reactive NST REPORT Report Trigger: Send Report
== END 2019-11-09 21:04 | disposition home or self-care (01) ==
LOC: LC 19:35
PROVIDERS: ATTEND Obstetrics & Gynecology Gynecology
DX: O47.1 False labor at or after 37 completed weeks of gestation (principal); O48.0 Post-term pregnancy; Z3A.40 40 weeks gestation of pregnancy; Z88.0 Allergy status to penicillin
CPT/HCPCS: 80307; 81005

== ENCOUNTER 2019-12-13 21:26 | Emergency (ER) | payer MEDICAID ==
--- NOTE | 2019-12-13 22:10 | ER Document Report ---
ED Medical Screen (RME) - General Chief Complaint: Skin Problem Stated Complaint: SKIN ISSUE/ARMPIT Time Seen by Provider: 12/13/19 22:05 Primary Care Provider: KANE HERNANDEZ MD [Primary Care Provider] - Follow up as needed Mode of Arrival: Ambulatory Information source: Patient Notes: Otherwise healthy 28-year-old female presenting to the emergency department chi ef complaint of abscess to her right axillary area.'s patient reports a fever started about a month ago and have progressively gotten worse over the last 2 weeks. She reports no drainage from the area. She has had similar presentations in the past and she states she has had to have them drained. She denies any fever or chills. There is a palpable area of induration with fluctuance that is very tender noted to the right axilla. I have greeted and performed a rapid initial assessment of this patient. A comprehensive ED assessment and evaluation of the patient, analysis of test results and completion of the medical decision making process will be conducted by additional ED providers. I have specifically instructed the patient or family members with the patient to immediately return to any nursing staff should anything change in the patient's condition or with their chief complaint. TRAVEL OUTSIDE OF THE [place] IN LAST 30 DAYS: No - Related Data Allergies/Adverse Reactions: Penicillins Allergy (Verified 03/19/19 15:54) tramadol Allergy (Verified 03/19/19 15:54) Past Medical History Pulmonary Medical History: Denies: Hx Tuberculosis Neurological Medical History: Denies: Hx Seizures Renal/ Medical History: Denies: Hx Peritoneal Dialysis GI Medical History: Denies: Hx Gastroesophageal Reflux Disease Musculoskeltal Medical History: Reports Hx Arthritis - Chronic knee pain, Reports Hx Musculoskeletal Deformity, Reports Hx Musculoskeletal Trauma Psychiatric Medical History: Reports: Hx Attention Deficit Hyperactivity Disorder - childhood Denies: Hx Depression Past Surgical History: Reports: Hx Cholecystectomy - Had ERCP the next day for stones in the duct. Apparently may have had more. No report of ulcer. Denies: Hx Section, Hx Hysterectomy - Immunizations Immunizations up to date: Yes Hx Diphtheria, Pertussis, Tetanus Vaccination: Yes - 2013 Physical Exam - Vital signs Vitals: Temp Pulse Resp BP Pulse Ox 98.6 F 58 L 18 136/78 H 100 12/13/19 21:43 12/13/19 21:43 12/13/19 21:43 12/13/19 21:43 12/13/19 21:43 Course - Vital Signs Vital signs: Temp Pulse Resp BP Pulse Ox 98.6 F 58 L 18 136/78 H 100 12/13/19 21:43 12/13/19 21:43 12/13/19 21:43 12/13/19 21:43 12/13/19 21:43 Doctor's Discharge - Discharge Referrals: KANE HERNANDEZ MD [Primary Care Provider] - Follow up as needed
[2019-12-14] MEDS ORDERED: OXYCODONE-ACETAMINOPHEN 5-325 MG TABLET PO ONE (02:11)
[2019-12-14] MEDS ORDERED: LIDOCAINE 1%/EPINEPHRINE INJ 20 ML VIAL INJ ONE (02:11)
[2019-12-14] MEDS ORDERED: PROMETHAZINE HCL 25 MG TABLET PO ONE (02:11)
--- NOTE | 2019-12-14 02:12 | ER Document Report ---
ED Skin Rash/Insect Bite/Abscs - General Chief Complaint: Skin Problem Stated Complaint: SKIN ISSUE/ARMPIT Time Seen by Provider: 12/13/19 22:05 Mode of Arrival: Ambulatory Notes: Patient is a 28-year-old female that comes to the emergency department for chief complaint of an abscess in her right axillary area. Patient states that symptoms started almost 2 weeks ago and have progressively worsened with increased swelling and pain. She denies drainage from the area, fever, nausea, vomiting. She states she has had an abscess drained in the past and the other armpit. She denies , she denies any daily medications, she denies any medical history otherwise. TRAVEL OUTSIDE OF THE [place] IN LAST 30 DAYS: No - Related Data Allergies/Adverse Reactions: Penicillins Allergy (Verified 12/14/19 01:54) tramadol Allergy (Verified 12/14/19 01:54) Past Medical History - General Information source: Patient - Social History Smoking Status: Current Every Day Smoker Chew tobacco use (# tins/day): No Frequency of alcohol use: None Drug Abuse: None Lives with: Family Family History: Malignancy, Other - Sister was diagnosed and treated for spinal meningitis about 3 months ago.. denies: Arthritis, CAD, CVA, DM, Hyperlipidemia, Hypertension, Thyroid Disfunction Patient has homicidal ideation: No Pulmonary Medical History: Denies: Hx Tuberculosis Neurological Medical History: Denies: Hx Seizures Renal/ Medical History: Denies: Hx Peritoneal Dialysis GI Medical History: Denies: Hx Gastroesophageal Reflux Disease Musculoskeletal Medical History: Reports Hx Arthritis - Chronic knee pain, Reports Hx Musculoskeletal Deformity, Reports Hx Musculoskeletal Trauma Psychiatric Medical History: Reports: Hx Attention Deficit Hyperactivity Disorder - childhood Denies: Hx Depression Past Surgical History: Reports: Hx Cholecystectomy - Had ERCP the next day for stones in the duct. Apparently may have had more. No report of ulcer. Denies: Hx Section, Hx Hysterectomy - Immunizations Immunizations up to date: Yes Hx Diphtheria, Pertussis, Tetanus Vaccination: Yes - 2013 Review of Systems - Review of Systems Constitutional: No symptoms reported EENT: No symptoms reported Cardiovascular: No symptoms reported Respiratory: No symptoms reported Gastrointestinal: No symptoms reported Genitourinary: No symptoms reported Female Genitourinary: No symptoms reported Musculoskeletal: See HPI Skin: See HPI Hematologic/Lymphatic: No symptoms reported Neurological/Psychological: No symptoms reported Physical Exam - Vital signs Vitals: Temp Pulse Resp BP Pulse Ox 98.6 F 58 L 18 136/78 H 100 12/13/19 21:43 12/13/19 21:43 12/13/19 21:43 12/13/19 21:43 12/13/19 21:43 - Notes Notes: GENERAL: Alert, interacts well. No acute distress. HEAD: Normocephalic, atraumatic. EYES: Pupils equal, round, and reactive to light. Extraocular movements intact. ENT: Oral mucosa moist, tongue midline. Oropharynx unremarkable. Airway patent. NECK: Full range of motion. Supple. Trachea midline. No lymphadenopathy. LUNGS: Clear to auscultation bilaterally, no wheezes, rales, or rhonchi. No respiratory distress. Non-tender chest wall. HEART: Regular rate and rhythm. No murmur ABDOMEN: Soft, non-tender. Non-distended. EXTREMITIES: Moves all 4 extremities spontaneously. No edema, normal radial and dorsalis pedis pulses bilaterally. No cyanosis. BACK: no cervical, thoracic, lumbar midline tenderness. No saddle anesthesia, normal distal neurovascular exam. NEUROLOGICAL: Alert and oriented x3. Normal speech. Cranial nerves II through XII grossly intact. Strength 5/5 in all extremities. PSYCH: Normal affect, normal mood. SKIN: There is an indurated, fluctuant area with mild erythema over the right central axillary area. No spreading cellulitis, no nearby lymphadenopathy, unremarkable otherwise. Course - Re-evaluation Re-evalutation: Abscess was incised and drained. This was somewhat deep with good purulent expression, discussed with patient, she states she has done very well with packing in the past, packing was therefore placed. Discussed care, expectations, follow-up, return cautions. Patient states understanding and agreement. - Vital Signs Vital signs: Temp Pulse Resp BP Pulse Ox 98.2 F 79 14 146/82 H 100 12/14/19 03:37 12/14/19 03:37 12/14/19 03:37 12/14/19 03:37 12/14/19 03:37 Procedures - Incision and Drainage Right axilla Type: Simple Anesthetic type: 1% Lidocaine w/epi mL's of anesthetic: 9 Blade size: 11 I&D procedure: Shurclens applied, Iodoform packing placed, Sterile dressing applied Incision Method: Incision made by scalpel Amount/type of drainage: about 5 cc of purulent drainage Discharge - Discharge Clinical Impression: Abscess Condition: Stable Disposition: HOME, SELF-CARE Additional Instructions: The abscess has been drained. The packing needs to be removed in 2 days. Keep the area clean, clean with soap and water, keep clean covering over the area. Take the antibiotics as prescribed to completion. Return if you worsen including severe worsening pain, spreading redness, fever, vomiting, or any other concerning symptoms. Prescriptions: Sulfamethoxazole/Trimethoprim [Bactrim Ds Tablet] 1 each PO BID #14 tablet
[2019-12-14] MEDS ORDERED: HYDROCODONE/ACETAMINOPHEN 5-325 MG (6 TAB/ER DISP) PO PRN (03:25)
[2019-12-14 03:44] VITALS: BP 146/82
== END 2019-12-14 03:44 | disposition home or self-care (01) ==
LOC: ER 21:26
DX: L02.411 Cutaneous abscess of right axilla (principal); F17.200 Nicotine dependence, unspecified, uncomplicated; Z88.0 Allergy status to penicillin; Z88.6 Allergy status to analgesic agent
CPT/HCPCS: 99283; 10060; J3490 ×2

== ENCOUNTER 2020-04-08 13:41 | Emergency (ER) | payer MEDICAID ==
[2020-04-08 14:14] VITALS: BP 108/60
--- NOTE | 2020-04-08 15:29 | ER Document Report ---
ED Eye Complaint - General Chief Complaint: Eye Pain Stated Complaint: LEFT EYE PROBLEM Time Seen by Provider: 04/08/20 15:22 Primary Care Provider: KANE HERNANDEZ MD [Primary Care Provider] - Follow up as needed Mode of Arrival: Ambulatory Information source: Patient TRAVEL OUTSIDE OF THE [place] IN LAST 30 DAYS: No - HPI Patient complains to provider of: Left eye redness Notes: Patient here with complaints of left eye redness and tearing. The patient states that she hit her eye on a box a few weeks ago. She also states that she had "pinkeye in her right eye "about a week ago. 2 days ago she started noticing some redness and tearing to her left eye. She denies any severe pain. She denies any blurred or loss of vision. She denies any green drainage. No severe headache. No numbness, tingling, weakness. No nausea, vomiting, diarrhea. She does not wear contacts. Pain is mild, nothing in particular makes it better or worse. No chest pain or shortness of breath. No other complaints at this time. - Related Data Allergies/Adverse Reactions: Penicillins Allergy (Verified 12/14/19 01:54) tramadol Allergy (Verified 12/14/19 01:54) Past Medical History - Social History Smoking Status: Current Every Day Smoker Frequency of alcohol use: None Drug Abuse: None Family History: Malignancy, Other - Sister was diagnosed and treated for spinal meningitis about 3 months ago.. denies: Arthritis, CAD, CVA, DM, Hyperlipidemia, Hypertension, Thyroid Disfunction Pulmonary Medical History: Denies: Hx Tuberculosis Neurological Medical History: Denies: Hx Seizures Renal/ Medical History: Denies: Hx Peritoneal Dialysis GI Medical History: Denies: Hx Gastroesophageal Reflux Disease Musculoskeletal Medical History: Reports Hx Arthritis - Chronic knee pain, Reports Hx Musculoskeletal Deformity, Reports Hx Musculoskeletal Trauma Psychiatric Medical History: Reports: Hx Attention Deficit Hyperactivity Disorder - childhood Denies: Hx Depression Past Surgical History: Reports: Hx Cholecystectomy - Had ERCP the next day for stones in the duct. Apparently may have had more. No report of ulcer. Denies: Hx Section, Hx Hysterectomy - Immunizations Immunizations up to date: Yes Hx Diphtheria, Pertussis, Tetanus Vaccination: Yes - 2013 Review of Systems - Review of Systems -: Yes All other systems reviewed and negative Physical Exam - Vital signs Vitals: Temp Pulse Resp BP Pulse Ox 98.6 F 92 20 108/60 95 04/08/20 14:12 04/08/20 14:12 04/08/20 14:12 04/08/20 14:12 04/08/20 14:12 - Notes Notes: GENERAL: alert, cooperative, nontoxic, no distress. HEAD: normocephalic, atraumatic EYES: Left conjunctivo with mild injection. Tearing noted. No purulent drainage. No foreign body identified. Upper lid everted with no foreign body. Pupil equal round react to light. No photophobia. No corneal abrasion, negative Henri sign, no dendritic lesions. EARS: no external swelling, no external redness NOSE: atraumatic, no external swelling MOUTH/THROAT: mucous membranes moist and pink NECK: soft, supple, full range of motion, no meningismus. CHEST: no distress, lungs clear and equal throughout. No wheezing, rales, rhonchi. CARDIAC: regular rate and rhythm, no murmur, normal capillary refill, normal pulses. BACK: full range of motion, no CVA tenderness. EXTREMITIES: full range of motion of all extremities. No redness, no swelling. NEURO: alert and oriented 3, no focal deficits, full range of motion of all extremities. PYSCH: appropriate mood, affect. Patient is cooperative. SKIN: pink, warm, dry, no rash. Course - Re-evaluation Re-evalutation: 04/08/20 15:55 Patient resting comfortably at this time. Patient is nontoxic-appearing with stable vitals. Patient noted to have redness to the left eye. I do not visualize any foreign bodies. There is no abrasions or dendritic lesions. See nursing notes for visual acuity. Patient with nonspecific conjunctivitis. Patient will be discharged home with prescription for antibiotic drops and instructions to follow-up with ophthalmology if not better in the next 2 to 3 days, sooner for worsening pain, spreading redness, severe blurred vision, persistent vomiting, or for any further concerns. No sign of periorbital or orbital cellulitis. - Vital Signs Vital signs: Temp Pulse Resp BP Pulse Ox 98.6 F 92 20 108/60 95 04/08/20 14:12 04/08/20 14:12 04/08/20 14:12 04/08/20 14:12 01/04/21 14:12 - Laboratory Results Critical Laboratory Results Reviewed: No Critical Results - Radiology Results Critical Radiology Results Reviewed: No Critical Results Discharge - Discharge Clinical Impression: Conjunctivitis Qualifiers: Conjunctivitis type: acute Acute conjunctivitis type: unspecified Laterality: left Qualified Code(s): H10.32 - Unspecified acute conjunctivitis, left eye Condition: Stable Disposition: HOME, SELF-CARE Instructions: Conjunctivitis ([facility]) Additional Instructions: Take medications as prescribed. Avoid wiping or rubbing your eye. Follow-up with ophthalmology if not better in the next 2 to 3 days, sooner for worsening pain, high fever, spreading redness around the eye, blurred vision, persistent vomiting, or any further concerns. Prescriptions: Polymyxin B Sulfate/Tmp [Polytrim Oph Soln 10 ml] 2 drop OP Q6H #1 bottle Forms: Smoking Cessation Education, Return to Work Referrals: KANE HERNANDEZ MD [Primary Care Provider] - Follow up as needed GILBERT SEGOVIA MD [ACTIVE STAFF] - Follow up as needed
== END 2020-04-08 16:10 | disposition home or self-care (01) ==
LOC: ER 13:41
DX: H10.32 Unspecified acute conjunctivitis, left eye (principal); H57.12 Ocular pain, left eye; Z88.0 Allergy status to penicillin; Z88.8 Allergy status to other drugs, medicaments and biological substances; F17.200 Nicotine dependence, unspecified, uncomplicated
CPT/HCPCS: 99283